=== PATIENT | male | born 1945 | race African-American/Black ===

== ENCOUNTER → 2016-06-13 | Outpatient (CLI) | payer MEDICARE, OTHER ==
[2016-06-13 11:55] LABS: Basophils # (auto) 0.1 uL; Basophils % (auto) 0.7 % (0.0-2.0); DEFINITIVE VIEW TRANSMISSION; Eosinophils # (auto) 0.1 uL; Hematocrit 45.5 % (41.0-53.0); Hemoglobin 14.7 g/dL (13.5-17.5); Lymphocytes # (auto) 1.8 uL; Lymphocytes % (auto) 24.3 % (10.0-50.0); Mean Corpuscular Hemoglobin 29.1 pg (28.0-32.0); Mean Corpuscular Hgb Conc. 32.2 g/dL (32.0-36.0); Mean Corpuscular Volume 90.4 fL (80.0-100.0); Mean Platelet Volume 8.2 fL (7.4-10.4); Monocytes # (auto) 1.1 uL; Neutrophils # (auto) 4.5 uL; Platelet Count (auto) 644 10^3/uL (140-450); SUSPECT VIEW TRANSMISSION; White Blood Cell 7.6 10^3/uL (4.4-10.8)
[2016-06-13 11:58] LABS: Urine Bilirubin Negative (Negative); Urine Color Yellow (Yellow); Urine Glucose Normal (Normal); Urine Ketone Negative (Negative); Urine Nitrite Negative (Negative); Urine RBC 5 /hpf (0 - 3); Urine Squamous Epithelial Cell FEW /hpf (<5); Urine Urobilinogen Normal (Negative); Urine pH 5.5 (5.0-8.0)
[2016-06-13 12:00] LABS: Urine Blood 1+ /uL (Negative)
[2016-06-13 12:05] LABS: Red Cell Distribution Width 22.3 % (11.6-16.0)
[2016-06-13 12:11] LABS: Albumin 4.1 g/dL (3.4-5.0); BUN/Creatinine Ratio 10.3; Bilirubin, Total 1.2 mg/dL (0.2-1.0); Calcium 9.1 mg/dL (8.5-10.1); Potassium 4.2 mmol/L (3.5-5.1); Total Protein 8.1 g/dL (6.4-8.2)
== END | disposition home or self-care (01) ==
LOC: LAB 11:08
PROVIDERS: ATTEND Internal Medicine
DX: D47.3 Essential (hemorrhagic) thrombocythemia (principal)
CPT/HCPCS: 36415; 80053; 80061; 81001; 83540; 85025

== ENCOUNTER → 2016-06-27 | Outpatient (CLI) | payer MEDICARE, OTHER | END | disposition home or self-care (01) | LOC: LAB 10:47 | PROVIDERS: ATTEND Internal Medicine | DX: Z01.89 Encounter for other specified special examinations (principal) | CPT/HCPCS: 36415; 82565; 84520 ==

== ENCOUNTER → 2016-07-26 | Outpatient (CLI) | payer MEDICARE, OTHER, BC ==
[2016-07-26 12:01] LABS: Basophils # (auto) 0.1 uL; Basophils % (auto) 0.9 % (0.0-2.0); DEFINITIVE VIEW TRANSMISSION; Eosinophils # (auto) 0.1 uL; Eosinophils % (auto) 1.1 % (0.0-7.0); Hematocrit 49.7 % (41.0-53.0); Lymphocytes # (auto) 1.4 uL; Lymphocytes % (auto) 22.7 % (10.0-50.0); Mean Corpuscular Hemoglobin 29.1 pg (28.0-32.0); Mean Corpuscular Hgb Conc. 32.2 g/dL (32.0-36.0); Mean Corpuscular Volume 90.5 fL (80.0-100.0); Mean Platelet Volume 8.4 fL (7.4-10.4); Monocytes # (auto) 0.8 uL; Monocytes % (auto) 13.1 % (0.0-12.0); Neutrophils # (auto) 3.9 uL; Neutrophils % (auto) 62.2 % (37.0-80.0); Platelet Count (auto) 600 10^3/uL (140-450); White Blood Cell 6.2 10^3/uL (4.4-10.8)
[2016-07-26 12:05] LABS: Red Cell Distribution Width 21.9 % (11.6-16.0)
[2016-07-26 12:24] LABS: Anisocytosis Moderate; Large Platelets FEW; Ovalocytes FEW; Platelet Estimate Increased
[2016-07-26 12:25] LABS: Stomatocytes Few; Wright Stain Ready for Review
[2016-07-26 13:18] LABS: Albumin 4.2 g/dL (3.4-5.0); BUN/Creatinine Ratio 8.1; Bilirubin, Total 1.3 mg/dL (0.2-1.0); Calcium 9.4 mg/dL (8.5-10.1); Total Protein 8.4 g/dL (6.4-8.2)
== END | disposition home or self-care (01) ==
LOC: LAB 10:37
PROVIDERS: ATTEND Internal Medicine
DX: R10.9 Unspecified abdominal pain (principal)
CPT/HCPCS: 36415; 80053; 82728; 83540; 83550; 83615; 85025; 85652; 86141

== ENCOUNTER → 2016-09-13 | Outpatient (CLI) | payer MEDICARE, OTHER, BC ==
[2016-09-13 11:31] LABS: Basophils # (auto) 0.1 uL; Basophils % (auto) 0.8 % (0.0-2.0); CONDITION Y; DEFINITIVE SEE PRINTOUT; Eosinophils # (auto) 0.1 uL; Eosinophils % (auto) 1.6 % (0.0-7.0); Hematocrit 47.9 % (41.0-53.0); Hemoglobin 15.4 g/dL (13.5-17.5); Lymphocytes # (auto) 1.6 uL; Lymphocytes % (auto) 21.1 % (10.0-50.0); Mean Corpuscular Hemoglobin 28.7 pg (28.0-32.0); Mean Corpuscular Hgb Conc. 32.1 g/dL (32.0-36.0); Mean Corpuscular Volume 89.3 fL (80.0-100.0); Mean Platelet Volume 8.4 fL (7.4-10.4); Monocytes # (auto) 1.1 uL; Neutrophils # (auto) 4.8 uL; Neutrophils % (auto) 62.5 % (37.0-80.0); Platelet Count (auto) 647 10^3/uL (140-450); Red Cell Distribution Width 22.1 % (11.6-16.0); SUSPECT SEE PRINTOUT; White Blood Cell 7.6 10^3/uL (4.4-10.8)
[2016-09-13 11:57] LABS: Albumin 3.7 g/dL (3.4-5.0); BUN/Creatinine Ratio 10.2; Bilirubin, Total 0.7 mg/dL (0.2-1.0); Calcium 8.5 mg/dL (8.5-10.1); Potassium 3.9 mmol/L (3.5-5.1); Total Protein 7.7 g/dL (6.4-8.2)
== END | disposition home or self-care (01) ==
LOC: LAB 11:02
PROVIDERS: ATTEND Internal Medicine
DX: D47.3 Essential (hemorrhagic) thrombocythemia (principal)
CPT/HCPCS: 36415; 80053; 83615; 85025

== ENCOUNTER → 2016-09-21 | Outpatient (CLI) | payer MEDICARE, OTHER | END | disposition home or self-care (01) | LOC: LAB 11:49 | PROVIDERS: ATTEND Internal Medicine | DX: D47.3 Essential (hemorrhagic) thrombocythemia (principal) | CPT/HCPCS: 82270 ==

== ENCOUNTER → 2016-10-20 | Outpatient (CLI) | payer MEDICARE, OTHER ==
[2016-10-20 11:08] LABS: Basophils # (auto) 0.1 uL; CONDITION Y; DEFINITIVE SEE PRINTOUT; Eosinophils # (auto) 0.1 uL; Eosinophils % (auto) 1.4 % (0.0-7.0); Hematocrit 45.5 % (41.0-53.0); Hemoglobin 14.9 g/dL (13.5-17.5); Lymphocytes # (auto) 1.7 uL; Mean Corpuscular Hemoglobin 28.7 pg (28.0-32.0); Mean Corpuscular Hgb Conc. 32.6 g/dL (32.0-36.0); Mean Corpuscular Volume 88.1 fL (80.0-100.0); Mean Platelet Volume 8.6 fL (7.4-10.4); Monocytes # (auto) 0.9 uL; Monocytes % (auto) 12.5 % (0.0-12.0); Neutrophils # (auto) 4.5 uL; Neutrophils % (auto) 62.1 % (37.0-80.0); Platelet Count (auto) 651 10^3/uL (140-450); SUSPECT SEE PRINTOUT; White Blood Cell 7.2 10^3/uL (4.4-10.8)
[2016-10-20 11:16] LABS: Red Cell Distribution Width 23.1 % (11.6-16.0)
[2016-10-20 11:47] LABS: Anisocytosis Slight; Large Platelets FEW; Ovalocytes FEW; Platelet Estimate Increa
== END | disposition home or self-care (01) ==
LOC: LAB 10:31
PROVIDERS: ATTEND Internal Medicine
DX: D47.3 Essential (hemorrhagic) thrombocythemia (principal)
CPT/HCPCS: 36415; 85025

== ENCOUNTER → 2016-11-02 | Outpatient (CLI) | payer MEDICARE, OTHER | END | disposition home or self-care (01) | LOC: LAB 11:00 | PROVIDERS: ATTEND Internal Medicine | DX: D47.3 Essential (hemorrhagic) thrombocythemia (principal) | CPT/HCPCS: 85097 ==

== ENCOUNTER → 2016-12-13 | Outpatient (CLI) | payer MEDICARE, OTHER ==
[2016-12-13 12:25] LABS: Basophils # (auto) 0.1 uL; Eosinophils # (auto) 0.1 uL; Hemoglobin 14.5 g/dL (13.5-17.5); Lymphocytes # (auto) 1.8 uL; Nucleated Red Blood Cells % 0.2 %; White Blood Cell 8.3 10^3/uL (4.4-10.8)
[2016-12-13 12:27] LABS: Basophils % (auto) 0.8 % (0.0-2.0); Eosinophils % (auto) 1.5 % (0.0-7.0); Lymphocytes % (auto) 21.2 % (10.0-50.0); Mean Corpuscular Hemoglobin 29.3 pg (28.0-32.0); Mean Corpuscular Hgb Conc. 32.9 g/dL (32.0-36.0); Mean Corpuscular Volume 88.9 fL (80.0-100.0); Mean Platelet Volume 8.1 fL (6.9-10.8); Monocytes # (auto) 1.1 uL; Monocytes % (auto) 13.8 % (0.0-12.0); Neutrophils # (auto) 5.2 uL; Neutrophils % (auto) 62.7 % (37.0-80.0); Platelet Count (auto) 566 10^3/uL (140-450)
[2016-12-13 13:13] LABS: Anisocytosis Slight
[2016-12-13 13:14] LABS: Large Platelets FEW; Ovalocytes FEW; Platelet Estimate Marked; Schistocytes FEW
== END | disposition home or self-care (01) ==
LOC: LAB 11:41
PROVIDERS: ATTEND Internal Medicine
DX: D47.3 Essential (hemorrhagic) thrombocythemia (principal)
CPT/HCPCS: 36415; 85025

== ENCOUNTER → 2017-01-24 | Outpatient (CLI) | payer MEDICARE, OTHER ==
[2017-01-24 10:56] LABS: Eosinophils # (auto) 0.1 uL; Hemoglobin 14.9 g/dL (13.5-17.5); Mean Platelet Volume 8.4 fL (6.9-10.8); Nucleated Red Blood Cells % 0.1 %; White Blood Cell 6.9 10^3/uL (4.4-10.8)
[2017-01-24 10:57] LABS: Basophils # (auto) 0.1 uL; Basophils % (auto) 2.1 % (0.0-2.0); Eosinophils % (auto) 1.2 % (0.0-7.0); Hematocrit 45.2 % (41.0-53.0); Lymphocytes # (auto) 1.7 uL; Mean Corpuscular Volume 90.9 fL (80.0-100.0); Monocytes % (auto) 14.2 % (0.0-12.0); Neutrophils # (auto) 4.1 uL; Neutrophils % (auto) 58.5 % (37.0-80.0); Platelet Count (auto) 446 10^3/uL (140-450)
[2017-01-24 11:07] LABS: Red Cell Distribution Width 24.4 % (11.8-14.3)
[2017-01-24 11:37] LABS: BUN/Creatinine Ratio 8.7; Bilirubin, Total 1.1 mg/dL (0.2-1.0); Calcium 9.3 mg/dL (8.5-10.1); Potassium 4.1 mmol/L (3.5-5.1); Total Protein 8.3 g/dL (6.4-8.2)
== END | disposition home or self-care (01) ==
LOC: LAB 09:57
PROVIDERS: ATTEND Internal Medicine
DX: D47.3 Essential (hemorrhagic) thrombocythemia (principal)
CPT/HCPCS: 36415; 80053; 83615; 85025

== ENCOUNTER → 2017-02-16 | Outpatient (CLI) | payer MEDICARE, OTHER ==
[2017-02-16 13:05] LABS: Basophils # (auto) 0.1 uL; Eosinophils # (auto) 0.1 uL; Lymphocytes # (auto) 1.6 uL; Mean Platelet Volume 8.2 fL (6.9-10.8); Neutrophils # (auto) 3.8 uL
[2017-02-16 13:06] LABS: Basophils % (auto) 2.2 % (0.0-2.0); Eosinophils % (auto) 1.2 % (0.0-7.0); Hematocrit 47.1 % (41.0-53.0); Hemoglobin 15.1 g/dL (13.5-17.5); Lymphocytes % (auto) 23.5 % (10.0-50.0); Mean Corpuscular Hemoglobin 29.6 pg (28.0-32.0); Mean Corpuscular Volume 92.5 fL (80.0-100.0); Monocytes # (auto) 1.1 uL; Monocytes % (auto) 15.9 % (0.0-12.0); Neutrophils % (auto) 57.2 % (37.0-80.0); Nucleated Red Blood Cells % 0.2 %; Platelet Count (auto) 468 10^3/uL (140-450); White Blood Cell 6.6 10^3/uL (4.4-10.8)
[2017-02-16 13:13] LABS: Red Cell Distribution Width 25.1 % (11.8-14.3)
[2017-02-16 13:31] LABS: Albumin 3.9 g/dL (3.4-5.0); BUN/Creatinine Ratio 9.2; Bilirubin, Total 0.9 mg/dL (0.2-1.0); Calcium 8.7 mg/dL (8.5-10.1); Potassium 3.9 mmol/L (3.5-5.1)
[2017-02-16 14:17] LABS: Anisocytosis Moderate; Ovalocytes FEW; Platelet Estimate Adequate
== END | disposition home or self-care (01) ==
LOC: LAB 12:29
PROVIDERS: ATTEND Internal Medicine
DX: D47.3 Essential (hemorrhagic) thrombocythemia (principal); Z84.2 Family history of other diseases of the genitourinary system; Z79.899 Other long term (current) drug therapy
CPT/HCPCS: 36415; 80053; 84146; 84403; 84439; 84443; 85025

== ENCOUNTER → 2017-03-20 | Outpatient (CLI) | payer MEDICARE, OTHER ==
[2017-03-20 12:28] LABS: Basophils # (auto) 0.2 uL; Basophils % (auto) 2.8 % (0.0-2.0); Eosinophils # (auto) 0.1 uL; Eosinophils % (auto) 1.2 % (0.0-7.0); Hematocrit 46.3 % (41.0-53.0); Lymphocytes # (auto) 1.5 uL; Lymphocytes % (auto) 24.4 % (10.0-50.0); Mean Corpuscular Hemoglobin 30.7 pg (28.0-32.0); Mean Corpuscular Hgb Conc. 32.3 g/dL (32.0-36.0); Mean Corpuscular Volume 95.1 fL (80.0-100.0); Monocytes # (auto) 0.8 uL; Neutrophils # (auto) 3.4 uL; Neutrophils % (auto) 57.6 % (37.0-80.0); Nucleated Red Blood Cells % 0.2 %; Platelet Count (auto) 438 10^3/uL (140-450); Red Blood Cells 4.87 10^6/uL (4.5-5.90)
== END | disposition home or self-care (01) ==
LOC: LAB 12:02
PROVIDERS: ATTEND Internal Medicine
DX: D47.3 Essential (hemorrhagic) thrombocythemia (principal); N52.9 Male erectile dysfunction, unspecified; N40.0 Benign prostatic hyperplasia without lower urinary tract symptoms; Z79.02 Long term (current) use of antithrombotics/antiplatelets
CPT/HCPCS: 36415; 84153; 85025

== ENCOUNTER → 2017-05-28 | Outpatient (CLI) | payer MEDICARE, OTHER, BC ==
[2017-05-28 11:46] LABS: Basophils # (auto) 0.1 uL; Basophils % (auto) 1.3 % (0.0-2.0); Eosinophils # (auto) 0.1 uL; Eosinophils % (auto) 1.3 % (0.0-7.0); Hematocrit 45.3 % (41.0-53.0); Hemoglobin 14.6 g/dL (13.5-17.5); Lymphocytes # (auto) 1.6 uL; Lymphocytes % (auto) 26.3 % (10.0-50.0); Mean Corpuscular Hemoglobin 32.3 pg (28.0-32.0); Mean Corpuscular Hgb Conc. 32.2 g/dL (32.0-36.0); Mean Corpuscular Volume 100.1 fL (80.0-100.0); Monocytes % (auto) 16.4 % (0.0-12.0); Neutrophils # (auto) 3.3 uL; Neutrophils % (auto) 54.7 % (37.0-80.0); Nucleated Red Blood Cells % 0.3 %; Platelet Count (auto) 376 10^3/uL (140-450); Red Blood Cells 4.53 10^6/uL (4.5-5.90); Red Cell Distribution Width 20.1 % (11.8-14.3)
== END | disposition home or self-care (01) ==
LOC: LAB 11:27
PROVIDERS: ATTEND Internal Medicine
DX: D47.3 Essential (hemorrhagic) thrombocythemia (principal)
CPT/HCPCS: 36415; 85025

== ENCOUNTER → 2017-06-19 | Outpatient (CLI) | payer MEDICARE, OTHER ==
[2017-06-19 12:01] LABS: Cholesterol 144 mg/dL (< 200); HDL Cholesterol 40 mg/dL (40-59); LDL Cholesterol 81 mg/dL (< 100); Triglycerides 104 mg/dL (< 150)
== END | disposition home or self-care (01) ==
LOC: LAB 10:55
PROVIDERS: ATTEND Internal Medicine
DX: N52.9 Male erectile dysfunction, unspecified (principal); I10 Essential (primary) hypertension; Z79.899 Other long term (current) drug therapy
CPT/HCPCS: 36415; 80061; 84403

== ENCOUNTER → 2017-07-24 | Outpatient (CLI) | payer MEDICARE, OTHER ==
[2017-07-24 13:30] LABS: Basophils # (auto) 0.1 uL; Basophils % (auto) 2.3 % (0.0-2.0); Eosinophils # (auto) 0 uL; Eosinophils % (auto) 0.8 % (0.0-7.0); Hematocrit 44.1 % (41.0-53.0); Hemoglobin 14.4 g/dL (13.5-17.5); Lymphocytes # (auto) 1.4 uL; Lymphocytes % (auto) 27.1 % (10.0-50.0); Mean Corpuscular Hemoglobin 33.1 pg (28.0-32.0); Mean Corpuscular Hgb Conc. 32.6 g/dL (32.0-36.0); Mean Corpuscular Volume 101.6 fL (80.0-100.0); Monocytes # (auto) 0.9 uL; Neutrophils # (auto) 2.9 uL; Neutrophils % (auto) 53.8 % (37.0-80.0); Platelet Count (auto) 340 10^3/uL (140-450); Red Blood Cells 4.34 10^6/uL (4.5-5.90); White Blood Cell 5.3 10^3/uL (4.4-10.8)
== END | disposition home or self-care (01) ==
LOC: LAB 13:12
PROVIDERS: ATTEND Internal Medicine
DX: D47.3 Essential (hemorrhagic) thrombocythemia (principal); I10 Essential (primary) hypertension; Z79.899 Other long term (current) drug therapy
CPT/HCPCS: 36415; 85025

== ENCOUNTER → 2017-12-06 | Outpatient (CLI) | payer MEDICARE, OTHER ==
[2017-12-06 12:04] LABS: Basophils # (auto) 0.1 uL; Basophils % (auto) 1.9 % (0.0-2.0); Eosinophils # (auto) 0 uL; Hematocrit 46.6 % (41.0-53.0); Lymphocytes # (auto) 1.2 uL; Lymphocytes % (auto) 23.4 % (10.0-50.0); Mean Corpuscular Hemoglobin 32.5 pg (28.0-32.0); Mean Corpuscular Hgb Conc. 32.2 g/dL (32.0-36.0); Mean Corpuscular Volume 100.7 fL (80.0-100.0); Monocytes # (auto) 0.7 uL; Monocytes % (auto) 13.4 % (0.0-12.0); Neutrophils # (auto) 3.1 uL; Neutrophils % (auto) 60.3 % (37.0-80.0); Nucleated Red Blood Cells % 0.1 %; Platelet Count (auto) 399 10^3/uL (140-450); Red Blood Cells 4.63 10^6/uL (4.5-5.90); Red Cell Distribution Width 19.9 % (11.8-14.3); White Blood Cell 5.1 10^3/uL (4.4-10.8)
== END | disposition home or self-care (01) ==
LOC: LAB 11:21
PROVIDERS: ATTEND Internal Medicine
DX: D47.3 Essential (hemorrhagic) thrombocythemia (principal)
CPT/HCPCS: 36415; 85025

== ENCOUNTER → 2018-02-07 | Outpatient (CLI) | payer MEDICARE, OTHER ==
[2018-02-07 14:03] LABS: Basophils # (auto) 0.1 uL; Basophils % (auto) 0.9 % (0.0-2.0); Eosinophils # (auto) 0.1 uL; Eosinophils % (auto) 1.2 % (0.0-7.0); Hematocrit 46.6 % (41.0-53.0); Lymphocytes # (auto) 1.5 uL; Lymphocytes % (auto) 24.5 % (10.0-50.0); Mean Corpuscular Hemoglobin 32.1 pg (28.0-32.0); Mean Corpuscular Hgb Conc. 32.1 g/dL (32.0-36.0); Mean Corpuscular Volume 100.1 fL (80.0-100.0); Monocytes # (auto) 0.9 uL; Neutrophils # (auto) 3.6 uL; Neutrophils % (auto) 58.4 % (37.0-80.0); Nucleated Red Blood Cells % 0.2 %; Platelet Count (auto) 395 10^3/uL (140-450); Red Blood Cells 4.66 10^6/uL (4.5-5.90); Red Cell Distribution Width 19.9 % (11.8-14.3); White Blood Cell 6.2 10^3/uL (4.4-10.8)
[2018-02-07 14:19] LABS: Potassium 4.4 mmol/L (3.5-5.1)
[2018-02-07 14:36] LABS: Albumin 3.9 g/dL (3.4-5.0); BUN/Creatinine Ratio 9.3
== END | disposition home or self-care (01) ==
LOC: LAB 11:23
PROVIDERS: ATTEND Internal Medicine
DX: D47.3 Essential (hemorrhagic) thrombocythemia (principal)
CPT/HCPCS: 36415; 80053; 83615; 85025

== ENCOUNTER → 2018-02-19 | Outpatient (CLI) | payer MEDICARE, OTHER | END | disposition home or self-care (01) | LOC: LAB 10:28 | PROVIDERS: ATTEND Internal Medicine | DX: Z12.11 Encounter for screening for malignant neoplasm of colon (principal) | CPT/HCPCS: 82270 ==

== ENCOUNTER → 2018-05-06 | Outpatient (CLI) | payer MEDICARE, OTHER ==
[2018-05-06 11:57] LABS: Basophils # (auto) 0.1 uL; Basophils % (auto) 1.3 % (0.0-2.0); Eosinophils # (auto) 0.1 uL; Hematocrit 46.8 % (41.0-53.0); Hemoglobin 14.6 g/dL (13.5-17.5); Lymphocytes # (auto) 1.5 uL; Lymphocytes % (auto) 22.7 % (10.0-50.0); Mean Corpuscular Hemoglobin 31.2 pg (28.0-32.0); Mean Corpuscular Hgb Conc. 31.2 g/dL (32.0-36.0); Mean Corpuscular Volume 100.1 fL (80.0-100.0); Monocytes # (auto) 1.1 uL; Monocytes % (auto) 16.9 % (0.0-12.0); Neutrophils # (auto) 3.9 uL; Neutrophils % (auto) 58.1 % (37.0-80.0); Platelet Count (auto) 393 10^3/uL (140-450); Red Blood Cells 4.68 10^6/uL (4.5-5.90); Red Cell Distribution Width 19.8 % (11.8-14.3); White Blood Cell 6.7 10^3/uL (4.4-10.8)
== END | disposition home or self-care (01) ==
LOC: LAB 11:16
PROVIDERS: ATTEND Internal Medicine
DX: D47.3 Essential (hemorrhagic) thrombocythemia (principal)
CPT/HCPCS: 36415; 85025

== ENCOUNTER → 2018-09-13 | Outpatient (CLI) | payer MEDICARE, OTHER ==
[2018-09-13 12:42] LABS: Basophils # (auto) 0.1 uL; Basophils % (auto) 2.1 % (0.0-2.0); Eosinophils # (auto) 0.1 uL; Eosinophils % (auto) 1.3 % (0.0-7.0); Hematocrit 44.7 % (41.0-53.0); Hemoglobin 14.5 g/dL (13.5-17.5); Lymphocytes # (auto) 1.5 uL; Lymphocytes % (auto) 24.7 % (10.0-50.0); Mean Corpuscular Hemoglobin 31.8 pg (28.0-32.0); Mean Corpuscular Hgb Conc. 32.5 g/dL (32.0-36.0); Mean Corpuscular Volume 97.9 fL (80.0-100.0); Monocytes # (auto) 0.9 uL; Monocytes % (auto) 14.5 % (0.0-12.0); Neutrophils # (auto) 3.4 uL; Neutrophils % (auto) 57.4 % (37.0-80.0); Nucleated Red Blood Cells % 0.2 %; Platelet Count (auto) 440 10^3/uL (140-450); Red Blood Cells 4.57 10^6/uL (4.5-5.90); White Blood Cell 5.9 10^3/uL (4.4-10.8)
[2018-09-13 13:39] LABS: Red Cell Distribution Width 20.4 % (11.8-14.3)
== END | disposition home or self-care (01) ==
LOC: LAB 11:16
PROVIDERS: ATTEND Internal Medicine
DX: D47.3 Essential (hemorrhagic) thrombocythemia (principal)
CPT/HCPCS: 36415; 85025

== ENCOUNTER → 2018-12-05 | Outpatient (CLI) | payer MEDICARE, OTHER ==
[2018-12-05 09:40] LABS: Basophils # (auto) 0.1 uL; Basophils % (auto) 1.6 % (0.0-2.0); Eosinophils # (auto) 0.1 uL; Eosinophils % (auto) 1.4 % (0.0-7.0); Hematocrit 45.1 % (41.0-53.0); Lymphocytes # (auto) 1.4 uL; Mean Corpuscular Hemoglobin 31.6 pg (28.0-32.0); Mean Corpuscular Hgb Conc. 33.2 g/dL (32.0-36.0); Mean Corpuscular Volume 95.2 fL (80.0-100.0); Monocytes # (auto) 0.8 uL; Monocytes % (auto) 11.7 % (0.0-12.0); Neutrophils # (auto) 4.2 uL; Neutrophils % (auto) 64.3 % (37.0-80.0); Platelet Count (auto) 416 10^3/uL (140-450); Red Blood Cells 4.74 10^6/uL (4.5-5.90); Red Cell Distribution Width 19.9 % (11.8-14.3); White Blood Cell 6.5 10^3/uL (4.4-10.8)
== END | disposition home or self-care (01) ==
LOC: LAB 09:28
PROVIDERS: ATTEND Internal Medicine
DX: D47.3 Essential (hemorrhagic) thrombocythemia (principal)
CPT/HCPCS: 36415; 85025

== ENCOUNTER → 2019-01-14 | Outpatient (CLI) | payer MEDICARE, OTHER, BC ==
[2019-01-14 10:25] LABS: Urine Bacteria NONE SEEN /hpf (None Seen); Urine Blood 1+ /uL (Negative); Urine Mucus FEW (None Seen); Urine Specific Gravity 1.018 (1.001-1.035); Urine WBC 3 /hpf (0 - 3)
[2019-01-14 10:53] LABS: Albumin 3.9 g/dL (3.4-5.0); Calcium 8.7 mg/dL (8.5-10.1)
[2019-01-14 10:58] LABS: Bilirubin, Total 0.9 mg/dL (0.2-1.0); Total Protein 7.8 g/dL (6.4-8.2)
== END | disposition home or self-care (01) ==
LOC: LAB 09:58
PROVIDERS: ATTEND Internal Medicine
DX: R53.83 Other fatigue (principal); D47.3 Essential (hemorrhagic) thrombocythemia; R79.89 Other specified abnormal findings of blood chemistry
CPT/HCPCS: 36415; 80053; 80061; 81001; 84439; 84443

== ENCOUNTER → 2019-01-23 | Outpatient (CLI) | payer MEDICARE, BC | END | disposition home or self-care (01) | LOC: LAB 09:52 | PROVIDERS: ATTEND Internal Medicine | DX: D47.3 Essential (hemorrhagic) thrombocythemia (principal); R53.83 Other fatigue | CPT/HCPCS: 82270 ==

== ENCOUNTER → 2019-03-13 | Outpatient (CLI) | payer MEDICARE, BC ==
[2019-03-13 11:59] LABS: Basophils # (auto) 0.1 uL; Eosinophils # (auto) 0.1 uL; Eosinophils % (auto) 1.4 % (0.0-7.0); Lymphocytes # (auto) 1.2 uL; Neutrophils # (auto) 3.6 uL
[2019-03-13 12:00] LABS: Basophils % (auto) 2.5 % (0.0-2.0); Hematocrit 49.1 % (41.0-53.0); Hemoglobin 15.9 g/dL (13.5-17.5); Lymphocytes % (auto) 21.2 % (10.0-50.0); Mean Corpuscular Hemoglobin 32.1 pg (28.0-32.0); Mean Corpuscular Hgb Conc. 32.4 g/dL (32.0-36.0); Mean Corpuscular Volume 99.3 fL (80.0-100.0); Monocytes # (auto) 0.6 uL; Monocytes % (auto) 11.2 % (0.0-12.0); Neutrophils % (auto) 63.7 % (37.0-80.0); Nucleated Red Blood Cells % 0.2 %; Platelet Count (auto) 470 10^3/uL (140-450); Red Blood Cells 4.95 10^6/uL (4.5-5.90); White Blood Cell 5.6 10^3/uL (4.4-10.8)
[2019-03-13 12:07] LABS: Red Cell Distribution Width 20.2 % (11.8-14.3)
== END | disposition home or self-care (01) ==
LOC: LAB 11:19
PROVIDERS: ATTEND Internal Medicine
DX: D47.3 Essential (hemorrhagic) thrombocythemia (principal)
CPT/HCPCS: 36415; 84550; 85025; 86200

== ENCOUNTER → 2019-06-30 | Outpatient (CLI) | payer MEDICARE, BC ==
[2019-06-30 11:00] LABS: Basophils # (auto) 0.2 10 ^3/uL (0-0.2); Basophils % (auto) 2.4 % (0.0-2.0); Eosinophils # (auto) 0.1 10 ^3/uL (0-0.8); Eosinophils % (auto) 1.3 % (0.0-7.0); Hematocrit 47.2 % (41.0-53.0); Hemoglobin 15.4 g/dL (13.5-17.5); Lymphocytes # (auto) 1.3 10 ^3/uL (0.4-5.4); Lymphocytes % (auto) 21.1 % (10.0-50.0); Mean Corpuscular Hgb Conc. 32.5 g/dL (32.0-36.0); Mean Corpuscular Volume 98.3 fL (80.0-100.0); Monocytes # (auto) 0.8 10 ^3/uL (0-1.3); Monocytes % (auto) 12.5 % (0.0-12.0); Neutrophils % (auto) 62.7 % (37.0-80.0); Nucleated Red Blood Cells % 0.2 %; Platelet Count (auto) 404 10^3/uL (140-450); White Blood Cell 6.4 10^3/uL (4.4-10.8)
== END | disposition home or self-care (01) ==
LOC: LAB 10:44
PROVIDERS: ATTEND Internal Medicine
DX: D47.3 Essential (hemorrhagic) thrombocythemia (principal)
CPT/HCPCS: 36415; 85025

== ENCOUNTER → 2019-10-10 | Outpatient (CLI) | payer MEDICARE, BC ==
[2019-10-10 12:09] LABS: Basophils # (auto) 0.1 10 ^3/uL (0-0.2); Basophils % (auto) 1.4 % (0.0-2.0); Eosinophils # (auto) 0.1 10 ^3/uL (0-0.8); Hemoglobin 15.2 g/dL (13.5-17.5); Lymphocytes # (auto) 1.1 10 ^3/uL (0.4-5.4); Monocytes # (auto) 0.7 10 ^3/uL (0-1.3)
[2019-10-10 12:10] LABS: Eosinophils % (auto) 1.2 % (0.0-7.0); Lymphocytes % (auto) 18.9 % (10.0-50.0); Mean Corpuscular Hemoglobin 32.6 pg (28.0-32.0); Mean Corpuscular Hgb Conc. 32.2 g/dL (32.0-36.0); Monocytes % (auto) 11.8 % (0.0-12.0); Neutrophils % (auto) 66.7 % (37.0-80.0); Nucleated Red Blood Cells % 0.3 %; Platelet Count (auto) 440 10^3/uL (140-450); Red Blood Cells 4.66 10^6/uL (4.5-5.90)
[2019-10-10 12:35] LABS: Albumin 4.1 g/dL (3.4-5.0); Calcium 9.2 mg/dL (8.5-10.1); Potassium 3.8 mmol/L (3.5-5.1)
[2019-10-10 12:38] LABS: BUN/Creatinine Ratio 10.2; Total Protein 8.1 g/dL (6.4-8.2)
== END | disposition home or self-care (01) ==
LOC: LAB 11:37
PROVIDERS: ATTEND Internal Medicine
DX: D47.3 Essential (hemorrhagic) thrombocythemia (principal)
CPT/HCPCS: 36415; 80053; 83615; 85025

== ENCOUNTER → 2020-01-06 | Outpatient (CLI) | payer MEDICARE, BC ==
[2020-01-06 12:34] LABS: Eosinophils # (auto) 0.1 10 ^3/uL (0-0.8); Hemoglobin 14.6 g/dL (13.5-17.5); White Blood Cell 5.6 10^3/uL (4.4-10.8)
[2020-01-06 12:36] LABS: Basophils # (auto) 0 10 ^3/uL (0-0.2); Basophils % (auto) 0.8 % (0.0-2.0); Mean Corpuscular Hemoglobin 33.3 pg (28.0-32.0); Mean Corpuscular Hgb Conc. 32.5 g/dL (32.0-36.0); Mean Corpuscular Volume 102.6 fL (80.0-100.0); Monocytes # (auto) 0.6 10 ^3/uL (0-1.3); Monocytes % (auto) 10.8 % (0.0-12.0); Neutrophils % (auto) 70.4 % (37.0-80.0); Nucleated Red Blood Cells % 0.1 %; Platelet Count (auto) 473 10^3/uL (140-450); Red Blood Cells 4.39 10^6/uL (4.5-5.90); Red Cell Distribution Width 18.7 % (11.8-14.3); Urine Bacteria NONE SEEN /hpf (None Seen); Urine Blood 1+ /uL (Negative); Urine Mucus FEW (None Seen); Urine Specific Gravity 1.018 (1.001-1.035); Urine WBC <1 /hpf (0 - 3)
[2020-01-06 13:36] LABS: Calcium 8.9 mg/dL (8.5-10.1); Potassium 4.1 mmol/L (3.5-5.1)
[2020-01-06 13:41] LABS: BUN/Creatinine Ratio 7.6; Total Protein 7.7 g/dL (6.4-8.2); Uric Acid 4.4 mg/dL (3.5-7.2)
[2020-01-06 13:45] LABS: Free T4 (Free Thyroxine) 1.01 ng/dL (0.89-1.76)
== END | disposition home or self-care (01) ==
LOC: LAB 12:11
PROVIDERS: ATTEND Internal Medicine
DX: D47.3 Essential (hemorrhagic) thrombocythemia (principal); R31.29 Other microscopic hematuria; M25.549 Pain in joints of unspecified hand; I10 Essential (primary) hypertension
CPT/HCPCS: 36415; 80053; 80061; 81001; 82607; 83615; 84439; 84443; 84550; 85025; 85652; 86200

== ENCOUNTER → 2020-01-12 | Outpatient (CLI) | payer MEDICARE, BC | END | disposition home or self-care (01) | LOC: LAB 12:53 | PROVIDERS: ATTEND Internal Medicine | DX: R31.21 Asymptomatic microscopic hematuria (principal); D47.3 Essential (hemorrhagic) thrombocythemia; M25.549 Pain in joints of unspecified hand | CPT/HCPCS: 82270 ==

== ENCOUNTER → 2020-02-27 | Outpatient (CLI) | payer MEDICARE, BC ==
[2020-02-27 09:52] LABS: Basophils # (auto) 0.2 10 ^3/uL (0-0.2); Eosinophils # (auto) 0.1 10 ^3/uL (0-0.8); Eosinophils % (auto) 1.3 % (0.0-7.0); Hemoglobin 14.8 g/dL (13.5-17.5)
[2020-02-27 09:57] LABS: Hematocrit 46.3 % (41.0-53.0); Lymphocytes # (auto) 1.3 10 ^3/uL (0.4-5.4); Mean Corpuscular Hemoglobin 32.5 pg (28.0-32.0); Mean Corpuscular Volume 101.5 fL (80.0-100.0); Monocytes # (auto) 0.6 10 ^3/uL (0-1.3); Monocytes % (auto) 10.7 % (0.0-12.0); Neutrophils # (auto) 3.7 10 ^3/uL (1.6-8.6); Nucleated Red Blood Cells % 0.1 %; Platelet Count (auto) 457 10^3/uL (140-450); Red Blood Cells 4.56 10^6/uL (4.5-5.90); Red Cell Distribution Width 19.2 % (11.8-14.3); White Blood Cell 5.9 10^3/uL (4.4-10.8)
== END | disposition home or self-care (01) ==
LOC: LAB 09:36
PROVIDERS: ATTEND Internal Medicine
DX: N40.0 Benign prostatic hyperplasia without lower urinary tract symptoms (principal); D47.3 Essential (hemorrhagic) thrombocythemia
CPT/HCPCS: 36415; 84153; 85025

== ENCOUNTER → 2020-05-25 | Outpatient (CLI) | payer MEDICARE, BC ==
[2020-05-25 13:03] LABS: Basophils # (auto) 0.1 10 ^3/uL (0-0.2); Basophils % (auto) 1.5 % (0.0-2.0); Eosinophils # (auto) 0.1 10 ^3/uL (0-0.8); Eosinophils % (auto) 2.7 % (0.0-7.0); Hematocrit 44.7 % (41.0-53.0); Hemoglobin 14.7 g/dL (13.5-17.5); Lymphocytes # (auto) 1.3 10 ^3/uL (0.4-5.4); Lymphocytes % (auto) 23.7 % (10.0-50.0); Mean Corpuscular Hemoglobin 32.9 pg (28.0-32.0); Mean Corpuscular Hgb Conc. 32.8 g/dL (32.0-36.0); Mean Corpuscular Volume 100.3 fL (80.0-100.0); Monocytes # (auto) 0.6 10 ^3/uL (0-1.3); Neutrophils # (auto) 3.2 10 ^3/uL (1.6-8.6); Neutrophils % (auto) 60.1 % (37.0-80.0); Nucleated Red Blood Cells % 0.1 %; Platelet Count (auto) 416 10^3/uL (140-450); Red Blood Cells 4.45 10^6/uL (4.5-5.90); Red Cell Distribution Width 18.6 % (11.8-14.3); White Blood Cell 5.3 10^3/uL (4.4-10.8)
[2020-05-25 13:39] LABS: Albumin 3.7 g/dL (3.4-5.0); BUN/Creatinine Ratio 10.1; Calcium 8.9 mg/dL (8.5-10.1); Potassium 4.5 mmol/L (3.5-5.1)
[2020-05-25 13:41] LABS: Bilirubin, Total 0.9 mg/dL (0.2-1.0); Total Protein 8.2 g/dL (6.4-8.2)
== END | disposition home or self-care (01) ==
LOC: LAB 12:50
PROVIDERS: ATTEND Internal Medicine
DX: D47.3 Essential (hemorrhagic) thrombocythemia (principal)
CPT/HCPCS: 36415; 80053; 83615; 85025

== ENCOUNTER → 2020-08-17 | Outpatient (CLI) | payer MEDICARE, BC ==
[2020-08-17 11:03] LABS: Basophils # (auto) 0.1 10 ^3/uL (0-0.2); Eosinophils # (auto) 0.1 10 ^3/uL (0-0.8); Lymphocytes # (auto) 1.1 10 ^3/uL (0.4-5.4); Mean Corpuscular Hemoglobin 32.7 pg (28.0-32.0); Monocytes # (auto) 0.7 10 ^3/uL (0-1.3)
[2020-08-17 11:05] LABS: Basophils % (auto) 1.3 % (0.0-2.0); Eosinophils % (auto) 1.1 % (0.0-7.0); Hematocrit 46.3 % (41.0-53.0); Lymphocytes % (auto) 18.6 % (10.0-50.0); Mean Corpuscular Hgb Conc. 32.5 g/dL (32.0-36.0); Mean Corpuscular Volume 100.6 fL (80.0-100.0); Monocytes % (auto) 11.4 % (0.0-12.0); Neutrophils % (auto) 67.6 % (37.0-80.0); Nucleated Red Blood Cells % 0.1 %; Platelet Count (auto) 460 10^3/uL (140-450); Red Cell Distribution Width 19.5 % (11.8-14.3); White Blood Cell 5.9 10^3/uL (4.4-10.8)
[2020-08-17 11:27] LABS: Potassium 3.9 mmol/L (3.5-5.1)
[2020-08-17 11:33] LABS: Albumin 3.9 g/dL (3.4-5.0); BUN/Creatinine Ratio 9.9; Bilirubin, Total 1.6 mg/dL (0.2-1.0); Calcium 9.1 mg/dL (8.5-10.1); Total Protein 7.9 g/dL (6.4-8.2)
== END | disposition home or self-care (01) ==
LOC: LAB 10:22
PROVIDERS: ATTEND Internal Medicine
DX: D47.3 Essential (hemorrhagic) thrombocythemia (principal)
CPT/HCPCS: 36415; 80053; 83615; 85025

== ENCOUNTER → 2021-01-27 | Outpatient (CLI) | payer MEDICARE, BC | END | disposition home or self-care (01) | LOC: LAB 13:46 | PROVIDERS: ATTEND Urology | DX: R82.89 Other abnormal findings on cytological and histological examination of urine (principal) ==

== ENCOUNTER → 2021-01-31 | Outpatient (CLI) | payer MEDICARE, BC ==
[2021-01-31 14:57] LABS: Basophils # (auto) 0.1 10 ^3/uL (0-0.2); Basophils % (auto) 1.9 % (0.0-2.0); Eosinophils # (auto) 0.1 10 ^3/uL (0-0.8); Eosinophils % (auto) 1.4 % (0.0-7.0); Hematocrit 47.8 % (41.0-53.0); Hemoglobin 15.2 g/dL (13.5-17.5); Lymphocytes % (auto) 19.2 % (10.0-50.0); Mean Corpuscular Hemoglobin 31.9 pg (28.0-32.0); Mean Corpuscular Hgb Conc. 31.9 g/dL (32.0-36.0); Monocytes # (auto) 0.6 10 ^3/uL (0-1.3); Monocytes % (auto) 11.7 % (0.0-12.0); Neutrophils # (auto) 3.6 10 ^3/uL (1.6-8.6); Neutrophils % (auto) 65.8 % (37.0-80.0); Red Blood Cells 4.78 10^6/uL (4.5-5.90); Red Cell Distribution Width 20.5 % (11.8-14.3); White Blood Cell 5.4 10^3/uL (4.4-10.8)
[2021-01-31 15:38] LABS: Albumin 3.7 g/dL (3.4-5.0); Calcium 8.6 mg/dL (8.5-10.1); Potassium 4.2 mmol/L (3.5-5.1)
[2021-01-31 15:44] LABS: BUN/Creatinine Ratio 10.2; Total Protein 7.8 g/dL (6.4-8.2)
== END | disposition home or self-care (01) ==
LOC: LAB 14:34
PROVIDERS: ATTEND Internal Medicine
DX: D47.3 Essential (hemorrhagic) thrombocythemia (principal)
CPT/HCPCS: 36415; 80053; 83615; 85025

== ENCOUNTER → 2022-01-18 | Outpatient (CLI) | payer MEDICARE, BC ==
[2022-01-18 12:28] LABS: Urine Bacteria NONE SEEN /hpf (None Seen); Urine Blood 2+ /uL (Negative); Urine Mucus FEW (None Seen); Urine Specific Gravity 1.016 (1.001-1.035); Urine WBC 2 /hpf (0 - 3)
[2022-01-18 12:29] LABS: Eosinophils # (auto) 0 10 ^3/uL (0-0.8); Monocytes # (auto) 0.4 10 ^3/uL (0-1.3)
[2022-01-18 12:31] LABS: Basophils # (auto) 0 10 ^3/uL (0-0.2); Basophils % (auto) 0.9 % (0.0-2.0); Eosinophils % (auto) 0.6 % (0.0-7.0); Hematocrit 44.2 % (41.0-53.0); Hemoglobin 14.3 g/dL (13.5-17.5); Lymphocytes % (auto) 19.8 % (10.0-50.0); Mean Corpuscular Hemoglobin 33.6 pg (28.0-32.0); Mean Corpuscular Hgb Conc. 32.4 g/dL (32.0-36.0); Mean Corpuscular Volume 103.6 fL (80.0-100.0); Monocytes % (auto) 8.3 % (0.0-12.0); Neutrophils # (auto) 3.4 10 ^3/uL (1.6-8.6); Neutrophils % (auto) 70.4 % (37.0-80.0); Nucleated Red Blood Cells % 0.2 %; Red Blood Cells 4.27 10^6/uL (4.5-5.90); Red Cell Distribution Width 18.6 % (11.8-14.3); White Blood Cell 4.9 10^3/uL (4.4-10.8)
[2022-01-18 13:23] LABS: Calcium 9.4 mg/dL (8.5-10.1); Magnesium 2.4 mg/dL (1.6-2.6); Potassium 3.9 mmol/L (3.5-5.1)
[2022-01-18 13:28] LABS: BUN/Creatinine Ratio 8.8; Bilirubin, Total 1.5 mg/dL (0.2-1.0); Total Protein 8.5 g/dL (6.4-8.2)
[2022-01-18 13:31] LABS: Free T4 (Free Thyroxine) 1.1 ng/dL (0.89-1.76)
[2022-01-18 13:32] LABS: Ferritin 159.3 ng/mL (10-322)
[2022-01-18 13:35] LABS: Thyroid Stimulating Hormone 1.74 uIU/mL (0.358-3.74)
== END | disposition home or self-care (01) ==
LOC: LAB 11:50
PROVIDERS: ATTEND Internal Medicine
DX: D47.3 Essential (hemorrhagic) thrombocythemia (principal); N40.0 Benign prostatic hyperplasia without lower urinary tract symptoms; H40.9 Unspecified glaucoma; Z79.899 Other long term (current) drug therapy
CPT/HCPCS: 36415; 80053; 80061; 81001; 82270; 82306; 82728; 83540; 83615; 83735; 84439; 84443; 85025; 85652

== ENCOUNTER → 2022-12-06 | Outpatient (CLI) | payer MEDICARE, BC ==
[2022-12-06 11:45] LABS: Basophils # (auto) 0 10 ^3/uL (0-0.2); Eosinophils # (auto) 0 10 ^3/uL (0-0.8); Monocytes # (auto) 0.5 10 ^3/uL (0-1.3); Neutrophils # (auto) 2.7 10 ^3/uL (1.6-8.6); Nucleated Red Blood Cells % 0.1 %; Urine Bacteria NONE SEEN /hpf (None Seen); Urine Blood 1+ /uL (Negative); Urine Clarity Clear (Clear); Urine Color Yellow (Yellow); Urine Protein, UAD Negative (Negative); Urine Specific Gravity 1.011 (1.001-1.035); Urine Urobilinogen Normal (Negative); Urine WBC 1 /hpf (0 - 3); Urine pH 5.5 (5.0-8.0); White Blood Cell 4.3 10^3/uL (4.4-10.8)
[2022-12-06 11:47] LABS: Basophils % (auto) 0.9 % (0.0-2.0); Eosinophils % (auto) 0.6 % (0.0-7.0); Hemoglobin 13.3 g/dL (13.5-17.5); Lymphocytes # (auto) 1.1 10 ^3/uL (0.4-5.4); Lymphocytes % (auto) 24.6 % (10.0-50.0); Mean Corpuscular Hemoglobin 34.3 pg (28.0-32.0); Mean Corpuscular Hgb Conc. 32.6 g/dL (32.0-36.0); Mean Corpuscular Volume 105.3 fL (80.0-100.0); Monocytes % (auto) 12.4 % (0.0-12.0); Neutrophils % (auto) 61.5 % (37.0-80.0); Red Blood Cells 3.89 10^6/uL (4.5-5.90); Red Cell Distribution Width 18.6 % (11.8-14.3)
[2022-12-06 12:20] LABS: Prostate Specific Antigen 4.66 ng/mL (0.0-4.0); Triglycerides 91 mg/dL (< 150)
[2022-12-06 12:21] LABS: LDL Cholesterol 60 mg/dL (< 100)
[2022-12-06 12:22] LABS: Cholesterol 114 mg/dL (< 200); HDL Cholesterol 34 mg/dL (40-59)
[2022-12-06 12:24] LABS: Free T4 (Free Thyroxine) 0.95 ng/dL (0.89-1.76)
[2022-12-06 13:01] LABS: Erythrocyte Sedimentation Rate 8 mm/hr (0-20)
[2022-12-07 07:06] LABS: PSA Free 1.19 ng/mL; Prostate Specific Antigen 4.9 ng/mL (0.0-4.0)
== END | disposition home or self-care (01) ==
LOC: LAB 10:56
PROVIDERS: ATTEND Internal Medicine
DX: J44.9 Chronic obstructive pulmonary disease, unspecified (principal); D47.3 Essential (hemorrhagic) thrombocythemia; N40.0 Benign prostatic hyperplasia without lower urinary tract symptoms; I25.10 Atherosclerotic heart disease of native coronary artery without angina pectoris; D64.9 Anemia, unspecified
CPT/HCPCS: 36415; 80061; 81001; 84153; 84154; 84439; 84443; 85025; 85652

== ENCOUNTER → 2024-03-27 | Day surgery (SDC) | payer BC, OTHER ==
[2024-03-26 15:11] LABS: Urine Bacteria None Seen /hpf (None Seen)
[2024-03-26 15:28] LABS: Hemoglobin 13.5 g/dL (13.5-17.5)
[2024-03-26 15:31] LABS: Hematocrit 41.3 % (41.0-53.0); Mean Corpuscular Hemoglobin 34.2 pg (28.0-32.0); Mean Corpuscular Hgb Conc. 32.8 g/dL (32.0-36.0); Mean Corpuscular Volume 104.2 fL (80.0-100.0); Platelet Count (auto) 254 10^3/uL (140-450); Red Blood Cells 3.96 10^6/uL (4.5-5.90); Red Cell Distribution Width 17.4 % (11.8-14.3); White Blood Cell 3.8 10^3/uL (4.4-10.8)
[2024-03-26 15:34] LABS: Urine Blood 1+ /uL (Negative); Urine Clarity Clear (Clear); Urine Color Light-Yellow (Yellow); Urine Protein, UAD Negative (Negative); Urine Specific Gravity 1.012 (1.001-1.035); Urine Squamous Epithelial Cell None Seen /hpf (<5); Urine Urobilinogen Normal (Negative); Urine WBC <1 /hpf (0 - 3)
[2024-03-26 15:38] LABS: INR 1.05 (0.9-1.15); Partial Thromboplastin Time 30.6 SEC (24.5-34.5); Prothrombin Time 11.1 sec (9.3-11.8)
[2024-03-26 15:48] LABS: Alanine Aminotransferase 13 U/L (7-40); Albumin 4.3 g/dL (3.2-4.8); Alkaline Phosphatase 55 U/L (46-116); Anion Gap 5 (5-15); Aspartate Aminotransferase 15 U/L (13-40); BUN/Creatinine Ratio 8.9 (10.0-20.0); Blood Urea Nitrogen 10 mg/dL (9-23); Carbon Dioxide 27 mmol/L (20-31); Glucose 82 mg/dL (74-106); Potassium 4.1 mmol/L (3.5-5.1); Sodium 140 mmol/L (136-145)
[2024-03-26 15:49] LABS: Bilirubin, Total 1.1 mg/dL (0.2-1.0); Total Protein 7.9 g/dL (5.7-8.2)
[2024-03-26 15:54] LABS: Chloride 108 mmol/L (98-107)
[2024-03-26 15:58] LABS: Basophils % (manual) 0 (0.0-2.0); Blast Cells 0; Eosinophils % (manual) 0 (0-7); Metamyelocytes % 0; Myelocytes % 0; Promyelocytes % 0; Reactive Lymphocytes 0
[2024-03-26 17:34] LABS: Band Neutrophils % (manual) 1; Lymphocytes % (manual) 34 (10.0-50.0); Monocytes % (manual) 13 (0-12); Platelet Estimate Adequate
[2024-03-26 17:35] LABS: Anisocytosis Slight; Macrocytosis Slight
[~2024-03-27] VITALS: Ht 193 cm; Wt 105.7 kg
[~2024-03-27] MED LIST: ALBUAER3 IN; ASPI-543 PO; BIMA0.01 OP; FINA5TAB4 PO; GLYCOPYRROLATE 0.2 MG/ML 1ML VIAL ONE; HYDR500C3 PO; HYDROmorphone HCL 2 MG/ML VL/or syr IV PRN; KETAMINE 50mg/ML 1ml syringe IV ONE; LIDOCAINE 2% (LOCAL ANESTH.) PF 5ml SDV ONE; MIDAZOLAM HCL 2MG/2ML 2ml VIAL (1mg/ml) ONE; ONDANSETRON HCL 4 MG/2 ML VIAL ONE; PROPOFOL 10 MG/ML 20 ML IV ONE; SILD100T PO; TAMS0.4C39 PO; TIMO0.5S28 OP; [UNRECOGNIZED DRUG - CODE] PO; fentaNYL CITRATE 100 MCG/2 ML VL ONE
--- NOTE | 2024-03-27 09:14 | DVHDS2 ---
New Physician D'charge PN Admitting Diagnosis Admitting Diagnosis Right nephrolithiasis Discharge Diagnosis Same Operations or Procedures Right extracorporeal shockwave lithotripsy Reason(s) For Hospitalization Surgery Treatment Plan Discharge Condition of Discharge Fair Disposition Home Discharge Instructions Diet: Regular Activity: Light activity Activity comment: As tolerated Medications: Given Follow Up Care Follow Up/Referral: Two weeks with [facility] Discharge Statement: "Patient was advised to return to the ER or call 911 if any headaches, dizziness, shortness of breath, chest pain, abdominal pain, bleeding, fevers, or worsening of medical condition. Patient was counseled about treatment plan, medications, possible side effects, patientverbalized understanding. All questions were answered to the best of my ability. This discharge took greater then 30 minutes in planning, reviewing documentation, counseling the patient, and discussing with other team members." TJ CORTEZ MD Mar 27, 2024 09:13
[2024-03-27] MEDS: ceFAZolin 2 GM/D5W100ml 100 ML IV ONE (09:18)
[2024-03-27 09:59] VITALS: PULSE 65; RESP 10; TEMP 98.4; O2SAT 99
[2024-03-27 11:04] VITALS: BP 168/100; PULSE 62; RESP 13; O2SAT 97
== END | disposition home or self-care (01) ==
LOC: SUR 06:36
PROVIDERS: ATTEND Urology
DX: N20.1 Calculus of ureter (principal); Z79.899 Other long term (current) drug therapy; Z85.46 Personal history of malignant neoplasm of prostate; Z90.89 Acquired absence of other organs; Z98.890 Other specified postprocedural states; Z87.891 Personal history of nicotine dependence; Z88.5 Allergy status to narcotic agent
CPT/HCPCS: 36415; 50590; 80053; 81001; 85007; 85027; 85610; 85730; 87086; J2003; J2250; J2405; J2704; J3010

== ENCOUNTER 2024-12-04 09:05 | Inpatient (IN) | payer OTHER ==
[2024-12-04] VITALS (8 sets, daily range): BP systolic 137–158; BP diastolic 80–88; PULSE 88–92; RESP 16–20; TEMP 98.1; O2SAT 84–100
[~2024-12-04] VITALS: Ht 190.5 cm; Wt 103.0 kg
[~2024-12-04 09:05] MED LIST changes: -GLYCOPYRROLATE 0.2 MG/ML 1ML VIAL ONE; -HYDROmorphone HCL 2 MG/ML VL/or syr IV PRN; -KETAMINE 50mg/ML 1ml syringe IV ONE; -LIDOCAINE 2% (LOCAL ANESTH.) PF 5ml SDV ONE; -MIDAZOLAM HCL 2MG/2ML 2ml VIAL (1mg/ml) ONE; -ONDANSETRON HCL 4 MG/2 ML VIAL ONE; -PROPOFOL 10 MG/ML 20 ML IV ONE; -fentaNYL CITRATE 100 MCG/2 ML VL ONE
--- NOTE | 2024-12-04 09:33 | ECG ---
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
--- NOTE | 2024-12-04 10:00 | ED.PDOC ---
SOB-HPI HPI Comments 79 y/o M, presents to the ED for CC of shortness of breath. Patient states, he has been experiencing symptoms of shortness of breath with associated hemoptysis and pain with inspiration onset, Sunday (12/02/24). At this time patient is stating at 88% on 10Lpm on a non-rebreather; patient was transferred to ED bed 09 for further care. Patient denies fever, chest pain, nausea, vomiting, fatigue, weakness, or loss of taste and smell. No other symptoms or modifying factors are present at this time. Chief Complaint: Shortness of Breath Time Seen by MD: 09:30 Reviewed notes: Nurses Notes, Medications, Allergies Information Source: Patient Mode of Arrival: Ambulatory Severity: Moderate Timing: Days Duration: Since onset Context: At Rest PE Risk Factors: None History of: None Prehospital treatment: None Modifying Factors: Nothing Associated Signs and Symptoms: Cough, Hemoptysis Radiation: No Radiation Location: Substernal Past Medical History PAST MEDICAL HISTORY: Denies Surgical History: Denies all surgeries Family History Family History: Unknown Social History Smoker: Non-Smoker Alcohol: Denies ETOH Use Drugs: Denies Drug Use Lives In: Home Constitutional: denies: chills, diaphoresis, fatigue, fever, malaise, sweats, weakness, others EENTM: denies: blurred vision, double vision, ear bleeding, ear discharge, ear drainage, ear pain, ear ringing, eye pain, eye redness, hearing loss, mouth pain, mouth swelling, nasal discharge, nose bleeding, nose congestion, nose pain, photophobia, tearing, throat pain, throat swelling, voice changes, others Respiratory: reports: cough, shortness of breath; denies: hemoptysis, orthopnea, SOB at rest, SOB with excertion, stridor, wheezing, others Cardiovascular: denies: chest pain, dizzy spells, diaphoresis, Dyspnea on exertion, edema, irregular heart beat, left arm pain, lightheadedness, palpita tions, PND, syncope, others Gastrointestinal: reports: diarrhea; denies: abdomen distended, abdominal pain, blood streaked bowels, constipated, dysphagia, difficulty swallowing, hematemesis, melena, nausea, poor appetite, poor fluid intake, rectal bleeding, rectal pain, vomiting, others Genitourinary: denies: burning, dysuria, flank pain, frequency, hematuria, incontinence, penile discharge, penile sore, pain, testicle pain, testicle swelling, urgency, others Neurological: denies: dizziness, fainting, headache, left sided numbness, left sided weakness, numbness, paresthesia, pre-existing deficit, right sided numbness, right sided weakness, seizure, speech problems, tingling, tremors, weakness, others Musculoskeletal: denies: back pain, gout, joint pain, joint swelling, muscle pain, muscle stiffness, neck pain, others Integumetry: denies: bruises, change in color, change in hair/nails, dryness, laceration, lesions, lumps, rash, wounds, others Allergic/Immunocompromised: denies: Difficulty Healing, Frequent Infections, Hives, Itching, others Hematologic/Lymphatic: denies: anemia, blood clots, easy bleeding, easy bruising, swollen glands, others Endocrine: denies: excessive hunger, excessive sweating, excessive thirst, excessive urination, flushing, intolerance to cold, intolerance to heat, unexplained weight gain, unexplained weight loss, others Psychiatric: denies: anxiety, bipolar disorder, depression, hopeless, panic dis order, schizophrenia, sleepless, suicidal, others All Other Systems: Reviewed and Negative Physical Exam General Appearance: Moderate Distress, Normal HEENT: Normal ENT Inspection, Pharynx Normal Neck: Full Range of Motion, Non-Tender, Normal, Normal Inspection Respiratory: Chest Non-Tender, Lungs Clear, No Accessory Muscle Use, No Respiratory Distress, Normal Breath Sounds Cardiovascular: No Edema, No Murmur, No Gallop, Normal Peripheral Pulses, Regular Rate/Rhythm Breast Exam: Deferred Gastrointestinal: No Organomegaly, Non Tender, No Pulsatile Mass, Normal Bowel Sounds, Soft Genitalia: Deferred Pelvic: Deferred Rectal: Deferred Extremities: No calf tenderness, Normal capillary refill, Normal inspection, Normal range of motion, Non-tender, No pedal edema Musculoskeletal : Apperance: Normal Neurologic: Alert, 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 Was a procedure done?: No Differential Dx Differential Diagnosis: Bronchitis, Pneumonia, Sinusitis, Pharyngitis, URI X-Ray, Labs, Meds, VS Vital Signs Date Time Temp Pulse Resp B/P (MAP) Pulse Ox O2 Delivery O2 Flow Rate FiO2 12/04/24 12:26 85 12/04/24 12:00 98.1 91 20 165/108 (127) 88 98.1 12/04/24 11:34 98.1 90 20 149/88 93 100 98.1 12/04/24 10:38 80 148/92 100 12/04/24 10:13 81 12/04/24 10:00 98.4 83 23 163/96 (118) 90 98.4 12/04/24 09:26 83 12/04/24 09:08 98.1 90 24 149/88 72 98.1 Lab Test 12/04/24 11:13 12/04/24 11:06 12/04/24 10:09 Range/Units Blood Gas Specimen Type Arterial Blood Gas Sample Site Right radial Blood Gas Patient Temperature 37.0 Arterial Blood Date Drawn [id number] Arterial Blood pH 7.463 H 7.350-7.450 Arterial Blood Partial Pressure CO2 28.7 L 35.0-48.0 mmHg Arterial Blood Partial Pressure O2 59.3 L 83.0-108.0 mmHg Arterial Blood HCO3 20.1 L 21.0-28.0 mmol/L Arterial Blood Oxygen Saturation 91.2 L 94.0-98.0 % Arterial Blood Base Excess -2.3 L -2.0-3.0 mmol/L Arterial Blood Oxyhemoglobin 89.8 L 94.0-98.0 % Arterial Blood Carboxyhemoglobin 0.9 0.5-1.5 % Arterial Blood Methemoglobin 0.6 0.0-1.5 % Gary Test Yes Blood Gas Total Hemoglobin 14.90 13.5-17.5 g/dL Blood Gas Modality Mask - bipap Blood Gas Spontaneous Rate 19 FiO2 % 100.0 Blood Gas EPAP 6 Blood Gas IPAP 12 Troponin I High Sensitivity 23 18 </=54 ng/L White Blood Count 5.2 4.4-10.8 10^3/uL Red Blood Count 4.66 4.5-5.90 10^6/uL Hemoglobin 14.8 13.5-17.5 g/dL Hematocrit 45.8 41.0-53.0 % Mean Corpuscular Volume 98.1 80.0-100.0 fL Mean Corpuscular Hemoglobin 31.8 28.0-32.0 pg Mean Corpuscular Hemoglobin Concent 32.4 32.0-36.0 g/dL Red Cell Distribution Width 19.2 H 11.8-14.3 % Platelet Count 281 140-450 10^3/uL Mean Platelet Volume 9.5 6.9-10.8 fL Neutrophils (%) (Auto) 70.3 37.0-80.0 % Lymphocytes (%) (Auto) 12.6 10.0-50.0 % Monocytes (%) (Auto) 16.2 H 0.0-12.0 % Eosinophils (%) (Auto) 0.5 0.0-7.0 % Basophils (%) (Auto) 0.4 0.0-2.0 % Neutrophils # (Auto) 3.7 1.6-8.6 10 ^3/uL Lymphocytes # (Auto) 0.7 0.4-5.4 10 ^3/uL Monocytes # (Auto) 0.8 0-1.3 10 ^3/uL Eosinophils # (Auto) 0 0-0.8 10 ^3/uL Basophils # (Auto) 0 0-0.2 10 ^3/uL Nucleated Red Blood Cells 0.2 % Sodium Level 142 136-145 mmol/L Potassium Level 4.6 3.5-5.1 mmol/L Chloride Level 106 98-107 mmol/L Carbon Dioxide Level 25 20-31 mmol/L Anion Gap 11 5-15 Blood Urea Nitrogen 11 9-23 mg/dL Creatinine 1.11 0.700-1.30 mg/dL Glomerular Filtration Rate Calc 68 >90 mL/min BUN/Creatinine Ratio 9.9 L 10.0-20.0 Serum Glucose 96 74-106 mg/dL Lactic Acid Level 1.4 0.4-2.0 mmol/L Calcium Level 9.3 8.7-10.4 mg/dL B-Type Natriuretic Peptide 36.93 0-100 pg/mL Current Medications Medications (Trade) Dose Ordered Sig/Rc Route Start Time Stop Time Status Last Admin Sodium Chloride 1,000 ml @ 1,000 mls/hr Q1H ONCE IV 12/04/24 09:45 12/04/24 10:44 DC 12/04/24 10:[address] [address] Ph: [phone] DIAGNOSTIC IMAGING Diagnostic Imaging Report : [id number] Signed PATIENT: LAURA SAMUEL ACCT: [id number] UNIT: [id number] : 1945 LOC: ER ROOM / BED: / AGE / SEX: 79 / M ADM STATUS: REG ER SERVICE 0 ORDERING PHYSICIAN: DIANA RAMESH MD PROCEDURE(s): CXRP - CHEST PORTABLE REASON: sob ORDER NUMBER(s): [id number], ACCESSION NUMBER(s): [id number] CHEST RADIOGRAPH Indication: sob Technique: Single frontal view of the chest was obtained COMPARISON: CT CHST AB PEL WO CON-NO IV/ORAL on DOS: 11/08/23, CHEST WITHOUT CONTRAST on DOS: 01/05/21, CHEST WITHOUT CONTRAST on DOS: 09/02/20, CHEST WITHOUT CONTRAST on DOS: 01/23/19 FINDINGS: Lines and Tubes: None Lungs: Multifocal left lung airspace disease. Pleura: No effusion. No pneumothorax. Cardiomediastinal contours: Unremarkable Bones: Unremarkable IMPRESSION: Diffuse multifocal left lung airspace disease. ATED BY: JOSE RAMIREZ MD DICTATED DATE/TIME: 12/04/24957 SIGNED BY: JOSE RAMIREZ MD SIGNED DATE/TIME: 12/04/24957 CC: Time of 1ST Reevaluation: 10:00 Reevaluation 1ST: Unchanged Patient Education/Counseling: Diagnosis, Treatment Family Education/Counseling: Diagnosis, Treatment SEPSIS Sepsis Screen Date sepsis recognized/suspect: Dec 04, 2024 Time Sepsis recognized/suspect: 907 Recent Procedure: No On Antibiotic Therapy: No Respiratory Rate >20: Yes Heart Rate >90: Yes Temp<36 C (96.8 F) or >38.3 C: No SBP <90 or MAP <65 mmHG: No New Acute Mental Status Change: No Is the patient on CPAP, BIPAP,: No Physician Orders Chest Portable (12/04/24 09:31) Troponin-I Hs (12/04/24 12:31) Electrocardigram (12/04/24 12:31) Blood Culture (12/04/24 09:41) Cefepime 2gm Extended Infusion (12/04/24 13:00) Vancomycin (12/04/24 13:00) Azithromycin 500mg/ 250ml (Zithromax 50 (12/04/24 13:00) Vital Signs Date Time Temp Pulse Resp B/P (MAP) Pulse Ox O2 Delivery O2 Flow Rate FiO2 12/04/24 12:26 85 12/04/24 12:00 98.1 91 20 165/108 (127) 88 98.1 12/04/24 11:34 98.1 90 20 149/88 93 100 98.1 12/04/24 10:38 80 148/92 100 12/04/24 10:13 81 12/04/24 10:00 98.4 83 23 163/96 (118) 90 98.4 12/04/24 09:26 83 12/04/24 09:08 98.1 90 24 149/88 72 98.1 Laboratory Tests Test 12/04/24 10:09 Lactic Acid Level 1.4 mmol/L (0.4-2.0) White Blood Count 5.2 10^3/uL (4.4-10.8) Medications Medications Dose Ordered Sig/Rc Route Start Time Stop Time Status Last Admin Dose Admin Sodium Chloride 1,000 ml @ 1,000 mls/hr Q1H ONCE IV 12/04/24 09:45 12/04/24 10:44 DC 12/04/24 10:04 Departure 1 Departure Time of Disposition: 12:55 (Patient with a acute respiratory distress and left lung white out concerning for possible sepsis. We will empirically cover patient with antibiotics fluids patient we will place on BiPAP we will admit patient for further workup.) Impression: Primary Impression: Acute respiratory failure Qualified Codes: J96.01 - Acute respiratory failure with hypoxia Additional Impressions: Pneumonia of left lung due to infectious organism Qualified Codes: J18.9 - Pneumonia, unspecified organism Suspected sepsis Disposition: ADMITTED INPATIENT Admit to: [facility] Condition: Guarded Critical Care Note Critical Care Time?: Yes Critical care comment: Acute respiratory failure Authorized and Performed by: Diana Ramesh MD Total critical care time: Approximately 138 minutes Due to a high probability of clinically significant, life threatening deterio ration, the patient required my highest level of preparedness to intervene emergently and I personally spent this critical care time directly and personally managing the patient. This critical care time included obtaining a history; examining the patient; pulse oximetry; ordering and review of studies; arranging urgent treatment with development of a management plan; evaluation of patient's response to treatment; frequent reassessment; and, discussions with other providers. This critical care time was performed to assess and manage the high probability of imminent, life-threatening deterioration that could result in multi-organ failure. It was exclusive of separately billable procedures and treating other patients and teaching time. Please see my other sections and the rest of the note for further information on patient assessment and treatment. Stability Stability form required: No Heart Score Heart Score: Heart Score Response (Comments) Value History Slightly Suspicious 0 EKG N/A 0 Age >65 2 Risk Factors No known risk factors 0 Troponin N/A 0 Total 2 I personally scribed for DIANA RAMESH MD ([email or web address]) on 12/04/24 at 10:00. Electronically submitted by Darcie Slaughter ([email or web address]). I personally scribed for DIANA RAMESH MD ([email or web address]) on 12/04/24 at 11:34. Electronically submitted by Darcie Slaughter ([email or web address]). DIANA RAMESH MD Dec 04, 2024 10:00
[2024-12-04] MEDS: SODIUM CHLORIDE 0.9% 1,000 ML IV ONE (10:04)
[2024-12-04 10:40] LABS: Hematocrit 45.8 % (41.0-53.0); Hemoglobin 14.8 g/dL (13.5-17.5); Mean Corpuscular Hemoglobin 31.8 pg (28.0-32.0); Mean Corpuscular Volume 98.1 fL (80.0-100.0); Nucleated Red Blood Cells % 0.2 %
[2024-12-04 10:49] LABS: Chloride 106 mmol/L (98-107); Potassium 4.6 mmol/L (3.5-5.1); Sodium 142 mmol/L (136-145)
[2024-12-04 10:50] LABS: Anion Gap 11 (5-15); Carbon Dioxide 25 mmol/L (20-31)
[2024-12-04 10:51] LABS: Calcium 9.3 mg/dL (8.7-10.4)
[2024-12-04 10:55] LABS: BUN/Creatinine Ratio 9.9 (10.0-20.0); Blood Urea Nitrogen 11 mg/dL (9-23); Glucose 96 mg/dL (74-106)
[2024-12-04 11:21] LABS: Base Excess -2.3 mmol/L (-2.0-3.0)
--- NOTE | 2024-12-04 12:37 | ECG ---
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
[2024-12-04] MEDS: AZITHROMYCIN 500MG/ 250ML 250 ML IV ONE (13:10)
[2024-12-04] MEDS ORDERED: VANCOMYCIN PER PHARMACY 0 MG IV SCH (13:15)
[2024-12-04] MEDS ORDERED: ACETAMINOPHEN 325 MG TAB PO PRN (13:15)
[2024-12-04] MEDS ORDERED: ONDANSETRON HCL 4 MG/2 ML VIAL IV PRN (13:15)
--- NOTE | 2024-12-04 13:18 | DVHHP2 ---
History of Present Illness Reason for Visit: SOB History of Present Illness Kp Severino is a 79-year-old male with past medical history of tobacco use and right extracorporeal shockwave lithotripsy who presents to the ED with shortness of breath and hemoptysis that started 2 days ago. Patient's is at the bedside. Patient's reports that they were out to dinner on Sunday and Sunday. Patient reports that sitting down makes his breathing better. He states that walking makes it worse. Patient also reports that he takes sildenafil for assistance with sex. Patient also reports that he lives at home with his family. Patient denies any recent trauma or injury, recent sick contacts, recent travel s, recent ingestion of spoiled food, chest pain, fever, chills, lightheadedness, weakness, dizziness, abdominal pain, nausea, vomiting, diarrhea, or urinary symptoms. Past Surgical History: Other (Right extracorporeal shockwave lithotripsy) Family History: None Smoke: Quit ALCOHOL: none Drugs: None Lives: with Family Domestic Violence: Neg Review of Systems Respiratory: Shortness of breath, Hemoptysis Allergies: Coded Allergies: Hydrocortisone (Unverified Allergy, Mild, abd cramps, 03/26/24) Exam Vital Signs Vital Signs Date Time Temp Pulse Resp B/P (MAP) Pulse Ox O2 Delivery O2 Flow Rate FiO2 12/04/24 12:26 85 12/04/24 12:00 98.1 20 165/108 (127) 88 98.1 12/04/24 11:34 100 General Appearance: Alert, Oriented X3, Cooperative, mild distress HEENT: Atraumatic, PERRLA, EOMI, Mucous membr. moist/pink Cardiovascular: Normal S1, Normal S2 Extremities: No edema, Normal pulses Neuro: Normal speech, Strength at 5/5 X4 ext, Normal tone, Sensation intact Psych/Mental Status: Mental status NL, Mood NL Labs/Xrays Labs Test 12/04/24 12:55 12/04/24 11:13 12/04/24 10:09 Range/Units Blood Gas Specimen Type Arterial Blood Gas Sample Site Right radial Blood Gas Patient Temperature 37.0 Arterial Blood Date Drawn [id number] Arterial Blood pH 7.463 H 7.350-7.450 Arterial Blood Partial Pressure CO2 28.7 L 35.0-48.0 mmHg Arterial Blood Partial Pressure O2 59.3 L 83.0-108.0 mmHg Arterial Blood HCO3 20.1 L 21.0-28.0 mmol/L Arterial Blood Oxygen Saturation 91.2 L 94.0-98.0 % Arterial Blood Base Excess -2.3 L -2.0-3.0 mmol/L Arterial Blood Oxyhemoglobin 89.8 L 94.0-98.0 % Arterial Blood Carboxyhemoglobin 0.9 0.5-1.5 % Arterial Blood Methemoglobin 0.6 0.0-1.5 % Gary Test Yes Blood Gas Total Hemoglobin 14.90 13.5-17.5 g/dL Blood Gas Modality Mask - bipap Blood Gas Spontaneous Rate 19 FiO2 % 100.0 Blood Gas EPAP 6 Blood Gas IPAP 12 White Blood Count 5.2 4.4-10.8 10^3/uL Red Blood Count 4.66 4.5-5.90 10^6/uL Hemoglobin 14.8 13.5-17.5 g/dL Hematocrit 45.8 41.0-53.0 % Mean Corpuscular Volume 98.1 80.0-100.0 fL Mean Corpuscular Hemoglobin 31.8 28.0-32.0 pg Mean Corpuscular Hemoglobin Concent 32.4 32.0-36.0 g/dL Red Cell Distribution Width 19.2 H 11.8-14.3 % Platelet Count 281 140-450 10^3/uL Mean Platelet Volume 9.5 6.9-10.8 fL Neutrophils (%) (Auto) 70.3 37.0-80.0 % Lymphocytes (%) (Auto) 12.6 10.0-50.0 % Monocytes (%) (Auto) 16.2 H 0.0-12.0 % Eosinophils (%) (Auto) 0.5 0.0-7.0 % Basophils (%) (Auto) 0.4 0.0-2.0 % Neutrophils # (Auto) 3.7 1.6-8.6 10 ^3/uL Lymphocytes # (Auto) 0.7 0.4-5.4 10 ^3/uL Monocytes # (Auto) 0.8 0-1.3 10 ^3/uL Eosinophils # (Auto) 0 0-0.8 10 ^3/uL Basophils # (Auto) 0 0-0.2 10 ^3/uL Nucleated Red Blood Cells 0.2 % Sodium Level 142 136-145 mmol/L Potassium Level 4.6 3.5-5.1 mmol/L Chloride Level 106 98-107 mmol/L Carbon Dioxide Level 25 20-31 mmol/L Anion Gap 11 5-15 Blood Urea Nitrogen 11 9-23 mg/dL Creatinine 1.11 0.700-1.30 mg/dL Glomerular Filtration Rate Calc 68 >90 mL/min BUN/Creatinine Ratio 9.9 L 10.0-20.0 Serum Glucose 96 74-106 mg/dL Lactic Acid Level 1.4 0.4-2.0 mmol/L Calcium Level 9.3 8.7-10.4 mg/dL B-Type Natriuretic Peptide 36.93 0-100 pg/mL CHEST RADIOGRAPH Indication: sob Technique: Single frontal view of the chest was obtained COMPARISON: CT CHST AB PEL WO CON-NO IV/ORAL on DOS: 11/08/23, CHEST WITHOUT CONTRAST on DOS: 01/05/21, CHEST WITHOUT CONTRAST on DOS: 09/02/20, CHEST WITHOUT CONTRAST on DOS: 01/23/19 FINDINGS: Lines and Tubes: None Lungs: Multifocal left lung airspace disease. Pleura: No effusion. No pneumothorax. Cardiomediastinal contours: Unremarkable Bones: Unremarkable IMPRESSION: Diffuse multifocal left lung airspace disease. SEPSIS Sepsis Screen Date sepsis recognized/suspect: Dec 04, 2024 Time Sepsis recognized/suspect: 907 Recent Procedure: No On Antibiotic Therapy: No Respiratory Rate >20: Yes Heart Rate >90: Yes Temp<36 C (96.8 F) or >38.3 C: No SBP <90 or MAP <65 mmHG: No New Acute Mental Status Change: No Is the patient on CPAP, BIPAP,: No Physician Orders Chest Portable (12/04/24 09:31) Troponin-I Hs (12/04/24 12:31) Electrocardigram (12/04/24 12:31) Blood Culture (12/04/24 09:41) Cefepime 2gm/50ml Ns (Maxipime 2gm/50ml) (12/04/24 13:00) Vancomycin 1gm/250ml Kit (12/04/24 13:00) Azithromycin 500mg/ 250ml (Zithromax 50 (12/04/24 13:00) Vital Signs Date Time Temp Pulse Resp B/P (MAP) Pulse Ox O2 Delivery O2 Flow Rate FiO2 12/04/24 12:26 85 12/04/24 12:00 98.1 91 20 165/108 (127) 88 98.1 12/04/24 11:34 98.1 90 20 149/88 93 100 98.1 12/04/24 10:38 80 148/92 100 12/04/24 10:13 81 12/04/24 10:00 98.4 83 23 163/96 (118) 90 98.4 12/04/24 09:26 83 12/04/24 09:08 98.1 90 24 149/88 72 98.1 Laboratory Tests Test 12/04/24 10:09 Lactic Acid Level 1.4 mmol/L (0.4-2.0) White Blood Count 5.2 10^3/uL (4.4-10.8) Medications Medications Dose Ordered Sig/Rc Route Start Time Stop Time Status Last Admin Dose Admin Sodium Chloride 1,000 ml @ 1,000 mls/hr Q1H ONCE IV 12/04/24 09:45 12/04/24 10:44 DC 12/04/24 10:04 1,000 MLS/HR Assessment/Plan Assessment/Plan Assessment Acute hypoxic respiratory failure requiring mechanical support secondary to pneumonia Hemoptysis Elevated D-dimer rule out PE History of right extracorporeal shockwave lithotripsy History of tobacco use Plan Admit to [facility] BiPAP Duo nebs IV antibiotics-vancomycin + cefepime CT chest Duo nebs D-dimer UA UDS Echo ordered BNP CT angio chest Home medications reconciled DVT prophylaxis-Lovenox PUD prophylaxis-not indicated history of GERD or GI bleed Discussed plan of care with patient and nurse Counseled patient on continuous of cessation of tobacco use [id number] Behavior change smoking greater than 10 minutes about use of other options also gave option of nicotine patch [id number] Preventive counseling healthy eating habits, physical activity, and regular checkups Plan discussed with: Patient, Spouse Date of Service: Dec 04, 2024 Billing Provider: ANTONIO WEBB Common Visit Codes: 81412-[id number] INP/OBS CARE (HIGH) Secondary Visit Codes: 92558-[id number] COUNSELING IND, 65065-CPDCY CHNG SMOKING >10MIN ANTONIO WEBB Dec 04, 2024 13:18
[2024-12-04] MEDS: VANCOMYCIN 1GM/250ML KIT 250 ML IV ONE (13:25)
[2024-12-04] MEDS ORDERED: ERGOCALCIFEROL 50,000 UNIT(1.25MG) CAP PO SCH (13:30)
[2024-12-04] MEDS: CEFEPIME 1GM/50ML 50 ML IV SCH (14:00)
[2024-12-04] MEDS: CEFEPIME 2GM/50ML NS 50 ML IV ONE (14:15)
[2024-12-04 14:28] LABS: Urine Protein, UAD Negative (Negative)
[2024-12-04 14:34] LABS: Cannabinoid Screen, Urine Neg (NEGATIVE)
[2024-12-04 14:37] LABS: Amphetamine Screen, Urine Neg (NEGATIVE); Barbiturate Scree,Urine Neg (NEGATIVE); Benzodiazephine Screen, Urine Neg (NEGATIVE); Cocaine Screen, Urine Neg (NEGATIVE); Opiate Scree,Urine Neg (NEGATIVE); Phencyclidine Screen, Urine Neg (NEGATIVE)
[2024-12-04] MEDS: IPRATROPIUM BROM 0.5 MG/2.5ML INH SOL NEB SCH (14:38)
[2024-12-04] MEDS: ALBUTEROL SULF 2.5 MG/0.5ML(0.5%) NEB SOLN NEB SCH (14:38)
[2024-12-04] MEDS: TAMSULOSIN HYDROCHLORIDE 0.4 MG CAP PO SCH (18:12)
[2024-12-04] MEDS: IOHEXOL 350 MG/ML 100ML IJ ONE (20:40)
--- NOTE | 2024-12-04 21:09 | DVH ---
Procedure: CT CHEST WITHOUT CONTRAST Reason for study/Clinical History: pna. Cough and fever. Comparison Study: XY CHEST PORTABLE on DOS: 12/04/24, CT CHST AB PEL WO CON-NO IV/ORAL on DOS: 11/08/23 , CHEST WITHOUT CONTRAST on DOS: 01/05/21, CHEST WITHOUT CONTRAST on DOS: 09/02/20, CHEST WITHOUT CONT RAST on DOS: 01/23/19 TECHNIQUE: Multidetector CT of the chest was performed from the lung apices to the upper abdomen with out the use of intravenous contract. Axial, coronal and sagittal multiplanar reformats were performed . Radiation Dose Information: CT Dose: CTDI volume is 25.71 mGy. Dose-length product is 949.7 mGy*cm The dose indicators for CT are the volume Computed Tomography (CT) Dose Index (CTDIvol) and the Dose Length Product (DLP), and are measured in units of mGy and mGy-cm, respectively. These indicators are not patient dose, but values generated from the CT scanner acquisition factors. The report includes radiation exposure data for exposures received during this examination. FINDINGS: Lower neck: Unremarkable. Lungs: Suspect some tough tissue within the left mainstem bronchus distally with resulting complete c ollapse of the left lung. Heart/Vascular Structures: Normal heart size. Coronary calcifications. No pericardial effusion. Lymph Nodes: No adenopathy Pleura: No pleural effusion or significant pneumothorax. Musculoskeletal: No acute osseous abnormality. Soft tissues: Normal. Upper abdomen: Limited portions of the upper abdomen are unremarkable. 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 Secretions could have a similar appearance although favored les s likely. Endoscopic correlation recommended.
--- NOTE | 2024-12-04 21:13 | DVH ---
EXAM: CT CT ANGIO CHEST CONTRAST HISTORY: r/o pe TECHNIQUE: CT angiogram was performed. CT scans at this facility use dose modulation, iterative recon struction, and/or weight based dosing when appropriate to reduce radiation dose to as low as reasonab ly achievable. Coronal and sagittal reformations and maximum intensity projection images were created from the transaxial source data by the clinical technologist and workstation, as well as 3-D volume render ed images with MIPs. COMPARISON: XY CHEST PORTABLE on DOS: 12/04/24 FINDINGS: [LOWER NECK]: Unremarkable [LYMPH NODES/MEDIASTINUM]: No abnormal lymph nodes by CT size criteria. Leftward mediastinal shift. [CARDIOVASCULAR]: Normal cardiac size. No pericardial effusion. No aneurysmal dilatation of the great vessels. Coronary artery calcifications. [PULMONARY ARTERIES]: Limited evaluation secondary to contrast timing predominantly in the thoracic a colin. No pulmonary arterial filling defect. Normal caliber of the main pulmonary artery. No evidence of elevated right heart pressures. [UPPER ABDOMEN]: Multiple hypoattenuating subcentimeter lesions throughout the liver, incompletely ch aracterized. No further specific imaging follow-up required, presuming no known or unknown increased risk of cancer above societal norms. Otherwise, if continued clinical concern consider further evalua tion with nonemergent MRI of the liver. [MUSCULOSKELETAL]: No acute fracture or aggressive focal osseous lesion. Multilevel degenerative willams ge of the visualized spine. Small bone island of the left lateral 7th rib. [CHEST WALL]: Unremarkable. [LUNG PARENCHYMA/PLEURAL SPACE]: Complete collapse of the left lung with left-sided endobronchial imp action secondary to mass versus secretions (series 2, image 105). Large area of central hypoattenuati on likely compatible with consolidation measuring 6.3 x 3.2 cm in the central area of collapsed left lung. Consider direct visualization. Subsequent leftward mediastinal shift. Small areas subpleural f ibrosis related to right-sided paravertebral osteophytosis. Inconspicuous area of centrilobular groun d-glass without consolidation in the posterior basilar segment, right lower lobe small area of possib le pneumonitis. IMPRESSION: 1. No pulmonary embolism. 2. Complete collapse of the left lung with left-sided endobronchial impaction secondary to mass versu s secretions. Superimposed suspected consolidation of the central aspect of the collapse left lung. C onsider direct visualization with upper endoscopy. 3. Inconspicuous area of centrilobular ground-glass without consolidation in the posterior basilar se gment, right lower lobe. small area of possible pneumonitis. 4. No measurable lymphadenopathy based on CT size criteria.
[2024-12-05] VITALS (14 sets, daily range): BP systolic 112–144; BP diastolic 60–78; PULSE 70–120; RESP 12–18; TEMP 97.3; O2SAT 92–100
[2024-12-05 04:58] LABS: Hematocrit 41.9 % (41.0-53.0); Hemoglobin 14.0 g/dL (13.5-17.5); Mean Corpuscular Hemoglobin 32.5 pg (28.0-32.0); Mean Corpuscular Volume 97.2 fL (80.0-100.0)
[2024-12-05 05:09] LABS: Alanine Aminotransferase 10 U/L (7-40); Albumin 4.0 g/dL (3.2-4.8); Alkaline Phosphatase 52 U/L (46-116); Anion Gap 12 (5-15); BUN/Creatinine Ratio 7.1 (10.0-20.0); Carbon Dioxide 22 mmol/L (20-31); Chloride 105 mmol/L (98-107); Sodium 139 mmol/L (136-145); Total Protein 7.5 g/dL (5.7-8.2)
[2024-12-05 05:12] LABS: Bilirubin, Total 2.4 mg/dL (0.2-1.0); Blood Urea Nitrogen 8 mg/dL (9-23); Calcium 8.7 mg/dL (8.7-10.4); Glucose 108 mg/dL (74-106); Potassium 3.3 mmol/L (3.5-5.1)
[2024-12-05 06:07] LABS: Total Cells Counted 100.0 (100)
[2024-12-05 06:08] LABS: Ovalocytes FEW
--- NOTE | 2024-12-05 09:59 | ECG ---
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
[2024-12-05] MEDS: ASPirin-EC 81 mg tab PO SCH (11:28)
[2024-12-05] MEDS: VANCOMYCIN 1GM/250ML KIT 250 ML IV SCH (11:28)
[2024-12-05] MEDS: ENOXAPARIN SOD 40 MG/0.4 ML SYRINGE SC SCH (11:29)
[2024-12-05] MEDS: FINASTERIDE 5 MG TAB PO SCH (11:29)
--- NOTE | 2024-12-05 20:02 | DVHSR ---
APPROVED REPORT EXAM: Two-dimensional and M-mode echocardiogram with Doppler and color Doppler. Blood Pressure: 134/75 mmHg INDICATION SOB RISK FACTORS Height: 73, Weight: 227 DIMENSIONS LVDd4.7 (3.8-5.7cm)LA (2D)4.6 (1.9-4.0cm)Aortic Root5.0 (2.0-3.7cm) LVDs2.8 (2.5-4.0cm)LA (MM) (1.9-4.0cm)Aortic Cusp Exc2.1 (1.5-2.0cm) EF (%) 70.0 (55-70%)Rt. Atrium5.3 (1.9-4.0cm)Asc. Aorta cm IVSd1.2 (0.7-1.1cm)RV (D) (1.8-2.4cm) PWd1.2 (0.7-1.1cm) Mitral Valve MitralMitral Stenosis E wave0.35m/sMV Mean GR.mmHg A wave0.79m/sMV Peak GR.mmHg E/A ratio0.42D MVAcm2 DECEL [id number] 1/2 [place] Aortic Valve Aortic ValveAortic Stenosis V11.01m/Guevara Mean GR.3mmHg V21.27m/Guevara Peak GR.6mmHg LVOT Diameter2.2 (1.8-2.4cm)Doppler AVA3.02cm2 Pulmonic Valve V20.91m/s Other Information Technically limited study due to body habitus. Conclusion LV EF IS 70% AND IS NORMAL AORTIC SCLEROSIS NORMAL MV,TV AND PV NO EFFUSION
[2024-12-06] VITALS (19 sets, daily range): BP systolic 126–148; BP diastolic 80–95; PULSE 75–116; RESP 16–20; TEMP 97.9–98.2; O2SAT 92–100
--- NOTE | 2024-12-06 02:57 | DVHPN2 ---
Subjective The patient is seen and examined at bedside. Still complain of shortness for breath and wheezing. Reviewed: Care Plan, H&P, Labs, Medications, Previous Orders, Radiology Changes from previous H/P or p: No Changes Respiratory: Shortness of breath, Hemoptysis Objective Vitals Vital Signs Date Time Temp Pulse Resp B/P (MAP) Pulse Ox O2 Delivery O2 Flow Rate FiO2 12/05/24 01:00 97.9 88 18 144/95 (111) 98 97.9 12/05/24 21:45 Oxymizer 6.0 12/05/24 21:45 N/A Intake/Output Intake and Output 12/05/24 07:00 Intake Total 1100 ml Balance 1100 ml Intake Oral 800 ml IV Total 300 ml General Appearance: Alert, Cooperative, No acute distress HEENT: Atraumatic, PERRLA, EOMI, Mucous membr. moist/pink Neck: Supple Lungs: Clear to auscultation, Normal air movement Cardiovascular: Regular rate, Normal S1, Normal S2, No murmurs, Gallops, Rubs Abdomen: Normal bowel sounds, Soft, No tenderness Neuro: Cranial nerves 3-12 NL Psych/Mental Status: Mental status NL Medications Current Medications Medications Dose Ordered Sig/Rc Route Start Time Stop Time Status Last Admin Dose Admin Vancomycin HCl 0 ml @ 0 mls/hr UD IV 12/04/24 13:15 Cefepime HCl 50 ml @ 12.5 mls/hr Q8HR IV 12/04/24 14:00 12/05/24 21:24 12.5 MLS/HR Albuterol 2.5 mg Q4HR NEB 12/04/24 14:00 12/05/24 21:45 2.5 MG Ipratropium [place] 0.5 mg Q4HR NEB 12/04/24 14:00 12/05/24 21:45 0.5 MG Ondansetron HCl 4 mg Q4HP PRN IV 12/04/24 13:15 Enoxaparin Sodium 40 mg DAILY SC 12/05/24 10:00 12/05/24 11:29 40 MG Acetaminophen 650 mg Q6HP PRN PO 12/04/24 13:15 Aspirin 81 mg DAILY PO 12/05/24 10:00 12/05/24 11:28 81 MG Ergocalciferol 50,000 unit QWEEKLY PO 12/04/24 13:30 Finasteride 5 mg DAILY PO 12/05/24 10:00 12/05/24 11:29 5 MG Hydroxyurea 500 mg DAILY PO 12/05/24 10:00 12/05/24 12:51 500 MG Tamsulosin HCl 0.4 mg QPM PO 12/04/24 18:00 12/05/24 18:36 0.4 MG Vancomycin HCl 250 ml @ 250 mls/hr Q12HR IV 12/05/24 10:00 12/05/24 21:24 250 MLS/HR Laboratory Results Laboratory Tests 12/05/24 04:39 Chemistry Test 12/05/24 04:39 Albumin 4.0 g/dL (3.2-4.8) Calcium Level 8.7 mg/dL (8.7-10.4) Total Protein 7.5 g/dL (5.7-8.2) LFT Test 12/05/24 04:39 Alanine Aminotransferase (ALT) 10 U/L (7-40) Alkaline Phosphatase 52 U/L (46-116) Aspartate Amino Transferase (AST) 18 U/L (13-40) Total Bilirubin 2.4 mg/dL (0.2-1.0) H Urinalysis Test 12/04/24 13:09 Urine Color Light-yellow (Yellow) Urine Clarity Clear (Clear) Urine pH 6.0 (5.0-9.0) Urine Specific [place] 1.013 (1.001-1.035) Urine Protein Negative (Negative) Urine Ketones 2+ (Negative) H Urine Blood 1+ /uL (Negative) H Urine Nitrite Negative (Negative) Urine Bilirubin Negative (Negative) Urine Urobilinogen Normal mg/dL (Negative) Urine Leukocyte Esterase Negative /uL (Negative) Urine RBC 5 /hpf (0 - 3) Urine Microscopic WBC 1 /HPF (0-3) Urine Squamous Epithelial Cells None seen /hpf (<5) Urine Bacteria None seen /hpf (None Seen) Urine Glucose Normal mg/dL (Normal) Microbiology Microbiology Date/Time Source Procedure Growth Status 12/04/24 10:05 Blood Blood Culture - Preliminary NO GROWTH AFTER 24 HOURS OF INCUBATION. Resulted Labs and/or images reviewed: Labs reviewed by me Assessment/Plan Assessment/Plan Acute hypoxic respiratory failure requiring Oxymizer oxygen to keep saturation oxygen above 92% Acute Gram-positive pneumonia Hemoptysis Elevated D-dimer rule out PE History of right extracorporeal shockwave lithotripsy due to kidney stone History of tobacco use Continuing current management. Continuing with IV antibiotic. Continuing with Oxymizer. We will try to wean the patient off. Continuing with nebulizer. We will downgrade the patient to telemetry instead of MIKAYLA Discussed with patient and at bedside in length regarding to plan of care. This medical document was created using an electronic medical record system with [employer] direct computerized dictation system. Although this document has been carefully reviewed, there may still be some phonetic and typographical errors. These areas are purely typographical due to imperfections of the software programs, and do not reflect any compromise in the patient's medical care. Plan discussed with: Patient, Spouse My Orders Orders - MESHA FONG MD Procedure Category Date Status Time Cardiac DIET 12/05/24 Transmitted Diet-2gna,Lofat,Lochol Dinner Transfer Orders XFER 12/05/24 Transmitted 15:49 Date of Service: Dec 05, 2024 Billing Provider: MESHA FONG MD Common Visit Codes: [id number] INP/OBS CARE(HIGH) MESHA FONG MD Dec 06, 2024 02:57
[2024-12-06 06:16] LABS: Hematocrit 42.3 % (41.0-53.0); Hemoglobin 13.9 g/dL (13.5-17.5); Mean Corpuscular Hemoglobin 32.4 pg (28.0-32.0); Mean Corpuscular Volume 98.5 fL (80.0-100.0)
[2024-12-06 06:26] LABS: Anion Gap 12 (5-15); Carbon Dioxide 24 mmol/L (20-31); Chloride 104 mmol/L (98-107); Sodium 140 mmol/L (136-145)
[2024-12-06 06:32] LABS: BUN/Creatinine Ratio 7.3 (10.0-20.0); Glucose 94 mg/dL (74-106)
[2024-12-06 06:36] LABS: Blood Urea Nitrogen 8 mg/dL (9-23); Calcium 8.7 mg/dL (8.7-10.4); Potassium 3.4 mmol/L (3.5-5.1)
[2024-12-06 07:11] LABS: Total Cells Counted 100.0 (100)
--- NOTE | 2024-12-06 13:20 | DVHPN2 ---
Subjective The patient is seen and examined at bedside. Still complain of shortness for breath and wheezing. Reviewed: Care Plan, H&P, Labs, Medications, Previous Orders, Radiology Changes from previous H/P or p: No Changes Respiratory: Shortness of breath, Hemoptysis Objective Vitals Vital Signs Date Time Temp Pulse Resp B/P (MAP) Pulse Ox O2 Delivery O2 Flow Rate FiO2 12/06/24 12:30 98.2 86 19 142/80 (100) 94 98.2 12/06/24 10:19 Oxymizer 5 46 46 Intake/Output Intake and Output 12/06/24 07:00 Intake Total 1900 ml Output Total 600 ml Balance 1300 ml Intake Oral 1300 ml IV Total 600 ml Output Urine Total 600 ml General Appearance: Alert, Cooperative, No acute distress HEENT: Atraumatic, PERRLA, EOMI, Mucous membr. moist/pink Neck: Supple Lungs: Clear to auscultation, Normal air movement Cardiovascular: Regular rate, Normal S1, Normal S2, No murmurs, Gallops, Rubs Abdomen: Normal bowel sounds, Soft, No tenderness Neuro: Cranial nerves 3-12 NL Psych/Mental Status: Mental status NL Medications Current Medications Medications Dose Ordered Sig/Rc Route Start Time Stop Time Status Last Admin Dose Admin Vancomycin HCl 0 ml @ 0 mls/hr UD IV 12/04/24 13:15 Cefepime HCl 50 ml @ 12.5 mls/hr Q8HR IV 12/04/24 14:00 12/06/24 05:33 12.5 MLS/HR Albuterol 2.5 mg Q4HR NEB 12/04/24 14:00 12/06/24 10:19 2.5 MG Ipratropium [place] 0.5 mg Q4HR NEB 12/04/24 14:00 12/06/24 10:19 0.5 MG Ondansetron HCl 4 mg Q4HP PRN IV 12/04/24 13:15 Enoxaparin Sodium 40 mg DAILY SC 12/05/24 10:00 12/06/24 09:18 40 MG Acetaminophen 650 mg Q6HP PRN PO 12/04/24 13:15 Aspirin 81 mg DAILY PO 12/05/24 10:00 12/06/24 09:19 81 MG Ergocalciferol 50,000 unit QWEEKLY PO 12/04/24 13:30 Finasteride 5 mg DAILY PO 12/05/24 10:00 12/06/24 09:18 5 MG Hydroxyurea 500 mg DAILY PO 12/05/24 10:00 12/06/24 11:01 500 MG Tamsulosin HCl 0.4 mg QPM PO 12/04/24 18:00 12/05/24 18:36 0.4 MG Vancomycin HCl 250 ml @ 250 mls/hr Q12HR IV 12/05/24 10:00 12/06/24 09:18 250 MLS/HR Laboratory Results Laboratory Tests 12/06/24 05:19 Chemistry Test 12/06/24 05:19 Calcium Level 8.7 mg/dL (8.7-10.4) Urinalysis Test 12/04/24 13:09 Urine Color Light-yellow (Yellow) Urine Clarity Clear (Clear) Urine pH 6.0 (5.0-9.0) Urine Specific [place] 1.013 (1.001-1.035) Urine Protein Negative (Negative) Urine Ketones 2+ (Negative) H Urine Blood 1+ /uL (Negative) H Urine Nitrite Negative (Negative) Urine Bilirubin Negative (Negative) Urine Urobilinogen Normal mg/dL (Negative) Urine Leukocyte Esterase Negative /uL (Negative) Urine RBC 5 /hpf (0 - 3) Urine Microscopic WBC 1 /HPF (0-3) Urine Squamous Epithelial Cells None seen /hpf (<5) Urine Bacteria None seen /hpf (None Seen) Urine Glucose Normal mg/dL (Normal) Microbiology Microbiology Date/Time Source Procedure Growth Status 12/04/24 10:05 Blood Blood Culture - Preliminary NO GROWTH AFTER 48 HOURS OF INCUBATION. Resulted Labs and/or images reviewed: Labs reviewed by me Assessment/Plan Assessment/Plan Acute hypoxic respiratory failure requiring Oxymizer oxygen to keep saturation oxygen above 92% Acute Gram-positive pneumonia Hemoptysis Elevated D-dimer rule out PE History of right extracorporeal shockwave lithotripsy due to kidney stone History of tobacco use Continuing current management. Continuing with IV antibiotic. Continuing with Oxymizer. We will try to wean the patient off. Continuing with nebulizer. Discussed with patient and at bedside in length regarding to plan of care. This medical document was created using an electronic medical record system with [employer] direct computerized dictation system. Although this document has been carefully reviewed, there may still be some phonetic and typographical errors. These areas are purely typographical due to imperfections of the software programs, and do not reflect any compromise in the patient's medical care. Plan discussed with: Patient My Orders Orders - MESHA FONG MD Procedure Category Date Status Time Cardiac DIET 12/05/24 Transmitted Diet-2gna,Lofat,Lochol Dinner Transfer Orders XFER 12/05/24 Transmitted 15:49 Complete Blood Count LAB 12/07/24 Verified 05:00 Complete Blood Count LAB 12/08/24 Verified 05:00 Complete Blood Count LAB 12/09/24 Verified 05:00 Complete Blood Count LAB 12/10/24 Verified 05:00 Basic Metabolic Panel LAB 12/07/24 Verified 05:00 Basic Metabolic Panel LAB 12/08/24 Verified 05:00 Basic Metabolic Panel LAB 12/09/24 Verified 05:00 Basic Metabolic Panel LAB 12/10/24 Verified 05:00 Date of Service: Dec 06, 2024 Billing Provider: MESHA FONG MD Common Visit Codes: [id number] INP/OBS CARE(HIGH) MESHA FONG MD Dec 06, 2024 13:20
[2024-12-06] MEDS ORDERED: TIMOLOL MAL 0.5% OPTH(EYE) SOL 5ML EACHEYE SCH (21:00)
[2024-12-06] MEDS: LUMIGAN 0.01% OPHTHALMIC SOLUTION OP SCH (22:19)
[2024-12-06] MEDS ORDERED: PATIENTS OWN MEDICATION OP SCH (23:00)
[2024-12-07] VITALS (20 sets, daily range): BP systolic 102–139; BP diastolic 61–93; PULSE 74–114; RESP 16–21; TEMP 97.8–99; O2SAT 93–100
[2024-12-07 06:24] LABS: Hematocrit 41.9 % (41.0-53.0); Hemoglobin 13.7 g/dL (13.5-17.5); Mean Corpuscular Hemoglobin 32.0 pg (28.0-32.0); Mean Corpuscular Volume 97.8 fL (80.0-100.0)
[2024-12-07 06:37] LABS: Anion Gap 11 (5-15); Carbon Dioxide 23 mmol/L (20-31); Chloride 105 mmol/L (98-107); Sodium 139 mmol/L (136-145)
[2024-12-07 06:38] LABS: Calcium 8.7 mg/dL (8.7-10.4)
[2024-12-07 06:43] LABS: BUN/Creatinine Ratio 6.5 (10.0-20.0); Glucose 103 mg/dL (74-106)
[2024-12-07 07:03] LABS: Blood Urea Nitrogen 8 mg/dL (9-23); Potassium 3.4 mmol/L (3.5-5.1)
[2024-12-07 08:04] LABS: Total Cells Counted 100.0 (100)
[2024-12-07] MEDS: TIMOLOL MAL 0.5% OPTH(EYE) SOL 5ML EACHEYE SCH (09:24)
--- NOTE | 2024-12-07 13:25 | DVHINCON2 ---
Date Seen: Dec 07, [address] Borden Reason for Consultation Afib, new onset History of Present Illness 79-year-old male was admitted for acute respiratory failure requiring oral intubation. Cardiology was consulted after the patient developed transient atrial fibrillation at a controlled rate. A 12 lead ECG at that time confirmed atrial fibrillation. On assessment today, he is alert and oriented and denies headaches, dizziness, chest pain, palpitations, shortness of breath, or other acute symptoms. Telemetry monitoring demonstrates sinus rhythm. Echocardiogram revealed preserved left ventricular systolic function with an ejection fraction of 70% and evidence of aortic sclerosis. Past medical history is notable for ex-tobacco use and right lithotripsy. Past Medical History As stated in HPI Past Surgical History As stated in HPI Family History: Patient reports no known family medical history. Family History Reviewed, non-contributory to the management of this case. Social History The patient lives at home, denies smoking, alcohol or illicit drugs abuse. Allergies: Coded Allergies: Hydrocortisone (Unverified Allergy, Mild, abd cramps, 03/26/24) Home Meds Reported Medications Albuterol Sulfate (VENTOLIN MDI) Unknown Strength Ih, IN, INH 03/26/24 Sildenafil Citrate (Viagra) 100 Mg Tab, 1 TAB PO DAILYP, #6 TAB 11 Refills 03/26/24 Finasteride (Finasteride) 5 Mg Tab, 5 MG PO DAILY for 30 Days, MG 03/26/24 Bimatoprost (Lumigan) 0.01 % Ladi, 0.01 % OP, ML 03/26/24 Timolol Maleate (Timolol Maleate Ophthalmi) 0.5 % Ladi, 0.5 % OP, ML 03/26/24 Aspirin (Aspir-Low) 81 Mg Tab, 81 MG PO DAILY for 30 Days, MG 03/26/24 Ergocalciferol (Drisdol) 50,000 Unit Cap, 18178 UNIT PO, CAP 03/26/24 Tamsulosin Hcl (Tamsulosin Hcl) 0.4 Mg Cap, 0.4 MG PO QPM for 30 Days, MG 03/26/24 Hydroxyurea (Hydroxyurea) 500 Mg Cap, 500 MG PO DAILY, MG 03/26/24 Current Medications Current Medications Medications (Trade) Dose Ordered Sig/Rc Route PRN Reason Start Time Stop Time Status Last Admin Timolol Maleate (Timoptic 0.5%) 1 drop BID EACHEYE 12/06/24 21:00 12/06/24 21:30 DC Patient Own Medication 1 Q24H OP 12/06/24 23:00 12/06/24 22:19 Patient Own Medication 1 HS OP 12/06/24 23:00 12/06/24 21:43 DC Timolol Maleate (Timoptic 0.5%) 1 drop BIDBRS EACHEYE 12/07/24 08:00 12/07/24 09:24 Review of Systems Constitutional: No symptom reported Ears, Nose, & Throat: No symptom reported Eyes: No symptom reported Neurological: No symptoms reported Pulmonary/Respiratory: No symptom reported Cardiovascular: Atrial fibrillation Gastrointestinal: No symptom reported Genitourinary: No symptom reported Musculoskeletal: No symptom reported Skin: No symptom reported Psychiatric: No symptom reported Endocrine: No symptom reported Hemotologic/Lymphatic: No symptom reported Vital Signs Vital Signs Date Time Temp Pulse Resp B/P (MAP) Pulse Ox O2 Delivery O2 Flow Rate FiO2 12/07/24 11:30 82 16 102/61 100 2.0 12/07/24 10:00 Nasal Cannula* 28 12/07/24 09:00 98.3 98.3 Physical Exam INITIAL VITAL SIGNS: Reviewed by me GENERAL: Alert and interactive. No acute distress. HEAD: Head is normocephalic and atraumatic. EYES: EOMI, PERRL. No scleral icterus. No conjunctival injection. ENT: Moist mucous membranes. NECK: Supple, No masses, Full range of motion. RESPIRATORY: No tachypnea. Clear breath sounds bilaterally. No wheezing, rales, rhonchi. CV: Regular rate and rhythm. No murmurs, no edema GI/: Active bowel sounds, soft, nondistended, nontender. No guarding. No rebound. No masses. No CVA tenderness. INTEGUMENTARY: Warm and dry. No obvious rashes. NEUROLOGIC: Alert and oriented. Face is symmetric. Speech is normal. Moves all extremities equally. Labs/Diagnostic Data Labs Test 12/07/24 05:52 12/06/24 21:07 12/05/24 04:39 12/04/24 13:43 Range/Units White Blood Count 5.1 4.4-10.8 10^3/uL Red Blood Count 4.28 L 4.5-5.90 10^6/uL Hemoglobin 13.7 13.5-17.5 g/dL Hematocrit 41.9 41.0-53.0 % Mean Corpuscular Volume 97.8 80.0-100.0 fL Mean Corpuscular Hemoglobin 32.0 28.0-32.0 pg Mean Corpuscular Hemoglobin Concent 32.7 32.0-36.0 g/dL Red Cell Distribution Width 18.9 H 11.8-14.3 % Platelet Count 245 140-450 10^3/uL Mean Platelet Volume 9.5 6.9-10.8 fL Neutrophils (%) (Auto) 37.0-80.0 % Lymphocytes (%) (Auto) 10.0-50.0 % Monocytes (%) (Auto) 0.0-12.0 % Basophils (%) (Auto) 0.0-2.0 % Neutrophils # (Auto) 1.6-8.6 10 ^3/uL Lymphocytes # (Auto) 0.4-5.4 10 ^3/uL Monocytes # (Auto) 0-1.3 10 ^3/uL Differential Total Cells Counted 100.0 100 Neutrophils % (Manual) 65 37.0-80.0 Band Neutrophils % (Manual) 4 Lymphocytes % (Manual) 16 10.0-50.0 Monocytes % (Manual) 15 H 0-12 Eosinophils % (Manual) 0 0-7 Basophils % (Manual) 0 0.0-2.0 Metamyelocytes % (manual) 0 Myelocytes % (Manual) 0 Promyelocytes % (Manual) 0 Blast Cells % (Manual) 0 Reactive Lymphocytes 0 Platelet Estimate Adequate Sodium Level 139 136-145 mmol/L Potassium Level 3.4 L 3.5-5.1 mmol/L Chloride Level 105 98-107 mmol/L Carbon Dioxide Level 23 20-31 mmol/L Anion Gap 11 5-15 Blood Urea Nitrogen 8 L 9-23 mg/dL Creatinine 1.23 0.700-1.30 mg/dL Glomerular Filtration Rate Calc 60 >90 mL/min BUN/Creatinine Ratio 6.5 L 10.0-20.0 Serum Glucose 103 74-106 mg/dL Calcium Level 8.7 8.7-10.4 mg/dL Vancomycin Level Trough 10.0 5-10 ug/mL Ovalocytes Few Total Bilirubin 2.4 H 0.2-1.0 mg/dL Aspartate Amino Transferase (AST) 18 13-40 U/L Alanine Aminotransferase (ALT) 10 7-40 U/L Alkaline Phosphatase 52 46-116 U/L Total Protein 7.5 5.7-8.2 g/dL Albumin 4.0 3.2-4.8 g/dL D-Dimer, Quantitative 0.58 H 0.0-0.49 mg/L FEU B-Type Natriuretic Peptide 62.75 0-100 pg/mL Test 12/04/24 13:09 12/04/24 12:55 12/04/24 11:13 12/04/24 10:09 Range/Units Urine Color Light-yellow Yellow Urine Clarity Clear Clear Urine pH 6.0 5.0-9.0 Urine Specific [place] 1.013 1.001-1.035 Urine Protein Negative Negative Urine Ketones 2+ H Negative Urine Blood 1+ H Negative /uL Urine Nitrite Negative Negative Urine Bilirubin Negative Negative Urine Urobilinogen Normal Negative mg/dL Urine Leukocyte Esterase Negative Negative /uL Urine RBC 5 0 - 3 /hpf Urine Microscopic WBC 1 0-3 /HPF Urine Squamous Epithelial Cells None seen <5 /hpf Urine Bacteria None seen None Seen /hpf Urine Glucose Normal Normal mg/dL Urine Opiates Screen Neg NEGATIVE Urine Fentanyl Screen Neg NEGATIVE Urine Barbiturates Screen Neg NEGATIVE Urine Phencyclidine Screen Neg NEGATIVE Urine Amphetamines Screen Neg NEGATIVE Urine Benzodiazepines Screen Neg NEGATIVE Urine Cocaine Screen Neg NEGATIVE Urine Cannabinoids Screen Neg NEGATIVE Troponin I High Sensitivity 23 </=54 ng/L Blood Gas Specimen Type Arterial Blood Gas Sample Site Right radial Blood Gas Patient Temperature 37.0 Arterial Blood Date Drawn [id number] Arterial Blood pH 7.463 H 7.350-7.450 Arterial Blood Partial Pressure CO2 28.7 L 35.0-48.0 mmHg Arterial Blood Partial Pressure O2 59.3 L 83.0-108.0 mmHg Arterial Blood HCO3 20.1 L 21.0-28.0 mmol/L Arterial Blood Oxygen Saturation 91.2 L 94.0-98.0 % Arterial Blood Base Excess -2.3 L -2.0-3.0 mmol/L Arterial Blood Oxyhemoglobin 89.8 L 94.0-98.0 % Arterial Blood Carboxyhemoglobin 0.9 0.5-1.5 % Arterial Blood Methemoglobin 0.6 0.0-1.5 % Gary Test Yes Blood Gas Total Hemoglobin 14.90 13.5-17.5 g/dL Blood Gas Modality Mask - bipap Blood Gas Spontaneous Rate 19 FiO2 % 100.0 Blood Gas EPAP 6 Blood Gas IPAP 12 Eosinophils (%) (Auto) 0.5 0.0-7.0 % Eosinophils # (Auto) 0 0-0.8 10 ^3/uL Basophils # (Auto) 0 0-0.2 10 ^3/uL Nucleated Red Blood Cells 0.2 % Lactic Acid Level 1.4 0.4-2.0 mmol/L Microbiology Date/Time Source Procedure Growth Status 12/04/24 10:05 Blood Blood Culture - Preliminary NO GROWTH AFTER 72 HOURS OF INCUBATION. Resulted PROCEDURE(s): CTACH - CT ANGIO CHEST CONTRAST REASON: r/o pe ORDER NUMBER(s): [id number], ACCESSION NUMBER(s): [id number] EXAM: CT CT ANGIO CHEST CONTRAST HISTORY: r/o pe TECHNIQUE: CT angiogram was performed. CT scans at this facility use dose mo dulation, iterative reconstruction, and/or weight based dosing when appropriate to reduce radiation dose to as low as reasonably achievable. Coronal and sagittal reformations and maximum intensity projection images were created from the transaxial source data by the pathology laboratory technologist and workstation, as well as 3- D volume rendered images with MIPs. COMPARISON: XY CHEST PORTABLE on DOS: 12/04/24 FINDINGS: [LOWER NECK]: Unremarkable [LYMPH NODES/MEDIASTINUM]: No abnormal lymph nodes by CT size criteria. Leftward mediastinal shift. [CARDIOVASCULAR]: Normal cardiac size. No pericardial effusion. No aneurysmal dilatation of the great vessels. Coronary artery calcifications. [PULMONARY ARTERIES]: Limited evaluation secondary to contrast timing predominantly in the thoracic aorta. No pulmonary arterial filling defect. Normal caliber of the main pulmonary artery. No evidence of elevated right heart pressures. [UPPER ABDOMEN]: Multiple hypoattenuating subcentimeter lesions throughout the liver, incompletely characterized. No further specific imaging follow-up required, presuming no known or unknown increased risk of cancer above societal norms. Otherwise, if continued clinical concern consider further evaluation with nonemergent MRI of the liver. [MUSCULOSKELETAL]: No acute fracture or aggressive focal osseous lesion. Multilevel degenerative change of the visualized spine. Small bone island of the left lateral 7th rib. [CHEST WALL]: Unremarkable. [LUNG PARENCHYMA/PLEURAL SPACE]: Complete collapse of the left lung with left- sided endobronchial impaction secondary to mass versus secretions (series 2, image 105). Large area of central hypoattenuation likely compatible with consolidation measuring 6.3 x 3.2 cm in the central area of collapsed left lung. Consider direct visualization. Subsequent leftward mediastinal shift. Small areas subpleural fibrosis related to right-sided paravertebral osteophytosis. Inconspicuous area of centrilobular ground-glass without consolidation in the posterior basilar segment, right lower lobe small area of possible pneumonitis. IMPRESSION: 1. No pulmonary embolism. 2. Complete collapse of the left lung with left-sided endobronchial impaction secondary to mass versus secretions. Superimposed suspected consolidation of the central aspect of the collapse left lung. Consider direct visualization with upper endoscopy. 3. Inconspicuous area of centrilobular ground-glass without consolidation in the posterior basilar segment, right lower lobe. small area of possible pneumonitis. 4. No measurable lymphadenopathy based on CT size criteria. Assessment Transient AFib, now in sinus rhythm ( CHADS-VASc score 2, -BLED score 1) Acute hypoxic respiratory failure requiring Oxymizer oxygen to keep saturation oxygen above 92% Acute Gram-positive pneumonia Hemoptysis Elevated D-dimer rule out PE History of right extracorporeal shockwave lithotripsy due to kidney stone History of tobacco use Plan/Recommendation (Dr. Alejandre ): * Started on amiodarone 200 mg p.o. daily for rhythm control * Transition to Eliquis 2.5 mg b.i.d. on discharge * Continue telemetry monitoring for arrhythmia * Monitor electrolytes and replete as needed * Cardiology to follow for rhythm stability, anticoagulation management and response to therapy This medical document was created using an electronic medical record system with voice recognition software and computerized dictation system. Although this document has been carefully reviewed, there might still be some phonetic and typ ographical errors. Occasional wrong-word or ``sound-alike substitutions may have occurred due to the inherent limitations of voice recognition software. These areas are purely typographical due to imperfections of the software programs and do not reflect any compromise in the patient's medical care. Please read the chart carefully and recognize, using context, where these subs titutions have occurred. Plan discussed with: Patient Plan discussed with: Patient NYHA Physical activity limitations: NA Date of Service: Dec 07, 2024 Billing Provider: AISSATOU ALEJANDRE MD Cardiology Common Codes: NOT BILLABLE Cardiology Consultation Codes: [id number] CONSULT <45MIN KAUSHAL [employer] UNDERWRITER Dec 07, 2024 13:25
--- NOTE | 2024-12-07 14:27 | DVHPN2 ---
Subjective The patient is seen and examined at bedside. Still complain of shortness for breath and wheezing. Reviewed: Care Plan, H&P, Labs, Medications, Previous Orders, Radiology Changes from previous H/P or p: No Changes Respiratory: Shortness of breath, Hemoptysis Objective Vitals Vital Signs Date Time Temp Pulse Resp B/P (MAP) Pulse Ox O2 Delivery O2 Flow Rate FiO2 12/07/24 14:04 87 18 96 12/07/24 11:30 102/61 2.0 12/07/24 10:00 Nasal Cannula* 12/07/24 09:00 98.3 98.3 Intake/Output Intake and Output 12/07/24 07:00 Intake Total 1690 ml Output Total 1400 ml Balance 290 ml Intake Oral 1390 ml IV Total 300 ml Output Urine Total 1400 ml # Voids 5 General Appearance: Alert, Cooperative, No acute distress HEENT: Atraumatic, PERRLA, EOMI, Mucous membr. moist/pink Neck: Supple Lungs: Clear to auscultation, Normal air movement Cardiovascular: Regular rate, Normal S1, Normal S2, No murmurs, Gallops, Rubs Abdomen: Normal bowel sounds, Soft, No tenderness Neuro: Cranial nerves 3-12 NL Psych/Mental Status: Mental status NL Medications Current Medications Medications Dose Ordered Sig/Rc Route Start Time Stop Time Status Last Admin Dose Admin Vancomycin HCl 0 ml @ 0 mls/hr UD IV 12/04/24 13:15 Cefepime HCl 50 ml @ 12.5 mls/hr Q8HR IV 12/04/24 14:00 12/07/24 06:21 12.5 MLS/HR Albuterol 2.5 mg Q4HR NEB 12/04/24 14:00 12/07/24 14:04 2.5 MG Ipratropium [place] 0.5 mg Q4HR NEB 12/04/24 14:00 12/07/24 14:04 0.5 MG Ondansetron HCl 4 mg Q4HP PRN IV 12/04/24 13:15 Enoxaparin Sodium 40 mg DAILY SC 12/05/24 10:00 12/07/24 09:24 40 MG Acetaminophen 650 mg Q6HP PRN PO 12/04/24 13:15 Aspirin 81 mg DAILY PO 12/05/24 10:00 12/07/24 09:24 81 MG Ergocalciferol 50,000 unit QWEEKLY PO 12/04/24 13:30 Finasteride 5 mg DAILY PO 12/05/24 10:00 12/07/24 09:24 5 MG Hydroxyurea 500 mg DAILY PO 12/05/24 10:00 12/07/24 09:23 500 MG Tamsulosin HCl 0.4 mg QPM PO 12/04/24 18:00 12/06/24 17:21 0.4 MG Vancomycin HCl 250 ml @ 250 mls/hr Q12HR IV 12/05/24 10:00 12/07/24 09:24 250 MLS/HR Patient Own Medication 1 Q24H OP 12/06/24 23:00 12/06/24 22:19 1 Timolol Maleate 1 drop BIDBRS EACHEYE 12/07/24 08:00 12/07/24 09:24 1 DROP Amiodarone HCl 200 mg DAILY PO 12/08/24 10:00 UNV Laboratory Results Laboratory Tests 12/07/24 05:52 Chemistry Test 12/07/24 05:52 Calcium Level 8.7 mg/dL (8.7-10.4) Urinalysis Test 12/04/24 13:09 Urine Color Light-yellow (Yellow) Urine Clarity Clear (Clear) Urine pH 6.0 (5.0-9.0) Urine Specific [place] 1.013 (1.001-1.035) Urine Protein Negative (Negative) Urine Ketones 2+ (Negative) H Urine Blood 1+ /uL (Negative) H Urine Nitrite Negative (Negative) Urine Bilirubin Negative (Negative) Urine Urobilinogen Normal mg/dL (Negative) Urine Leukocyte Esterase Negative /uL (Negative) Urine RBC 5 /hpf (0 - 3) Urine Microscopic WBC 1 /HPF (0-3) Urine Squamous Epithelial Cells None seen /hpf (<5) Urine Bacteria None seen /hpf (None Seen) Urine Glucose Normal mg/dL (Normal) Microbiology Microbiology Date/Time Source Procedure Growth Status 12/04/24 10:05 Blood Blood Culture - Preliminary NO GROWTH AFTER 72 HOURS OF INCUBATION. Resulted Labs and/or images reviewed: Labs reviewed by me, Image(s) reviewed by me Assessment/Plan Assessment/Plan Acute hypoxic respiratory failure requiring Oxymizer oxygen to keep saturation oxygen above 92% Acute Gram-positive pneumonia Hemoptysis Complete collapse of the left lung with left-sided endobronchial impaction secondary to mass versus secretions. Superimposed suspected consolidation of the central aspect of the collapse left lung. Elevated D-dimer rule out PE History of right extracorporeal shockwave lithotripsy due to kidney stone History of tobacco use Continuing current management. Continuing with IV antibiotic. Continuing with Oxymizer. We will try to wean the patient off. Continuing with nebulizer. Pulmonology consult for bronchoscopy Discussed with patient and at bedside in length regarding to plan of care. This medical document was created using an electronic medical record system with [email or web address] dictation system. Although this document has been carefully reviewed, there may still be some phonetic and typographical errors. These areas are purely typographical due to imperfections of the software programs, and do not reflect any compromise in the patient's medical care. Plan discussed with: Patient, Spouse My Orders Orders - MESHA FONG MD Procedure Category Date Status Time Patients Own PHA 12/06/24 In Process Medication 23:00 Electrocardigram EKG 12/07/24 Logged 09:59 Electrocardigram EKG 12/07/24 Logged 09:59 * Cardiology Consult CONS 12/07/24 Transmitted 10:14 Date of Service: Dec 07, 2024 Billing Provider: MESHA FONG MD Common Visit Codes: [id number] INP/OBS CARE(HIGH) MESHA FONG MD Dec 07, 2024 14:27
[2024-12-07] MEDS: AMIODARONE HCL 200 MG TAB PO ONE (15:00)
[2024-12-07] MEDS: POTASSIUM CHL 20 Meq TABLET PO ONE (15:01)
[2024-12-07] MEDS: MAGNESIUM SULFATE 1GM/100ML 100 ML IV ONE (15:14)
[2024-12-07] MEDS: VANCOMYCIN 1.25GM/250ML 250 ML IV SCH (21:15)
--- NOTE | 2024-12-07 22:56 | DVHINCON2 ---
Date Seen: Dec 06, [address] Borden Reason for Consultation Acute hypoxic respiratory failure and pneumonia. History of Present Illness A 79-year-old male with past medical history of nephrolithiasis (right ESWL) and hx of nicotine dependence who presented to the ED on 12/04/24 with c/o shortness of breath and hemoptysis that started 2 days ago. Patient's reported they were out to dinner on Sunday and Sunday. Patient reported that sitting down makes his breathing better and ambulation makes it worse. Patient also reports that he takes sildenafil for erectile dysfunction. Patient denies any recent trauma or injury, recent sick contacts, chest pain, fever, chills, N/V/D or other acute complaints. Patient was admitted for further care. Pulmonary consultation is requested for evaluation and management of acute hypoxic respiratory failure and pneumonia. Review of Systems: 14-point review of systems negative unless otherwise noted above. Past Medical History: Nephrolithiasis Past Surgical History: (Right extracorporeal shockwave lithotripsy) Medications: Reviewed. Allergies: Hydrocortisone. Family History: No family history of premature CAD. No family history of lung disorders. Social History: Former smoker. No alcohol or illicit drug use. Family History: Patient reports no known family medical history. Allergies: Coded Allergies: Hydrocortisone (Unverified Allergy, Mild, abd cramps, 03/26/24) Home Meds Reported Medications Albuterol Sulfate (VENTOLIN MDI) Unknown Strength Ih, IN, INH 03/26/24 Sildenafil Citrate (Viagra) 100 Mg Tab, 1 TAB PO DAILYP, #6 TAB 11 Refills 03/26/24 Finasteride (Finasteride) 5 Mg Tab, 5 MG PO DAILY for 30 Days, MG 03/26/24 Bimatoprost (Lumigan) 0.01 % Ladi, 0.01 % OP, ML 03/26/24 Timolol Maleate (Timolol Maleate Ophthalmi) 0.5 % Ladi, 0.5 % OP, ML 03/26/24 Aspirin (Aspir-Low) 81 Mg Tab, 81 MG PO DAILY for 30 Days, MG 03/26/24 Ergocalciferol (Drisdol) 50,000 Unit Cap, 98929 UNIT PO, CAP 03/26/24 Tamsulosin Hcl (Tamsulosin Hcl) 0.4 Mg Cap, 0.4 MG PO QPM for 30 Days, MG 03/26/24 Hydroxyurea (Hydroxyurea) 500 Mg Cap, 500 MG PO DAILY, MG 03/26/24 Current Medications Current Medications Medications (Trade) Dose Ordered Sig/Rc Route PRN Reason Start Time Stop Time Status Last Admin Patient Own Medication 1 Q24H OP 12/06/24 23:00 12/07/24 22:46 Patient Own Medication 1 HS OP 12/06/24 23:00 12/06/24 21:43 DC Timolol Maleate (Timoptic 0.5%) 1 drop BIDBRS EACHEYE 12/07/24 08:00 12/07/24 18:27 Amiodarone HCl (Cordarone Tablet) 200 mg DAILY PO 12/08/24 10:00 Polyethylene Glycol (Miralax 17GM Powder) 17 gm DAILYPRN PRN PO FOR CONSTIPATION 12/07/24 16:00 Docusate Sodium (Colace Capsule) 100 mg BIDPRN PRN PO FOR CONSTIPATION 12/07/24 16:00 Vancomycin HCl 250 ml @ 200 mls/hr Q12HR IV 12/07/24 22:00 12/07/24 21:15 Vital Signs Vital Signs Date Time Temp Pulse Resp B/P (MAP) Pulse Ox O2 Delivery O2 Flow Rate FiO2 12/07/24 22:45 83 18 100 12/07/24 22:37 Nasal Cannula* 2 28 12/07/24 21:00 98.3 139/83 (101) 98.3 Physical Exam Gen.: Patient lying in bed in no apparent distress. On supplemental oxygen. Head: Normocephalic, atraumatic. Eyes: EOMI/PERRLA. Ears: Normal hearing. Normal anatomy. Neck/trachea: Trachea midline, supple. Nose: Normal external anatomy. Mouth: Moist mucous membranes. Chest: Decreased air entry bilaterally. No wheezing or rhonchi. Cardiovascular: Positive S1, positive S2. Regular rate and rhythm. Abdomen: Positive bowel sounds in all 4 quadrants. Soft, non-tender, non- distended. : Deferred. Rectal: Deferred. Skin: Warm, dry. Intact. Extremities: 2+ radial pulses bilaterally. No lower extremity edema. Neuro: Awake, alert, oriented x3. No gross motor or sensory deficits. Cranial nerves II through XII intact. Gait not assessed. Labs/Diagnostic Data Labs Test 12/07/24 05:52 12/06/24 21:07 12/05/24 04:39 12/04/24 13:43 Range/Units White Blood Count 5.1 4.4-10.8 10^3/uL Red Blood Count 4.28 L 4.5-5.90 10^6/uL Hemoglobin 13.7 13.5-17.5 g/dL Hematocrit 41.9 41.0-53.0 % Mean Corpuscular Volume 97.8 80.0-100.0 fL Mean Corpuscular Hemoglobin 32.0 28.0-32.0 pg Mean Corpuscular Hemoglobin Concent 32.7 32.0-36.0 g/dL Red Cell Distribution Width 18.9 H 11.8-14.3 % Platelet Count 245 140-450 10^3/uL Mean Platelet Volume 9.5 6.9-10.8 fL Neutrophils (%) (Auto) 37.0-80.0 % Lymphocytes (%) (Auto) 10.0-50.0 % Monocytes (%) (Auto) 0.0-12.0 % Basophils (%) (Auto) 0.0-2.0 % Neutrophils # (Auto) 1.6-8.6 10 ^3/uL Lymphocytes # (Auto) 0.4-5.4 10 ^3/uL Monocytes # (Auto) 0-1.3 10 ^3/uL Differential Total Cells Counted 100.0 100 Neutrophils % (Manual) 65 37.0-80.0 Band Neutrophils % (Manual) 4 Lymphocytes % (Manual) 16 10.0-50.0 Monocytes % (Manual) 15 H 0-12 Eosinophils % (Manual) 0 0-7 Basophils % (Manual) 0 0.0-2.0 Metamyelocytes % (manual) 0 Myelocytes % (Manual) 0 Promyelocytes % (Manual) 0 Blast Cells % (Manual) 0 Reactive Lymphocytes 0 Platelet Estimate Adequate Sodium Level 139 136-145 mmol/L Potassium Level 3.4 L 3.5-5.1 mmol/L Chloride Level 105 98-107 mmol/L Carbon Dioxide Level 23 20-31 mmol/L Anion Gap 11 5-15 Blood Urea Nitrogen 8 L 9-23 mg/dL Creatinine 1.23 0.700-1.30 mg/dL Glomerular Filtration Rate Calc 60 >90 mL/min BUN/Creatinine Ratio 6.5 L 10.0-20.0 Serum Glucose 103 74-106 mg/dL Calcium Level 8.7 8.7-10.4 mg/dL Vancomycin Level Trough 10.0 5-10 ug/mL Ovalocytes Few Total Bilirubin 2.4 H 0.2-1.0 mg/dL Aspartate Amino Transferase (AST) 18 13-40 U/L Alanine Aminotransferase (ALT) 10 7-40 U/L Alkaline Phosphatase 52 46-116 U/L Total Protein 7.5 5.7-8.2 g/dL Albumin 4.0 3.2-4.8 g/dL D-Dimer, Quantitative 0.58 H 0.0-0.49 mg/L FEU B-Type Natriuretic Peptide 62.75 0-100 pg/mL Test 12/04/24 13:09 12/04/24 12:55 12/04/24 11:13 12/04/24 10:09 Range/Units Urine Color Light-yellow Yellow Urine Clarity Clear Clear Urine pH 6.0 5.0-9.0 Urine Specific [place] 1.013 1.001-1.035 Urine Protein Negative Negative Urine Ketones 2+ H Negative Urine Blood 1+ H Negative /uL Urine Nitrite Negative Negative Urine Bilirubin Negative Negative Urine Urobilinogen Normal Negative mg/dL Urine Leukocyte Esterase Negative Negative /uL Urine RBC 5 0 - 3 /hpf Urine Microscopic WBC 1 0-3 /HPF Urine Squamous Epithelial Cells None seen <5 /hpf Urine Bacteria None seen None Seen /hpf Urine Glucose Normal Normal mg/dL Urine Opiates Screen Neg NEGATIVE Urine Fentanyl Screen Neg NEGATIVE Urine Barbiturates Screen Neg NEGATIVE Urine Phencyclidine Screen Neg NEGATIVE Urine Amphetamines Screen Neg NEGATIVE Urine Benzodiazepines Screen Neg NEGATIVE Urine Cocaine Screen Neg NEGATIVE Urine Cannabinoids Screen Neg NEGATIVE Troponin I High Sensitivity 23 </=54 ng/L Blood Gas Specimen Type Arterial Blood Gas Sample Site Right radial Blood Gas Patient Temperature 37.0 Arterial Blood Date Drawn [id number] Arterial Blood pH 7.463 H 7.350-7.450 Arterial Blood Partial Pressure CO2 28.7 L 35.0-48.0 mmHg Arterial Blood Partial Pressure O2 59.3 L 83.0-108.0 mmHg Arterial Blood HCO3 20.1 L 21.0-28.0 mmol/L Arterial Blood Oxygen Saturation 91.2 L 94.0-98.0 % Arterial Blood Base Excess -2.3 L -2.0-3.0 mmol/L Arterial Blood Oxyhemoglobin 89.8 L 94.0-98.0 % Arterial Blood Carboxyhemoglobin 0.9 0.5-1.5 % Arterial Blood Methemoglobin 0.6 0.0-1.5 % Gary Test Yes Blood Gas Total Hemoglobin 14.90 13.5-17.5 g/dL Blood Gas Modality Mask - bipap Blood Gas Spontaneous Rate 19 FiO2 % 100.0 Blood Gas EPAP 6 Blood Gas IPAP 12 Eosinophils (%) (Auto) 0.5 0.0-7.0 % Eosinophils # (Auto) 0 0-0.8 10 ^3/uL Basophils # (Auto) 0 0-0.2 10 ^3/uL Nucleated Red Blood Cells 0.2 % Lactic Acid Level 1.4 0.4-2.0 mmol/L Microbiology Date/Time Source Procedure Growth Status 12/04/24 10:05 Blood Blood Culture - Preliminary NO GROWTH AFTER 72 HOURS OF INCUBATION. Resulted Assessment Impression: Acute hypoxic respiratory failure Dependence on supplemental oxygen Lung collapse, r/o cancer vs. mucous plugging Atelectasis Pneumonia, likely GNR Elevated D-dimer. Rule out PE. Hx of nicotine dependence Plan: Supplemental oxygen Currently on 2 LPM NC Titrate to keep O2 sats above 92%. Improving O2 requirements - continue to taper O2 as tolerated. CT angio on 12/04/24 showed No pulmonary embolism Complete collapse of the left lung with left-sided endobronchial impaction secondary to mass versus secretions. Superimposed suspected consolidation of the central aspect of the collapsed left lung. Inconspicuous area of centrilobular ground-glass without consolidation in the posterior basilar segment, right lower lobe. small area of possible pneumonitis. No measurable lymphadenopathy Continue bronchodilators. Continue antibiotics Incentive spirometry Plan for bronchoscopy with bronchoalveolar lavage to clear suspected mucous plug s, possible brushings, possible biopsy. Monitor renal function. Monitor electrolytes. Supplement as necessary. Monitor ins and outs. DVT prophylaxis. Prognosis: Poor given patient's multiple co-morbidities. Rest of plan per hospitalist and other consultants. Thank you, Dr. Borden, for allowing me to participate in this patient's care. Further recommendations will depend on the patient's clinical course. Please do not hesitate to contact me if you have any questions or concerns. This medical document was created using an electronic medical record system with Dragon computerized dictation system. Although these documentations are being carefully reviewed, there may still be some phonetic and typographical changes. The errors are purely typographical, due to imperfection on the software program, and do not reflect any compromise in the patient's medical care. Plan discussed with: Patient, Other (RN/Dr. Borden) Date of Service: Dec 06, 2024 Billing Provider: LESLIE PALMER MD Common Visit Codes: [id number] INP/OBS CARE (HIGH) LESLIE PALMER MD Dec 07, 2024 22:56
--- NOTE | 2024-12-07 23:23 | DVHPN2 ---
Subjective DOS: 12/07/2024 Patient seen and examined at bedside. On supplemental oxygen Overnight events reviewed. Reviewed: Care Plan, H&P, Labs, Medications, Previous Orders, Radiology Changes from previous H/P or p: No Changes Respiratory: Shortness of breath, Hemoptysis Objective Vitals Vital Signs Date Time Temp Pulse Resp B/P (MAP) Pulse Ox O2 Delivery O2 Flow Rate FiO2 12/07/24 22:45 83 18 100 12/07/24 22:37 Nasal Cannula* 2 28 12/07/24 21:00 98.3 139/83 (101) 98.3 Intake/Output Intake and Output 12/07/24 07:00 Intake Total 1690 ml Output Total 1400 ml Balance 290 ml Intake Oral 1390 ml IV Total 300 ml Output Urine Total 1400 ml # Voids 5 General Appearance: Alert, Cooperative, No acute distress HEENT: Atraumatic, PERRLA, EOMI, Mucous membr. moist/pink Neck: Supple Lungs: Clear to auscultation, Normal air movement Cardiovascular: Regular rate, Normal S1, Normal S2, No murmurs, Gallops, Rubs Abdomen: Normal bowel sounds, Soft, No tenderness Neuro: Cranial nerves 3-12 NL Psych/Mental Status: Mental status NL Medications Current Medications Medications Dose Ordered Sig/Rc Route Start Time Stop Time Status Last Admin Dose Admin Vancomycin HCl 0 ml @ 0 mls/hr UD IV 12/04/24 13:15 Cefepime HCl 50 ml @ 12.5 mls/hr Q8HR IV 12/04/24 14:00 12/07/24 22:46 12.5 MLS/HR Albuterol 2.5 mg Q4HR NEB 12/04/24 14:00 12/07/24 22:37 2.5 MG Ipratropium [place] 0.5 mg Q4HR NEB 12/04/24 14:00 12/07/24 22:37 0.5 MG Ondansetron HCl 4 mg Q4HP PRN IV 12/04/24 13:15 Enoxaparin Sodium 40 mg DAILY SC 12/05/24 10:00 12/07/24 09:24 40 MG Acetaminophen 650 mg Q6HP PRN PO 12/04/24 13:15 Aspirin 81 mg DAILY PO 12/05/24 10:00 12/07/24 09:24 81 MG Ergocalciferol 50,000 unit QWEEKLY PO 12/04/24 13:30 Finasteride 5 mg DAILY PO 12/05/24 10:00 12/07/24 09:24 5 MG Hydroxyurea 500 mg DAILY PO 12/05/24 10:00 12/07/24 09:23 500 MG Tamsulosin HCl 0.4 mg QPM PO 12/04/24 18:00 12/07/24 18:16 0.4 MG Patient Own Medication 1 Q24H OP 12/06/24 23:00 12/07/24 22:46 1 Timolol Maleate 1 drop BIDBRS EACHEYE 12/07/24 08:00 12/07/24 18:27 1 DROP Amiodarone HCl 200 mg DAILY PO 12/08/24 10:00 Polyethylene Glycol 17 gm DAILYPRN PRN PO 12/07/24 16:00 Docusate Sodium 100 mg BIDPRN PRN PO 12/07/24 16:00 Vancomycin HCl 250 ml @ 200 mls/hr Q12HR IV 12/07/24 22:00 12/07/24 21:15 200 MLS/HR Laboratory Results Laboratory Tests 12/07/24 05:52 Chemistry Test 12/07/24 05:52 Calcium Level 8.7 mg/dL (8.7-10.4) Urinalysis Test 12/04/24 13:09 Urine Color Light-yellow (Yellow) Urine Clarity Clear (Clear) Urine pH 6.0 (5.0-9.0) Urine Specific [place] 1.013 (1.001-1.035) Urine Protein Negative (Negative) Urine Ketones 2+ (Negative) H Urine Blood 1+ /uL (Negative) H Urine Nitrite Negative (Negative) Urine Bilirubin Negative (Negative) Urine Urobilinogen Normal mg/dL (Negative) Urine Leukocyte Esterase Negative /uL (Negative) Urine RBC 5 /hpf (0 - 3) Urine Microscopic WBC 1 /HPF (0-3) Urine Squamous Epithelial Cells None seen /hpf (<5) Urine Bacteria None seen /hpf (None Seen) Urine Glucose Normal mg/dL (Normal) Microbiology Microbiology Date/Time Source Procedure Growth Status 12/04/24 10:05 Blood Blood Culture - Preliminary NO GROWTH AFTER 72 HOURS OF INCUBATION. Resulted Assessment/Plan Assessment/Plan Impression: Acute hypoxic respiratory failure Dependence on supplemental oxygen Lung collapse, r/o cancer vs. mucous plugging Atelectasis Pneumonia, likely GNR Elevated D-dimer. Rule out PE. Hx of nicotine dependence Events: Remains on supplemental oxygen, 2 LPM NC Taper O2 as tolerated Continue bronchodilators Continue antibiotics Incentive spirometry Cardiology recs appreciated Obtain consent for bronchoscopy with BAL. Labs and imaging reviewed. Rest of plan as noted below. Plan: Supplemental oxygen Titrate to keep O2 sats above 92%. Improving O2 requirements - continue to taper O2 as tolerated. CT angio on 12/04/24 showed No pulmonary embolism Complete collapse of the left lung with left-sided endobronchial impaction secondary to mass versus secretions. Superimposed suspected consolidation of the central aspect of the collapsed left lung. Inconspicuous area of centrilobular ground-glass without consolidation in the posterior basilar segment, right lower lobe. small area of possible pneumonitis. No measurable lymphadenopathy Continue bronchodilators. Continue antibiotics Incentive spirometry Plan for bronchoscopy with bronchoalveolar lavage to clear suspected mucous plugs, possible brushings, possible biopsy. Monitor renal function. Monitor electrolytes. Supplement as necessary. Monitor ins and outs. DVT prophylaxis. Prognosis: Poor given patient's multiple co-morbidities. Rest of plan per hospitalist and other consultants. Thank you, Dr. Borden, for allowing me to participate in this patient's care. Further recommendations will depend on the patient's clinical course. Please do not hesitate to contact me if you have any questions or concerns. This medical document was created using an electronic medical record system with LYYN dictation system. Although these documentations are being carefully reviewed, there may still be some phonetic and typographical changes. The errors are purely typographical, due to imperfection on the software program, and do not reflect any compromise in the patient's medical care. Plan discussed with: Patient, Other (TAYO Ahmadi) Date of Service: Dec 07, 2024 Billing Provider: LESLIE PALMER MD Common Visit Codes: [id number] INP/OBS CARE(HIGH) LESLIE PALMER MD Dec 07, 2024 23:23
[2024-12-08] VITALS (19 sets, daily range): BP systolic 127–152; BP diastolic 80–95; PULSE 67–91; RESP 16–20; TEMP 97.5–98.7; O2SAT 92–100
[2024-12-08 06:48] LABS: Hematocrit 39.5 % (41.0-53.0); Hemoglobin 13.4 g/dL (13.5-17.5); Mean Corpuscular Hemoglobin 33.1 pg (28.0-32.0); Mean Corpuscular Volume 97.4 fL (80.0-100.0)
[2024-12-08 06:59] LABS: Potassium 3.7 mmol/L (3.5-5.1); Sodium 138 mmol/L (136-145)
[2024-12-08 07:00] LABS: Anion Gap 10 (5-15); Carbon Dioxide 21 mmol/L (20-31); Chloride 107 mmol/L (98-107)
[2024-12-08 07:01] LABS: Calcium 8.5 mg/dL (8.7-10.4)
[2024-12-08 07:05] LABS: BUN/Creatinine Ratio 7.0 (10.0-20.0); Glucose 89 mg/dL (74-106)
[2024-12-08 07:06] LABS: Blood Urea Nitrogen 7 mg/dL (9-23)
--- NOTE | 2024-12-08 07:47 | ECG ---
[facility] Test Date: 2024-12-07 Test Time: 12:56:06 Pat Name: LAURA SAMUEL Department: Room: 0290T B Gender: M Experience Designer: : 1945 Requested By: MESHA FOGN Order Number: [id number] Reading MD: Ryley Mckee Measurements Intervals [place] Rate: 87 P: 0 OR: 0 QRS: 3 QRSD: 90 T: 115 QT: 447 QTc: 538 Interpretive Statements Accelerated junctional rhythm Abnormal R-wave progression, late transition Borderline T wave abnormalities Prolonged QT interval Electronically Signed On 12-11-2024 21:07:10 PDT by Ryley Mckee Please click the below link to view image of tracing.
--- NOTE | 2024-12-08 07:47 | ECG ---
[facility] Test Date: 2024-12-07 Test Time: 12:54:36 Pat Name: LAURA SAMUEL Department: Room: 0290T B Gender: M Consolidator: : 1945 Requested By: MESHA FONG Order Number: [id number] Reading MD: Ryley Mckee Measurements Intervals [place] Rate: 88 P: 0 IN: 0 QRS: 22 QRSD: 124 T: 14 QT: 457 QTc: 553 Interpretive Statements Accelerated junctional rhythm Nonspecific intraventricular conduction delay Minimal ST depression Electronically Signed On 12-11-2024 21:07:07 PDT by Ryley Mckee Please click the below link to view image of tracing.
--- NOTE | 2024-12-08 07:49 | ECG ---
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
[2024-12-08 08:46] LABS: Total Cells Counted 100.0 (100)
[2024-12-08] MEDS: POLYETHYLENE GLYCOL 17 GM PWDR PO PRN (09:20)
[2024-12-08] MEDS: AMIODARONE HCL 200 MG TAB PO SCH (09:23)
--- NOTE | 2024-12-08 11:34 | DVHPN2 ---
Subjective The patient is seen and examined at bedside. Still complain of shortness for breath and wheezing. Reviewed: Care Plan, H&P, Labs, Medications, Previous Orders, Radiology Changes from previous H/P or p: No Changes Respiratory: Shortness of breath, Hemoptysis Objective Vitals Vital Signs Date Time Temp Pulse Resp B/P (MAP) Pulse Ox O2 Delivery O2 Flow Rate FiO2 12/08/24 10:26 77 16 100 12/08/24 10:20 Nasal Cannula* 2 28 12/08/24 09:00 98.3 152/95 (114) 98.3 Intake/Output Intake and Output 12/08/24 07:00 Intake Total 1750 ml Output Total 1400 ml Balance 350 ml Intake Oral 1100 ml IV Total 650 ml Output Urine Total 1400 ml General Appearance: Alert, Oriented X3, Cooperative, No acute distress HEENT: Atraumatic, PERRLA, EOMI, Mucous membr. moist/pink Neck: Supple Lungs: Clear to auscultation, Normal air movement Cardiovascular: Regular rate, Normal S1, Normal S2, No murmurs, Gallops, Rubs Abdomen: Normal bowel sounds, Soft, No tenderness Neuro: Cranial nerves 3-12 NL Psych/Mental Status: Mental status NL Medications Current Medications Medications Dose Ordered Sig/Rc Route Start Time Stop Time Status Last Admin Dose Admin Vancomycin HCl 0 ml @ 0 mls/hr UD IV 12/04/24 13:15 Cefepime HCl 50 ml @ 12.5 mls/hr Q8HR IV 12/04/24 14:00 12/08/24 05:28 12.5 MLS/HR Albuterol 2.5 mg Q4HR NEB 12/04/24 14:00 12/08/24 10:20 2.5 MG Ipratropium [place] 0.5 mg Q4HR NEB 12/04/24 14:00 12/08/24 10:20 0.5 MG Ondansetron HCl 4 mg Q4HP PRN IV 12/04/24 13:15 Enoxaparin Sodium 40 mg DAILY SC 12/05/24 10:00 12/08/24 09:22 40 MG Acetaminophen 650 mg Q6HP PRN PO 12/04/24 13:15 Aspirin 81 mg DAILY PO 12/05/24 10:00 12/08/24 09:22 81 MG Ergocalciferol 50,000 unit QWEEKLY PO 12/04/24 13:30 Finasteride 5 mg DAILY PO 12/05/24 10:00 12/08/24 09:22 5 MG Hydroxyurea 500 mg DAILY PO 12/05/24 10:00 12/08/24 09:24 500 MG Tamsulosin HCl 0.4 mg QPM PO 12/04/24 18:00 12/07/24 18:16 0.4 MG Patient Own Medication 1 Q24H OP 12/06/24 23:00 12/07/24 22:46 1 Timolol Maleate 1 drop BIDBRS EACHEYE 12/07/24 08:00 12/08/24 09:23 1 DROP Amiodarone HCl 200 mg DAILY PO 12/08/24 10:00 12/08/24 09:23 200 MG Polyethylene Glycol 17 gm DAILYPRN PRN PO 12/07/24 16:00 12/08/24 09:20 17 GM Docusate Sodium 100 mg BIDPRN PRN PO 12/07/24 16:00 Vancomycin HCl 250 ml @ 200 mls/hr Q12HR IV 12/07/24 22:00 12/08/24 09:23 200 MLS/HR Laboratory Results Laboratory Tests 12/08/24 05:33 Chemistry Test 12/08/24 05:33 Calcium Level 8.5 mg/dL (8.7-10.4) L Urinalysis Test 12/04/24 13:09 Urine Color Light-yellow (Yellow) Urine Clarity Clear (Clear) Urine pH 6.0 (5.0-9.0) Urine Specific [place] 1.013 (1.001-1.035) Urine Protein Negative (Negative) Urine Ketones 2+ (Negative) H Urine Blood 1+ /uL (Negative) H Urine Nitrite Negative (Negative) Urine Bilirubin Negative (Negative) Urine Urobilinogen Normal mg/dL (Negative) Urine Leukocyte Esterase Negative /uL (Negative) Urine RBC 5 /hpf (0 - 3) Urine Microscopic WBC 1 /HPF (0-3) Urine Squamous Epithelial Cells None seen /hpf (<5) Urine Bacteria None seen /hpf (None Seen) Urine Glucose Normal mg/dL (Normal) Microbiology Microbiology Date/Time Source Procedure Growth Status 12/04/24 10:05 Blood Blood Culture - Preliminary NO GROWTH AFTER 72 HOURS OF INCUBATION. Resulted Labs and/or images reviewed: Labs reviewed by me Assessment/Plan Assessment/Plan Acute hypoxic respiratory failure requiring Oxymizer oxygen to keep saturation oxygen above 92% Acute Gram-positive pneumonia Hemoptysis Complete collapse of the left lung with left-sided endobronchial impaction secondary to mass versus secretions. Superimposed suspected consolidation of the central aspect of the collapse left lung. Elevated D-dimer rule out PE History of right extracorporeal shockwave lithotripsy due to kidney stone History of tobacco use Continuing current management. Continuing with IV antibiotic. Continuing with Oxymizer. We will try to wean the patient off. Continuing with nebulizer. Appreciate Dr Appiah ,Pulmonology input. Waiting for bronchoscopy Discussed with patient at bedside in length regarding to plan of care. This medical document was created using an electronic medical record system with Dot[employer] computerized dictation system. Although this document has been carefully reviewed, there may still be some phonetic and typographical errors. These areas are purely typographical due to imperfections of the software programs, and do not reflect any compromise in the patient's medical care. Plan discussed with: Patient My Orders Orders - MESHA FONG MD Procedure Category Date Status Time Polyethylene Glycol PHA 12/07/24 In Process 17g Powder (Miralax 16:00 Docusate Sodium PHA 12/07/24 In Process Capsule (Colace 16:00 Date of Service: Dec 08, 2024 Billing Provider: MESHA FONG MD Common Visit Codes: [id number] INP/OBS CARE(HIGH) MESHA FONG MD Dec 08, 2024 11:34
--- NOTE | 2024-12-08 12:20 | DVHPN2 ---
Consult Progress Note Date Seen: Dec 08, 2024 Subjective Review of Systems: CVS:Normal, RESPIRATORY:Abnormal, NEURO:Normal Other Systems: C/o persistent cough Objective vital signs Vital Sign Date Time Temp Pulse Resp B/P (MAP) Pulse Ox O2 Delivery O2 Flow Rate FiO2 12/08/24 10:26 77 16 100 12/08/24 10:20 Nasal Cannula* 2 28 12/08/24 09:00 98.3 152/95 (114) 98.3 Total Intake and Output 12/07/24 12/07/24 12/08/24 15:00 23:00 07:00 Intake Total 300 ml 1000 ml 450 ml Output Total 1400 ml Balance 300 ml 1000 ml -950 ml medications Current Medications Medications Dose Ordered Sig/Rc Route Start Time Stop Time Status Last Admin Dose Admin Vancomycin HCl 0 ml @ 0 mls/hr UD IV 12/04/24 13:15 Cefepime HCl 50 ml @ 12.5 mls/hr Q8HR IV 12/04/24 14:00 12/08/24 05:28 12.5 MLS/HR Albuterol 2.5 mg Q4HR NEB 12/04/24 14:00 12/08/24 10:20 2.5 MG Ipratropium [place] 0.5 mg Q4HR NEB 12/04/24 14:00 12/08/24 10:20 0.5 MG Ondansetron HCl 4 mg Q4HP PRN IV 12/04/24 13:15 Enoxaparin Sodium 40 mg DAILY SC 12/05/24 10:00 12/08/24 09:22 40 MG Acetaminophen 650 mg Q6HP PRN PO 12/04/24 13:15 Aspirin 81 mg DAILY PO 12/05/24 10:00 12/08/24 09:22 81 MG Ergocalciferol 50,000 unit QWEEKLY PO 12/04/24 13:30 Finasteride 5 mg DAILY PO 12/05/24 10:00 12/08/24 09:22 5 MG Hydroxyurea 500 mg DAILY PO 12/05/24 10:00 12/08/24 09:24 500 MG Tamsulosin HCl 0.4 mg QPM PO 12/04/24 18:00 12/07/24 18:16 0.4 MG Patient Own Medication 1 Q24H OP 12/06/24 23:00 12/07/24 22:46 1 Timolol Maleate 1 drop BIDBRS EACHEYE 12/07/24 08:00 12/08/24 09:23 1 DROP Amiodarone HCl 200 mg DAILY PO 12/08/24 10:00 12/08/24 09:23 200 MG Polyethylene Glycol 17 gm DAILYPRN PRN PO 12/07/24 16:00 12/08/24 09:20 17 GM Docusate Sodium 100 mg BIDPRN PRN PO 12/07/24 16:00 Vancomycin HCl 250 ml @ 200 mls/hr Q12HR IV 12/07/24 22:00 12/08/24 09:23 200 MLS/HR Examination: GENERAL:Abnormal, LUNGS:Abnormal (Diminished left sided breath sounds), CVS:Normal (NSR), NEURO:Normal laboratory and microbiology Laboratory Tests 12/08/24 05:33 Test 12/08/24 05:33 Range/Units Serum Glucose 89 74-106 mg/dL Problem List/Assessment/Plan Problem List/Assessment/Plan Paroxysmal atrial fibrillation, Stage IIIa, newly diagnosed, now in sinus rhythm Acute hypoxic respiratory failure requiring Oxymizer oxygen to keep saturation oxygen above 92% Acute Gram-positive pneumonia with left-lung collapse and associated hemoptysis Hypertension Hx of thrombocytosis (on ASA at home) History of tobacco use Plan/Recommendation (Dr. Almazan ) * Transthoracic echocardiogram revealed LVEF 70% * Aortic sclerosis * Initiate therapeutic Lovenox and transition to low-dose Eliquis prior to discharge * [id number] Score 3 points. HAS-BLED Score 3 points. * Antiarrhythmic therapy, amiodarone 200 mg p.o. daily for rhythm control * Transition to Eliquis 2.5 mg b.i.d. on discharge * Rate control, initiate beta-miguelangel. 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 Continue Pulmonology recommendations. We will sign off at this time. Kindly call with any questions, concerns, or if in need of further recommendations. Thank you for allowing us to care for this patient. This medical document was created using an electronic medical record system with voice recognition software and computerized dictation system. Although this document has been carefully reviewed, there might still be some phonetic and typographical errors. Occasional wrong-word or ``sound-alike substitutions may have occurred due to the inherent limitations of voice recognition software. These areas are purely typographical due to imperfections of the software programs and do not reflect any compromise in the patient's medical care. Please read the chart carefully and recognize, using context, where these substitutions have occurred. Plan discussed with: Patient, Other Dietary Evaluation Review Recommendations by RD: Dietary education by RD Comments: 1) Continue cardiac diet 2) Encourage optimal PO intake 3) Refer to outpatient RD for weight management 4) Follow-up with cardiology and pulmonology 5) Continue to monitor I&O, labs, and skin integrity Expected Outcomes/Goals: 1) appetite and labs to improve 2) gradual wt loss 3) f/u in 3-5 days Date of Service: Dec 08, 2024 Billing Provider: BOBBY LOCKHART Cardiology Common Codes: 17598-[id number] [facility](High BOBBY LOCKHART Dec 08, 2024 12:20
[2024-12-08] MEDS: POTASSIUM CHL 20 Meq TABLET PO ONE (12:56)
[2024-12-08] MEDS: ENOXAPARIN SOD 60 MG/0.6 ML SYRINGE SC ONE (12:57)
[2024-12-08] MEDS: METOPROLOL SUCCINATE XL 50 MG TAB PO ONE (12:57)
--- NOTE | 2024-12-08 13:27 | DVH ---
EXAM: XY CHEST PORTABLE Indication: SOB, cough Technique: Single frontal view of the chest was obtained Comparison: CT CT ANGIO CHEST CONTRAST on DOS: 12/04/24, CT CHEST WITHOUT CONTRAST on DOS: 12/04/24, XY CHEST PORTABLE on DOS: 12/04/24, CHEST WITHOUT CONTRAST on DOS: 01/05/21, CHEST WITHOUT CONTRAST on D OS: 09/02/20 FINDINGS: Lines and Tubes: None Lungs: Moderate left pleural effusion and left basilar opacity. No pneumothorax. Cardiomediastinal contours: Unremarkable Bones: No acute osseous abnormality. IMPRESSION: Moderate left pleural effusion and left basilar opacity.
[2024-12-08 13:44] LABS: COVID19 ANTIGEN SOFIA FIA NEGATIVE (NEGATIVE)
[2024-12-08] MEDS: DOCUSATE SOD 100 MG CAP PO PRN (17:47)
[2024-12-08] MEDS: ENOXAPARIN SOD 100 MG/1 ML SYRINGE SC SCH (21:25)
--- NOTE | 2024-12-08 22:20 | DVHPN2 ---
Subjective DOS: 12/08/2024 Patient seen and examined at bedside. On supplemental oxygen Overnight events reviewed. Reviewed: Care Plan, H&P, Labs, Medications, Previous Orders, Radiology Changes from previous H/P or p: No Changes Respiratory: Shortness of breath, Hemoptysis Objective Vitals Vital Signs Date Time Temp Pulse Resp B/P (MAP) Pulse Ox O2 Delivery O2 Flow Rate FiO2 12/08/24 21:39 96 Nasal Cannula 2.0 12/08/24 21:39 28 12/08/24 21:39 67 18 12/08/24 21:00 97.5 139/85 (103) 97.5 Intake/Output Intake and Output 12/08/24 07:00 Intake Total 1750 ml Output Total 1400 ml Balance 350 ml Intake Oral 1100 ml IV Total 650 ml Output Urine Total 1400 ml General Appearance: Alert, Cooperative, No acute distress HEENT: Atraumatic, PERRLA, EOMI, Mucous membr. moist/pink Neck: Supple Lungs: Clear to auscultation, Normal air movement Cardiovascular: Regular rate, Normal S1, Normal S2, No murmurs, Gallops, Rubs Abdomen: Normal bowel sounds, Soft, No tenderness Neuro: Cranial nerves 3-12 NL Psych/Mental Status: Mental status NL Medications Current Medications Medications Dose Ordered Sig/Rc Route Start Time Stop Time Status Last Admin Dose Admin Vancomycin HCl 0 ml @ 0 mls/hr UD IV 12/04/24 13:15 Cefepime HCl 50 ml @ 12.5 mls/hr Q8HR IV 12/04/24 14:00 12/08/24 13:16 12.5 MLS/HR Albuterol 2.5 mg Q4HR NEB 12/04/24 14:00 12/08/24 21:39 2.5 MG Ipratropium [place] 0.5 mg Q4HR NEB 12/04/24 14:00 12/08/24 21:39 0.5 MG Ondansetron HCl 4 mg Q4HP PRN IV 12/04/24 13:15 Acetaminophen 650 mg Q6HP PRN PO 12/04/24 13:15 Ergocalciferol 50,000 unit QWEEKLY PO 12/04/24 13:30 Finasteride 5 mg DAILY PO 12/05/24 10:00 12/08/24 09:22 5 MG Hydroxyurea 500 mg DAILY PO 12/05/24 10:00 12/08/24 09:24 500 MG Tamsulosin HCl 0.4 mg QPM PO 12/04/24 18:00 12/08/24 17:47 0.4 MG Patient Own Medication 1 Q24H OP 12/06/24 23:00 12/07/24 22:46 1 Timolol Maleate 1 drop BIDBRS EACHEYE 12/07/24 08:00 12/08/24 17:47 1 DROP Amiodarone HCl 200 mg DAILY PO 12/08/24 10:00 12/08/24 09:23 200 MG Polyethylene Glycol 17 gm DAILYPRN PRN PO 12/07/24 16:00 12/08/24 09:20 17 GM Docusate Sodium 100 mg BIDPRN PRN PO 12/07/24 16:00 12/08/24 17:47 100 MG Vancomycin HCl 250 ml @ 200 mls/hr Q12HR IV 12/07/24 22:00 12/08/24 21:18 200 MLS/HR Enoxaparin Sodium 100 mg Q12HR SC 12/08/24 22:00 12/08/24 21:25 100 MG Metoprolol Succinate 25 mg DAILY PO 12/09/24 10:00 Laboratory Results Laboratory Tests 12/08/24 05:33 Chemistry Test 12/08/24 05:33 Calcium Level 8.5 mg/dL (8.7-10.4) L Magnesium Level 2.1 mg/dL (1.6-2.6) HgA1c, TSH Test 12/08/24 05:33 Hemoglobin A1c 5.2 % A1C (<5.7) Thyroid Stimulating Hormone (TSH) 1.40 uIU/mL (0.55-4.78) Urinalysis Test 12/04/24 13:09 Urine Color Light-yellow (Yellow) Urine Clarity Clear (Clear) Urine pH 6.0 (5.0-9.0) Urine Specific [place] 1.013 (1.001-1.035) Urine Protein Negative (Negative) Urine Ketones 2+ (Negative) H Urine Blood 1+ /uL (Negative) H Urine Nitrite Negative (Negative) Urine Bilirubin Negative (Negative) Urine Urobilinogen Normal mg/dL (Negative) Urine Leukocyte Esterase Negative /uL (Negative) Urine RBC 5 /hpf (0 - 3) Urine Microscopic WBC 1 /HPF (0-3) Urine Squamous Epithelial Cells None seen /hpf (<5) Urine Bacteria None seen /hpf (None Seen) Urine Glucose Normal mg/dL (Normal) Microbiology Microbiology Date/Time Source Procedure Growth Status 12/04/24 10:05 Blood Blood Culture - Preliminary NO GROWTH AFTER 72 HOURS OF INCUBATION. Resulted Assessment/Plan Assessment/Plan Impression: Acute hypoxic respiratory failure Dependence on supplemental oxygen Lung collapse, r/o cancer vs. mucous plugging Atelectasis Pneumonia, likely GNR Elevated D-dimer. Rule out PE. Hx of nicotine dependence Events: Remains on supplemental oxygen, 2 LPM NC Taper O2 as tolerated CXR today notable for moderate left pleural effusion and left basilar opacity. Continue bronchodilators Continue antibiotics Incentive spirometry Chest physiotherapy. Cardiology recs appreciated Plan for bronchoscopy with BAL in the AM. Patient to be NPO at midnight. Labs and imaging reviewed. Rest of plan as noted below. Plan: Supplemental oxygen Titrate to keep O2 sats above 92%. CT angio on 12/04/24 showed No pulmonary embolism Complete collapse of the left lung with left-sided endobronchial impaction secondary to mass versus secretions. Superimposed suspected consolidation of the central aspect of the collapsed left lung. Inconspicuous area of centrilobular ground-glass without consolidation in the posterior basilar segment, right lower lobe. small area of possible pneumonitis. No measurable lymphadenopathy Continue bronchodilators. Continue antibiotics Incentive spirometry Plan for bronchoscopy with bronchoalveolar lavage to clear suspected mucous plugs, possible brushings, possible biopsy. Monitor renal function. Monitor electrolytes. Supplement as necessary. Monitor ins and outs. DVT prophylaxis. Prognosis: Poor given patient's multiple co-morbidities. Rest of plan per hospitalist and other consultants. Thank you, Dr. Borden, for allowing me to participate in this patient's care. Further recommendations will depend on the patient's clinical course. Please do not hesitate to contact me if you have any questions or concerns. This medical document was created using an electronic medical record system with [employer] system. Although these documentations are being carefully reviewed, there may still be some phonetic and typographical changes. The errors are purely typographical, due to imperfection on the software program, and do not reflect any compromise in the patient's medical care. Plan discussed with: Other (TAYO Ahmadi) Date of Service: Dec 08, 2024 Billing Provider: LESLIE PALMER MD Common Visit Codes: [id number] INP/OBS CARE(HIGH) LESLIE PAMLER MD Dec 08, 2024 22:20
[2024-12-09] VITALS (17 sets, daily range): BP systolic 125–156; BP diastolic 75–92; PULSE 7–98; RESP 13–19; TEMP 97.2–99.1; O2SAT 95–100
[2024-12-09] MEDS ORDERED: FLUMAZENIL 0.1 MG/ML INJ 10ML MDV IV ONE (07:34)
[2024-12-09] MEDS ORDERED: SODIUM CHLORIDE LOCK 10 ML ONE (07:34)
[2024-12-09] MEDS ORDERED: NALOXONE HCL 0.4 MG/ML VIAL ONE (07:37)
[2024-12-09] MEDS ORDERED: LIDOCAINE 2%HCL (LOCAL ANESTH.) INJ 20ML MDV ONE (07:37)
[2024-12-09] MEDS ORDERED: LIDOCAINE 2% JELLY 11ml (GLYDO) ONE (07:37)
[2024-12-09] MEDS: fentaNYL CITRATE 100 MCG/2 ML VL ONE (08:50)
[2024-12-09] MEDS: diphenhdrAMINE HCL 50 MG/1 ML VL ONE (08:50)
[2024-12-09] MEDS: MIDAZOLAM HCL 5 MG/ML-1ML VIAL ONE (08:50)
[2024-12-09] MEDS: GLYCOPYRROLATE 0.2 MG/ML 1ML VIAL ONE (08:50)
--- NOTE | 2024-12-09 09:19 | ECG ---
[facility] Test Date: 2024-12-07 Test Time: 09:53:22 Pat Name: LAURA SAMUEL Department: Room: 0290T B Gender: M Publication Specialist: JORDYN : 1945 Requested By: MESHA FONG Order Number: [id number] Reading MD: Ryley Mckee Measurements Intervals [place] Rate: 98 P: 0 ID: 0 QRS: 45 QRSD: 98 T: -24 QT: 357 QTc: 456 Interpretive Statements Atrial fibrillation Borderline T abnormalities, inferior leads Baseline wander in lead(s) II,III,aVL,aVF,V1 Electronically Signed On 12-11-2024 21:06:59 PDT by Ryley Mckee Please click the below link to view image of tracing.
--- NOTE | 2024-12-09 10:07 | DVHNC2 ---
Procedure - Bronchoscopy LESLIE PALMER MD Dec 09, 2024 10:07
--- NOTE | 2024-12-09 10:07 | DVHNC2 ---
LESLIE PALMER MD Dec 09, 2024 10:07
[2024-12-09] MEDS: METOPROLOL SUCCINATE XL 50 MG TAB PO SCH (10:57)
--- NOTE | 2024-12-09 10:57 | DVH ---
INDICATION: port bronchoscopy TECHNIQUE: Single frontal view of the chest was obtained COMPARISON: XY CHEST PORTABLE on DOS: 12/08/24, CT CT ANGIO CHEST CONTRAST on DOS: 12/04/24, CT CHEST W ITHOUT CONTRAST on DOS: 12/04/24, XY CHEST PORTABLE on DOS: 12/04/24, THYROID on DOS: 01/24/21, XY CHES T PORTABLE on DOS: 12/08/24 FINDINGS: Lines and Tubes: None Lungs: Moderate left pleural effusion and left basilar opacity. No pneumothorax. Cardiomediastinal contours: Unremarkable Bones: No acute osseous abnormality. IMPRESSION: Moderate left pleural effusion and left basilar opacity.
--- NOTE | 2024-12-09 11:26 | DVHPN2 ---
Subjective The patient is seen and examined at bedside. Still complain of shortness for breath and wheezing. The patient also complained of cough. Status post bronchoscopy and biopsy. Reviewed: Care Plan, H&P, Labs, Medications, Previous Orders, Radiology Changes from previous H/P or p: No Changes Respiratory: Shortness of breath, Hemoptysis Objective Vitals Vital Signs Date Time Temp Pulse Resp B/P (MAP) Pulse Ox O2 Delivery O2 Flow Rate FiO2 12/09/24 10:57 95 133/72 12/09/24 09:48 16 95 12/09/24 09:18 Nasal Cannula 5.0 99 12/09/24 09:18 98.8 98.8 Intake/Output Intake and Output 12/09/24 07:00 Intake Total 1750 ml Output Total 1200 ml Balance 550 ml Intake Oral 1150 ml IV Total 600 ml Output Urine Total 1200 ml General Appearance: Alert, Cooperative, No acute distress HEENT: Atraumatic, PERRLA, EOMI, Mucous membr. moist/pink Neck: Supple Lungs: Clear to auscultation, Normal air movement Cardiovascular: Regular rate, Normal S1, Normal S2, No murmurs, Gallops, Rubs Abdomen: Normal bowel sounds, Soft, No tenderness Neuro: Cranial nerves 3-12 NL Psych/Mental Status: Mental status NL Medications Current Medications Medications Dose Ordered Sig/Rc Route Start Time Stop Time Status Last Admin Dose Admin Vancomycin HCl 0 ml @ 0 mls/hr UD IV 12/04/24 13:15 Cefepime HCl 50 ml @ 12.5 mls/hr Q8HR IV 12/04/24 14:00 12/09/24 06:18 12.5 MLS/HR Albuterol 2.5 mg Q4HR NEB 12/04/24 14:00 12/09/24 07:37 2.5 MG Ipratropium [place] 0.5 mg Q4HR NEB 12/04/24 14:00 12/09/24 07:37 0.5 MG Ondansetron HCl 4 mg Q4HP PRN IV 12/04/24 13:15 Acetaminophen 650 mg Q6HP PRN PO 12/04/24 13:15 Ergocalciferol 50,000 unit QWEEKLY PO 12/04/24 13:30 Finasteride 5 mg DAILY PO 12/05/24 10:00 12/09/24 10:54 5 MG Hydroxyurea 500 mg DAILY PO 12/05/24 10:00 12/09/24 10:54 500 MG Tamsulosin HCl 0.4 mg QPM PO 12/04/24 18:00 12/08/24 17:47 0.4 MG Patient Own Medication 1 Q24H OP 12/06/24 23:00 12/08/24 23:17 1 Timolol Maleate 1 drop BIDBRS EACHEYE 12/07/24 08:00 12/09/24 10:53 1 DROP Amiodarone HCl 200 mg DAILY PO 12/08/24 10:00 12/09/24 10:54 200 MG Polyethylene Glycol 17 gm DAILYPRN PRN PO 12/07/24 16:00 12/08/24 09:20 17 GM Docusate Sodium 100 mg BIDPRN PRN PO 12/07/24 16:00 12/08/24 17:47 100 MG Vancomycin HCl 250 ml @ 200 mls/hr Q12HR IV 12/07/24 22:00 12/09/24 10:54 200 MLS/HR Enoxaparin Sodium 100 mg Q12HR SC 12/08/24 22:00 12/09/24 10:54 100 MG Metoprolol Succinate 25 mg DAILY PO 12/09/24 10:00 12/09/24 10:57 25 MG Laboratory Results Laboratory Tests 12/08/24 05:33 Urinalysis Test 12/04/24 13:09 Urine Color Light-yellow (Yellow) Urine Clarity Clear (Clear) Urine pH 6.0 (5.0-9.0) Urine Specific [place] 1.013 (1.001-1.035) Urine Protein Negative (Negative) Urine Ketones 2+ (Negative) H Urine Blood 1+ /uL (Negative) H Urine Nitrite Negative (Negative) Urine Bilirubin Negative (Negative) Urine Urobilinogen Normal mg/dL (Negative) Urine Leukocyte Esterase Negative /uL (Negative) Urine RBC 5 /hpf (0 - 3) Urine Microscopic WBC 1 /HPF (0-3) Urine Squamous Epithelial Cells None seen /hpf (<5) Urine Bacteria None seen /hpf (None Seen) Urine Glucose Normal mg/dL (Normal) Microbiology Microbiology Date/Time Source Procedure Growth Status 12/04/24 10:05 Blood Blood Culture - Final NO GROWTH AFTER 5 DAYS OF INCUBATION. Complete Labs and/or images reviewed: Labs reviewed by me Assessment/Plan Assessment/Plan Acute hypoxic respiratory failure requiring Oxymizer oxygen to keep saturation oxygen above 92% Acute Gram-positive pneumonia Hemoptysis Complete collapse of the left lung with left-sided endobronchial impaction secondary to mass versus secretions. Superimposed suspected consolidation of the central aspect of the collapse left lung. Elevated D-dimer rule out PE History of right extracorporeal shockwave lithotripsy due to kidney stone History of tobacco use Continuing current management. Continuing with IV antibiotic. Continuing with Oxymizer. We will try to wean the patient off. Continuing with nebulizer. Appreciate Dr Appiah ,Pulmonology input. Status post bronchoscopy and biopsy. We will give cough drops PRN for cough Discussed with patient at bedside in length regarding to plan of care. This medical document was created using an electronic medical record system with [employer] direct computerized dictation system. Although this document has been carefully reviewed, there may still be some phonetic and typographical errors. These areas are purely typographical due to imperfections of the software programs, and do not reflect any compromise in the patient's medical care. Plan discussed with: Patient Date of Service: Dec 09, 2024 Billing Provider: MESHA FONG MD Common Visit Codes: [id number] INP/OBS CARE(HIGH) MESHA FONG MD Dec 09, 2024 11:26
--- NOTE | 2024-12-09 12:33 | DVHNC2 ---
Procedure - I administered moderate sedation throughout the 22 minutes of the procedure. An independent observer administered medications at my direction and monitored the patient's level of consciousness and physiological status throughout the procedure. CPT 87227 for the first 15 minutes. CPT 56843 for each additional 15 minutes of conscious sedation. CONSCIOUS SEDATION PROCEDURE NOTE: Procedural Sedation Performed by: Dr Mariya Appiah Indications: Bronchoscopy [place] Protocol: a time out was performed and the correct patient and site were verified Consent: The risks and benefits of monitored anesthesia care, including the risk of aspiration, deep sedation requiring airway management including possible intubation, nausea/vomiting and the risks of not performing the procedure, including severe pain and inability to complete the procedure, were all discussed with the patient. The alternatives of performing the procedure, including local anesthesia and IV analgesia, also discussed. The patient has a ride home available. ASA Class: II-mild systemic disease Mallampati Score: 2 Pre-anesthesia evaluation, including history, exam, and informed consent is documented in the note above. Monitoring: Continuous monitoring of heart rate, respiratory rate, pulse oximetry and ETCO2. Supplemental oxygen prior to and during procedure via nasal cannula. Resuscitation equipment available at the bedside during sedation. Intra-service start time: 0850 AM Intra-service stop time: 0912 AM The patient received VERSED 2 MG IV PUSH, FENTANYL 50 MCG IV PUSH, BENADRYL 50 MG IV PUSH, GLYCOPYRROLATE 0.2 MG IV PUSH and dosages were recorded on the sedation form. The patient was recovered from the sedation without complication or incident. Patient returned to pre-sedation level of awareness. The monitoring was discontinued at this time. Post-anesthesia evaluation: Respiratory function, cardiovascular function, temperature, and mental status did return to pre-anesthetic state. Pain was controlled. The patient did tolerate p.o. Visit Coding Pulmonary Billing Provider: LESLIE APPIAH MD Date of Service if different f: Dec 09, 2024 Common Visit Codes: [id number] INP/OBS CARE(HIGH) Procedure Codes: 19565-[id number] SEDATION INITIAL 15, 30503-[id number] SEDATION +15MIN LESLIE APPIAH MD Dec 09, 2024 12:33
--- NOTE | 2024-12-09 12:40 | DVHNC2 ---
Procedure - Bronchoscopy procedure note: Indications: Left lower lobe atelectasis, Possible mucous plugging vs endobronchial lesion. Medicines: See it project manager notes. Complications: None Procedure: Patient medications and allergies reviewed. The risks and benefits of the procedure and the sedation options and risk were discussed with the patient's healthcare proxy. All questions were answered and informed consent was obtained. Patient identification and proposed procedure were verified prior to the procedure by the physician, and a nurse, and the respiratory therapist in Endoscopy room. The heart rate, respiratory rate, oxygen saturations, blood pressure, adequacy of pulmonary ventilation, and response to care were monitored throughout the procedure. The physical status of the patient was reassessed after the procedure. After obtaining informed consent, the bronchoscope was introduced through the endotracheal tube and advanced into the trachea bronchial tree of both lungs. The procedure was accomplished without difficulty. The patient tolerated the procedure well. Findings: The trachea is in normal caliber. The tiffanie is sharp. The tracheobronchial tree of the right lung was examined to at least the first subsegmental level. The bronchial mucosa and anatomy in the right lung are normal. There are no endobronchial lesions. There were no secretions. The left upper lobe, lingula, and left lower lobe were examined to at least the first subsegmental level. Bronchial mucosa and anatomy in the left upper lobe and lingula are normal. There were endobronchial lesions occluding LLL. Left lower lobe (LLL) Bronchoalveolar lavage (BAL) obtained. LLL BAL sent for gram stain and culture, viral culture, fungal culture, and AFB smear and culture. LLL Brushings and biopsy were obtained from endobronchial lesion. There was no active bleeding at the completion of the procedure. Estimated blood loss: Less than 5 mL. Impression: Left lower lobe endobronchial lesion causing LLL collapse Mucous plugging from L6-L10 LLL BAL performed LLL Brushings and biopsy Recommendation: Follow-up LLL BAL, brushings, biopsy results. Procedure codes: 95249, bronchoscopy, rigid and flexible, including fluoroscopic guidance, one performed; with bronchial endobronchial biopsy, single or multiple sites Visit Coding Pulmonary Billing Provider: LESLIE PALMER MD Date of Service if different f: Dec 09, 2024 Common Visit Codes: [id number] INP/OBS CARE(HIGH) Procedure Codes: 02209-[id number] (14090) LESLIE PALMER MD Dec 09, 2024 12:40
[2024-12-09 13:51] LABS: Hematocrit 40.5 % (41.0-53.0); Hemoglobin 13.0 g/dL (13.5-17.5); Mean Corpuscular Hemoglobin 31.9 pg (28.0-32.0); Mean Corpuscular Volume 99.3 fL (80.0-100.0)
[2024-12-09 14:00] LABS: Anion Gap 10 (5-15); Carbon Dioxide 22 mmol/L (20-31); Potassium 4.3 mmol/L (3.5-5.1); Sodium 140 mmol/L (136-145)
[2024-12-09 14:06] LABS: BUN/Creatinine Ratio 12.4 (10.0-20.0); Blood Urea Nitrogen 11 mg/dL (9-23); Glucose 103 mg/dL (74-106)
[2024-12-09 14:11] LABS: Total Cells Counted 100.0 (100)
[2024-12-09 14:19] LABS: Calcium 8.1 mg/dL (8.7-10.4); Chloride 108 mmol/L (98-107)
[2024-12-09] MEDS: THROAT LOZENGES(CEPASTAT) MT PRN (16:15)
--- NOTE | 2024-12-09 19:45 | DVHPN2 ---
Subjective DOS: 12/09/2024 Patient seen and examined at bedside. On supplemental oxygen Overnight events reviewed. Reviewed: Care Plan, H&P, Labs, Medications, Previous Orders, Radiology Changes from previous H/P or p: No Changes Respiratory: Shortness of breath, Hemoptysis Objective Vitals Vital Signs Date Time Temp Pulse Resp B/P (MAP) Pulse Ox O2 Delivery O2 Flow Rate FiO2 12/09/24 16:44 98.3 77 17 156/92 (113) 95 98.3 12/09/24 13:40 Nasal Cannula 1.0 12/09/24 13:40 24 Intake/Output Intake and Output 12/09/24 07:00 Intake Total 1750 ml Output Total 1200 ml Balance 550 ml Intake Oral 1150 ml IV Total 600 ml Output Urine Total 1200 ml General Appearance: Alert, Cooperative, No acute distress HEENT: Atraumatic, PERRLA, EOMI, Mucous membr. moist/pink Neck: Supple Lungs: Clear to auscultation, Normal air movement Cardiovascular: Regular rate, Normal S1, Normal S2, No murmurs, Gallops, Rubs Abdomen: Normal bowel sounds, Soft, No tenderness Neuro: Cranial nerves 3-12 NL Psych/Mental Status: Mental status NL Medications Current Medications Medications Dose Ordered Sig/Rc Route Start Time Stop Time Status Last Admin Dose Admin Vancomycin HCl 0 ml @ 0 mls/hr UD IV 12/04/24 13:15 Cefepime HCl 50 ml @ 12.5 mls/hr Q8HR IV 12/04/24 14:00 12/09/24 13:29 12.5 MLS/HR Albuterol 2.5 mg Q4HR NEB 12/04/24 14:00 12/09/24 18:56 2.5 MG Ipratropium [place] 0.5 mg Q4HR NEB 12/04/24 14:00 12/09/24 18:55 0.5 MG Ondansetron HCl 4 mg Q4HP PRN IV 12/04/24 13:15 Acetaminophen 650 mg Q6HP PRN PO 12/04/24 13:15 Ergocalciferol 50,000 unit QWEEKLY PO 12/04/24 13:30 Finasteride 5 mg DAILY PO 12/05/24 10:00 12/09/24 10:54 5 MG Hydroxyurea 500 mg DAILY PO 12/05/24 10:00 12/09/24 10:54 500 MG Tamsulosin HCl 0.4 mg QPM PO 12/04/24 18:00 12/09/24 17:52 0.4 MG Patient Own Medication 1 Q24H OP 12/06/24 23:00 12/08/24 23:17 1 Timolol Maleate 1 drop BIDBRS EACHEYE 12/07/24 08:00 12/09/24 17:52 1 DROP Amiodarone HCl 200 mg DAILY PO 12/08/24 10:00 12/09/24 10:54 200 MG Polyethylene Glycol 17 gm DAILYPRN PRN PO 12/07/24 16:00 12/08/24 09:20 17 GM Docusate Sodium 100 mg BIDPRN PRN PO 12/07/24 16:00 12/08/24 17:47 100 MG Vancomycin HCl 250 ml @ 200 mls/hr Q12HR IV 12/07/24 22:00 12/09/24 10:54 200 MLS/HR Enoxaparin Sodium 100 mg Q12HR SC 12/08/24 22:00 12/09/24 10:54 100 MG Metoprolol Succinate 25 mg DAILY PO 12/09/24 10:00 12/09/24 10:57 25 MG Throat Lozenges 1 charly Q4HP PRN MT 12/09/24 14:15 12/09/24 16:15 1 CHARLY Laboratory Results Laboratory Tests 12/09/24 13:30 Chemistry Test 12/09/24 13:30 Calcium Level 8.1 mg/dL (8.7-10.4) L Urinalysis Test 12/04/24 13:09 Urine Color Light-yellow (Yellow) Urine Clarity Clear (Clear) Urine pH 6.0 (5.0-9.0) Urine Specific [place] 1.013 (1.001-1.035) Urine Protein Negative (Negative) Urine Ketones 2+ (Negative) H Urine Blood 1+ /uL (Negative) H Urine Nitrite Negative (Negative) Urine Bilirubin Negative (Negative) Urine Urobilinogen Normal mg/dL (Negative) Urine Leukocyte Esterase Negative /uL (Negative) Urine RBC 5 /hpf (0 - 3) Urine Microscopic WBC 1 /HPF (0-3) Urine Squamous Epithelial Cells None seen /hpf (<5) Urine Bacteria None seen /hpf (None Seen) Urine Glucose Normal mg/dL (Normal) Microbiology Microbiology Date/Time Source Procedure Growth Status 12/09/24 08:55 Lung Pending Resulted 12/09/24 08:55 Lung Pending Resulted 12/09/24 08:55 Lung Pending Resulted 12/09/24 08:55 Lung Pending Resulted 12/09/24 08:55 Lung - Final See Separate Report... Resulted 12/04/24 10:05 Blood Blood Culture - Final NO GROWTH AFTER 5 DAYS OF INCUBATION. Complete Assessment/Plan Assessment/Plan Impression: Acute hypoxic respiratory failure Dependence on supplemental oxygen Lung collapse, r/o cancer vs. mucous plugging Atelectasis Pneumonia, likely GNR Elevated D-dimer. Rule out PE. Hx of nicotine dependence Events: Remains on supplemental oxygen, 2 LPM NC Taper O2 as tolerated Patient is s/p bronchoscopy with biopsy; findings include occluding left lower lobe bronchus endobronchial lesion Follow up results of BAL cultures, brushings and biopsy Please see separate procedure note for details. Continue bronchodilators Continue antibiotics Continue antitussive Incentive spirometry Chest physiotherapy. Cardiology recs appreciated Labs and imaging reviewed. Rest of plan as noted below. Plan: Supplemental oxygen Titrate to keep O2 sats above 92%. CT angio on 12/04/24 showed No pulmonary embolism Complete collapse of the left lung with left-sided endobronchial impaction secondary to mass versus secretions. Superimposed suspected consolidation of the central aspect of the collapsed left lung. Inconspicuous area of centrilobular ground-glass without consolidation in the posterior basilar segment, right lower lobe. small area of possible pneumonitis. No measurable lymphadenopathy Continue bronchodilators. Continue antibiotics Incentive spirometry Plan for bronchoscopy with bronchoalveolar lavage to clear suspected mucous plugs, possible brushings, possible biopsy. Monitor renal function. Monitor electrolytes. Supplement as necessary. Monitor ins and outs. DVT prophylaxis. Prognosis: Poor given patient's multiple co-morbidities. Rest of plan per hospitalist and other consultants. Thank you, Dr. Borden, for allowing me to participate in this patient's care. Further recommendations will depend on the patient's clinical course. Please do not hesitate to contact me if you have any questions or concerns. This medical document was created using an electronic medical record system with [employer] system. Although these documentations are being carefully reviewed, there may still be some phonetic and typographical changes. The errors are purely typographical, due to imperfection on the software program, and do not reflect any compromise in the patient's medical care. Plan discussed with: Patient, Other (RN Candace) My Orders Orders - LESLIE PALMER MD Procedure Category Date Status Time Chest Portable XY 12/09/24 Resulted 09:26 Respiratory Culture RAVI 12/09/24 In Process W/ Gs 12:47 Fungus Culture With RAVI 12/09/24 In Process Stain 12:47 Cytology RAVI 12/09/24 Transmitted 12:47 AFB PATHOLOGY 12/09/24 Transmitted [id number] 12:47 Visit Coding Pulmonary Billing Provider: LESLIE PALMER MD Date of Service if different f: Dec 09, 2024 Common Visit Codes: [id number] INP/OBS CARE(HIGH) LESLIE PALMER MD Dec 09, 2024 19:45
[2024-12-10] VITALS (13 sets, daily range): BP systolic 137–146; BP diastolic 76–86; PULSE 63–80; RESP 14–20; TEMP 97.6–99.3; O2SAT 97–100
[2024-12-10 05:18] LABS: Hematocrit 37.6 % (41.0-53.0); Hemoglobin 12.5 g/dL (13.5-17.5); Mean Corpuscular Hemoglobin 32.2 pg (28.0-32.0); Mean Corpuscular Volume 97.1 fL (80.0-100.0)
[2024-12-10 05:29] LABS: Chloride 107 mmol/L (98-107); Potassium 3.7 mmol/L (3.5-5.1); Sodium 140 mmol/L (136-145)
[2024-12-10 05:30] LABS: Anion Gap 11 (5-15); Carbon Dioxide 22 mmol/L (20-31)
[2024-12-10 05:33] LABS: Calcium 8.5 mg/dL (8.7-10.4)
[2024-12-10 05:36] LABS: BUN/Creatinine Ratio 7.2 (10.0-20.0); Glucose 85 mg/dL (74-106)
[2024-12-10 05:38] LABS: Blood Urea Nitrogen 6 mg/dL (9-23)
[2024-12-10 06:50] LABS: Total Cells Counted 100.0 (100)
--- NOTE | 2024-12-10 13:30 | DVHPN2 ---
Reviewed: Care Plan, H&P, Labs, Medications, Previous Orders, Radiology Changes from previous H/P or p: No Changes General: Per HPI Respiratory: Shortness of breath, Hemoptysis Objective Vitals Vital Signs Date Time Temp Pulse Resp B/P (MAP) Pulse Ox O2 Delivery O2 Flow Rate FiO2 12/10/24 12:50 97.6 65 18 138/86 (103) 98 97.6 12/10/24 10:29 Room Air 0.0 12/10/24 10:29 21 Intake/Output Intake and Output 12/10/24 07:00 Intake Total 1860.0 ml Output Total 1580 ml Balance 280.0 ml Intake Oral 1360 ml IV Total 500.0 ml Output Urine Total 1580 ml General Appearance: Alert, Cooperative, No acute distress HEENT: Atraumatic, PERRLA, EOMI, Mucous membr. moist/pink Neck: Supple Lungs: Clear to auscultation, Normal air movement Cardiovascular: Regular rate, Normal S1, Normal S2, No murmurs, Gallops, Rubs Abdomen: Normal bowel sounds, Soft, No tenderness Neuro: Cranial nerves 3-12 NL Psych/Mental Status: Mental status NL Medications Current Medications Medications Dose Ordered Sig/Rc Route Start Time Stop Time Status Last Admin Dose Admin Vancomycin HCl 0 ml @ 0 mls/hr UD IV 12/04/24 13:15 Cefepime HCl 50 ml @ 12.5 mls/hr Q8HR IV 12/04/24 14:00 12/10/24 06:05 12.5 MLS/HR Albuterol 2.5 mg Q4HR NEB 12/04/24 14:00 12/10/24 10:29 2.5 MG Ipratropium [place] 0.5 mg Q4HR NEB 12/04/24 14:00 12/10/24 10:29 0.5 MG Ondansetron HCl 4 mg Q4HP PRN IV 12/04/24 13:15 Acetaminophen 650 mg Q6HP PRN PO 12/04/24 13:15 Ergocalciferol 50,000 unit QWEEKLY PO 12/04/24 13:30 Finasteride 5 mg DAILY PO 12/05/24 10:00 12/10/24 10:00 5 MG Hydroxyurea 500 mg DAILY PO 12/05/24 10:00 12/10/24 08:39 500 MG Tamsulosin HCl 0.4 mg QPM PO 12/04/24 18:00 12/09/24 17:52 0.4 MG Patient Own Medication 1 Q24H OP 12/06/24 23:00 12/09/24 22:43 1 Timolol Maleate 1 drop BIDBRS EACHEYE 12/07/24 08:00 12/10/24 08:38 1 DROP Amiodarone HCl 200 mg DAILY PO 12/08/24 10:00 12/10/24 08:44 200 MG Polyethylene Glycol 17 gm DAILYPRN PRN PO 12/07/24 16:00 12/08/24 09:20 17 GM Docusate Sodium 100 mg BIDPRN PRN PO 12/07/24 16:00 12/10/24 08:40 100 MG Vancomycin HCl 250 ml @ 200 mls/hr Q12HR IV 12/07/24 22:00 12/10/24 08:38 200 MLS/HR Enoxaparin Sodium 100 mg Q12HR SC 12/08/24 22:00 12/10/24 08:40 100 MG Metoprolol Succinate 25 mg DAILY PO 12/09/24 10:00 12/10/24 08:43 25 MG Throat Lozenges 1 charly Q4HP PRN MT 12/09/24 14:15 12/10/24 06:12 1 CHARLY Laboratory Results Laboratory Tests 12/10/24 05:02 Chemistry Test 12/10/24 05:02 Calcium Level 8.5 mg/dL (8.7-10.4) L Urinalysis Test 12/04/24 13:09 Urine Color Light-yellow (Yellow) Urine Clarity Clear (Clear) Urine pH 6.0 (5.0-9.0) Urine Specific [place] 1.013 (1.001-1.035) Urine Protein Negative (Negative) Urine Ketones 2+ (Negative) H Urine Blood 1+ /uL (Negative) H Urine Nitrite Negative (Negative) Urine Bilirubin Negative (Negative) Urine Urobilinogen Normal mg/dL (Negative) Urine Leukocyte Esterase Negative /uL (Negative) Urine RBC 5 /hpf (0 - 3) Urine Microscopic WBC 1 /HPF (0-3) Urine Squamous Epithelial Cells None seen /hpf (<5) Urine Bacteria None seen /hpf (None Seen) Urine Glucose Normal mg/dL (Normal) Microbiology Microbiology Date/Time Source Procedure Growth Status 12/09/24 08:55 Lung Pending Resulted 12/09/24 08:55 Lung Pending Resulted 12/09/24 08:55 Lung Pending Resulted 12/09/24 08:55 Lung Pending Resulted 12/09/24 08:55 Lung - Final See Separate Report... Resulted 12/09/24 08:55 Bronchial Washings Gram Stain Pending Resulted 12/09/24 08:55 Bronchial Washings Respiratory Culture - Preliminary Resulted 12/04/24 10:05 Blood Blood Culture - Final NO GROWTH AFTER 5 DAYS OF INCUBATION. Complete Assessment/Plan Assessment/Plan Acute hypoxic respiratory failure requiring Oxymizer oxygen to keep saturation oxygen above 92% Acute Gram-positive pneumonia Hemoptysis Complete collapse of the left lung with left-sided endobronchial impaction secondary to mass versus secretions. Superimposed suspected consolidation of the central aspect of the collapse left lung. Elevated D-dimer rule out PE History of right extracorporeal shockwave lithotripsy due to kidney stone History of tobacco use Continuing current management. Continuing with IV antibiotic. Continuing with Oxymizer. We will try to wean the patient off. Continuing with nebulizer. Appreciate Dr Appiah ,Pulmonology input. Status post bronchoscopy and biopsy. We will give cough drops PRN for cough Discussed with patient at bedside in length regarding to plan of care. This medical document was created using an electronic medical record system with [employer] direct computerized dictation system. Although this document has been carefully reviewed, there may still be some phonetic and typographical errors. These areas are purely typographical due to imperfections of the software programs, and do not reflect any compromise in the patient's medical care. Date of Service: Dec 10, 2024 Billing Provider: MAGALYS GORDON DO Common Visit Codes: [id number] INP/OBS CARE(HIGH) MAGALYS GORDON DO Dec 10, 2024 13:30
[2024-12-10] MEDS ORDERED: AMIO200T13 PO (14:10)
[2024-12-10] MEDS ORDERED: METO-6 PO (14:10)
--- NOTE | 2024-12-10 14:11 | DVHDS2 ---
Discharge Summary Date of Admission Dec 04, 2024 at 13:09 Date of Discharge: Dec 10, 2024 Labs/Diagnostic Data: Laboratory Results Test 12/10/24 05:02 12/09/24 20:59 12/08/24 12:45 12/08/24 05:33 White Blood Count 3.9 10^3/uL (4.4-10.8) Red Blood Count 3.87 10^6/uL (4.5-5.90) Hemoglobin 12.5 g/dL (13.5-17.5) Hematocrit 37.6 % (41.0-53.0) Mean Corpuscular Volume 97.1 fL (80.0-100.0) Mean Corpuscular Hemoglobin 32.2 pg (28.0-32.0) Mean Corpuscular Hemoglobin Concent 33.1 g/dL (32.0-36.0) Red Cell Distribution Width 18.3 % (11.8-14.3) Platelet Count 222 10^3/uL (140-450) Mean Platelet Volume 9.3 fL (6.9-10.8) Neutrophils (%) (Auto) % (37.0-80.0) Lymphocytes (%) (Auto) % (10.0-50.0) Monocytes (%) (Auto) % (0.0-12.0) Basophils (%) (Auto) % (0.0-2.0) Neutrophils # (Auto) 10 ^3/uL (1.6-8.6) Lymphocytes # (Auto) 10 ^3/uL (0.4-5.4) Monocytes # (Auto) 10 ^3/uL (0-1.3) Differential Total Cells Counted 100.0 (100) Neutrophils % (Manual) 58 (37.0-80.0) Band Neutrophils % (Manual) 0 Lymphocytes % (Manual) 12 (10.0-50.0) Monocytes % (Manual) 28 (0-12) Eosinophils % (Manual) 2 (0-7) Basophils % (Manual) 0 (0.0-2.0) Metamyelocytes % (manual) 0 Myelocytes % (Manual) 0 Promyelocytes % (Manual) 0 Blast Cells % (Manual) 0 Reactive Lymphocytes 0 Platelet Estimate Adequate Sodium Level 140 mmol/L (136-145) Potassium Level 3.7 mmol/L (3.5-5.1) Chloride Level 107 mmol/L (98-107) Carbon Dioxide Level 22 mmol/L (20-31) Anion Gap 11 (5-15) Blood Urea Nitrogen 6 mg/dL (9-23) Creatinine 0.83 mg/dL (0.700-1.30) Glomerular Filtration Rate Calc 90 mL/min (>90) BUN/Creatinine Ratio 7.2 (10.0-20.0) Serum Glucose 85 mg/dL (74-106) Calcium Level 8.5 mg/dL (8.7-10.4) Vancomycin Level Trough 17.1 ug/mL (5-10) Influenza Type A Antigen Negative (Negative) Influenza Type B Antigen Negative (Negative) SARS-CoV-2 Antigen (Rapid) Negative (NEGATIVE) Hemoglobin A1c 5.2 % A1C (<5.7) Magnesium Level 2.1 mg/dL (1.6-2.6) Thyroid Stimulating Hormone (TSH) 1.40 uIU/mL (0.55-4.78) Test 12/05/24 04:39 12/04/24 13:43 12/04/24 13:09 12/04/24 12:55 Ovalocytes Few Total Bilirubin 2.4 mg/dL (0.2-1.0) Aspartate Amino Transferase (AST) 18 U/L (13-40) Alanine Aminotransferase (ALT) 10 U/L (7-40) Alkaline Phosphatase 52 U/L (46-116) Total Protein 7.5 g/dL (5.7-8.2) Albumin 4.0 g/dL (3.2-4.8) D-Dimer, Quantitative 0.58 mg/L FEU (0.0-0.49) B-Type Natriuretic Peptide 62.75 pg/mL (0-100) Urine Color Light-yellow (Yellow) Urine Clarity Clear (Clear) Urine pH 6.0 (5.0-9.0) Urine Specific [place] 1.013 (1.001-1.035) Urine Protein Negative (Negative) Urine Ketones 2+ (Negative) Urine Blood 1+ /uL (Negative) Urine Nitrite Negative (Negative) Urine Bilirubin Negative (Negative) Urine Urobilinogen Normal mg/dL (Negative) Urine Leukocyte Esterase Negative /uL (Negative) Urine RBC 5 /hpf (0 - 3) Urine Microscopic WBC 1 /HPF (0-3) Urine Squamous Epithelial Cells None seen /hpf (<5) Urine Bacteria None seen /hpf (None Seen) Urine Glucose Normal mg/dL (Normal) Urine Opiates Screen Neg (NEGATIVE) Urine Fentanyl Screen Neg (NEGATIVE) Urine Barbiturates Screen Neg (NEGATIVE) Urine Phencyclidine Screen Neg (NEGATIVE) Urine Amphetamines Screen Neg (NEGATIVE) Urine Benzodiazepines Screen Neg (NEGATIVE) Urine Cocaine Screen Neg (NEGATIVE) Urine Cannabinoids Screen Neg (NEGATIVE) Troponin I High Sensitivity 23 ng/L (</=54) Test 12/04/24 11:13 12/04/24 10:09 Blood Gas Specimen Type Arterial Blood Gas Sample Site Right radial Blood Gas Patient Temperature 37.0 Arterial Blood Date Drawn [id number] Arterial Blood pH 7.463 (7.350-7.450) Arterial Blood Partial Pressure CO2 28.7 mmHg (35.0-48.0) Arterial Blood Partial Pressure O2 59.3 mmHg (83.0-108.0) Arterial Blood HCO3 20.1 mmol/L (21.0-28.0) Arterial Blood Oxygen Saturation 91.2 % (94.0-98.0) Arterial Blood Base Excess -2.3 mmol/L (-2.0-3.0) Arterial Blood Oxyhemoglobin 89.8 % (94.0-98.0) Arterial Blood Carboxyhemoglobin 0.9 % (0.5-1.5) Arterial Blood Methemoglobin 0.6 % (0.0-1.5) Gary Test Yes Blood Gas Total Hemoglobin 14.90 g/dL (13.5-17.5) Blood Gas Modality Mask - bipap Blood Gas Spontaneous Rate 19 FiO2 % 100.0 Blood Gas EPAP 6 Blood Gas IPAP 12 Eosinophils (%) (Auto) 0.5 % (0.0-7.0) Eosinophils # (Auto) 0 10 ^3/uL (0-0.8) Basophils # (Auto) 0 10 ^3/uL (0-0.2) Nucleated Red Blood Cells 0.2 % Lactic Acid Level 1.4 mmol/L (0.4-2.0) Other Laboratory Tests 12/10/24 05:02 Discharge Disposition: Home Discharge Instruct/Medications Diet: Cardiac 2g Na,low cholest Activity: No Restrictions, As Tolerated Scheduled Amiodarone HCl (Amiodarone HCl), 200 MG PO DAILY Aspirin (Aspir-Low), 81 MG PO DAILY, (Reported) Finasteride (Finasteride), 5 MG PO DAILY, (Reported) Hydroxyurea (Hydroxyurea), 500 MG PO DAILY, (Reported) Metoprolol Succinate (Toprol Xl), 25 MG PO DAILY Sildenafil Citrate (Viagra), 1 TAB PO DAILYP, (Reported) Tamsulosin Hcl (Tamsulosin Hcl), 0.4 MG PO QPM, (Reported) Miscellaneous Medications Albuterol Sulfate (Ventolin Mdi), Unknown Dose IN, (Reported) Bimatoprost (Lumigan), 0.01 % OP, (Reported) Ergocalciferol (Drisdol), 50,000 UNIT PO, (Reported) Timolol Maleate (Timolol Maleate Ophthalmi), 0.5 % OP, (Reported) Discharge Statement: "Patient was advised to return to the ER or call 911 if any headaches, dizziness, shortness of breath, chest pain, abdominal pain, bleeding, fevers, or worsening of medical condition. Patient was counseled about treatment plan, medications, possible side effects, patientverbalized understanding. All questions were answered to the best of my ability. This discharge took greater then 30 minutes in planning, reviewing documentation, counseling the patient, and discussing with other team members." ASSESSMENT ASSESSMENT Assessment MAGALYS GORDON DO Dec 10, 2024 14:11
--- NOTE | 2024-12-10 21:38 | DVHPN2 ---
Subjective DOS: 12/10/2024 Patient seen and examined at bedside. On room air. Overnight events reviewed. Reviewed: Care Plan, H&P, Labs, Medications, Previous Orders, Radiology Changes from previous H/P or p: Changes General: Per HPI Respiratory: Shortness of breath, Hemoptysis Objective Vitals Vital Signs Date Time Temp Pulse Resp B/P (MAP) Pulse Ox O2 Delivery O2 Flow Rate FiO2 12/10/24 14:58 72 18 100 12/10/24 14:50 Room Air* 0 21 12/10/24 12:50 97.6 138/86 (103) 97.6 Intake/Output Intake and Output 12/10/24 06:59 Intake Total 1860.0 ml Output Total 1580 ml Balance 280.0 ml Intake Oral 1360 ml IV Total 500.0 ml Output Urine Total 1580 ml General Appearance: Alert, Cooperative, No acute distress HEENT: Atraumatic, PERRLA, EOMI, Mucous membr. moist/pink Neck: Supple Lungs: Clear to auscultation, Normal air movement Cardiovascular: Regular rate, Normal S1, Normal S2, No murmurs, Gallops, Rubs Abdomen: Normal bowel sounds, Soft, No tenderness Neuro: Cranial nerves 3-12 NL Psych/Mental Status: Mental status NL Laboratory Results Laboratory Tests 12/10/24 05:02 Chemistry Test 12/10/24 05:02 Calcium Level 8.5 mg/dL (8.7-10.4) L Urinalysis Test 12/04/24 13:09 Urine Color Light-yellow (Yellow) Urine Clarity Clear (Clear) Urine pH 6.0 (5.0-9.0) Urine Specific [place] 1.013 (1.001-1.035) Urine Protein Negative (Negative) Urine Ketones 2+ (Negative) H Urine Blood 1+ /uL (Negative) H Urine Nitrite Negative (Negative) Urine Bilirubin Negative (Negative) Urine Urobilinogen Normal mg/dL (Negative) Urine Leukocyte Esterase Negative /uL (Negative) Urine RBC 5 /hpf (0 - 3) Urine Microscopic WBC 1 /HPF (0-3) Urine Squamous Epithelial Cells None seen /hpf (<5) Urine Bacteria None seen /hpf (None Seen) Urine Glucose Normal mg/dL (Normal) Microbiology Microbiology Date/Time Source Procedure Growth Status 12/09/24 08:55 Lung Pending Resulted 12/09/24 08:55 Lung Pending Resulted 12/09/24 08:55 Lung Pending Resulted 12/09/24 08:55 Lung Pending Resulted 12/09/24 08:55 Lung - Final See Separate Report... Resulted 12/09/24 08:55 Bronchial Washings Gram Stain - Final Resulted 12/09/24 08:55 Bronchial Washings Respiratory Culture - Preliminary Resulted 12/04/24 10:05 Blood Blood Culture - Final NO GROWTH AFTER 5 DAYS OF INCUBATION. Complete Assessment/Plan Assessment/Plan Impression: Acute hypoxic respiratory failure Dependence on supplemental oxygen Lung collapse, r/o cancer vs. mucous plugging Atelectasis Pneumonia, likely GNR Elevated D-dimer. Rule out PE. Hx of nicotine dependence Events: Breathing on room air Supplemental oxygen PRN Patient is s/p bronchoscopy with biopsy on 12/09/24; findings include occluding left lower lobe bronchus endobronchial lesion Follow up results of BAL cultures, brushings and biopsy Please see separate procedure note for details. Continue bronchodilators Continue antibiotics Continue antitussive Incentive spirometry Chest physiotherapy. Amiodarone PO Cardiology recs appreciated Lovenox for DVT ppx Patient is stable for discharge from the pulmonary standpoint Follow up in Pulmonary Clinic in 1 to 2 weeks to follow up on lung biopsy results. Labs and imaging reviewed. Rest of plan as noted below. Plan: Supplemental oxygen PRN. Titrate to keep O2 sats above 92%. CT angio on 12/04/24 showed No pulmonary embolism Complete collapse of the left lung with left-sided endobronchial impaction secondary to mass versus secretions. Superimposed suspected consolidation of the central aspect of the collapsed left lung. Inconspicuous area of centrilobular ground-glass without consolidation in the posterior basilar segment, right lower lobe. small area of possible pneumonitis. No measurable lymphadenopathy Continue bronchodilators. Continue antibiotics Incentive spirometry Monitor renal function. Monitor electrolytes. Supplement as necessary. Monitor ins and outs. DVT prophylaxis. Prognosis: Poor given patient's multiple co-morbidities. Rest of plan per hospitalist and other consultants. Thank you, Dr. Borden, for allowing me to participate in this patient's care. Further recommendations will depend on the patient's clinical course. Please do not hesitate to contact me if you have any questions or concerns. This medical document was created using an electronic medical record system with [employer] dictation system. Although these documentations are being carefully reviewed, there may still be some phonetic and typographical changes. The errors are purely typographical, due to imperfection on the software program, and do not reflect any compromise in the patient's medical care. Plan discussed with: Patient, Other (RN Sabrina) Visit Coding Pulmonary Billing Provider: LESLIE PALMER MD Date of Service if different f: Dec 10, 2024 Common Visit Codes: [id number] INP/OBS CARE(HIGH) LESLIE PALMER MD Dec 10, 2024 21:38
== END 2024-12-10 16:25 | disposition home or self-care (01) | DRG 177 ==
LOC: ER 09:05 → OVERFLOW 13:09 → TELE-WESTW 12-05 17:40
PROVIDERS: ADMIT Internal Medicine; ATTEND Internal Medicine
PROC: 5A09357 Assistance with Respiratory Ventilation, Less than 24 Consecutive Hours, Continuous Positive Airway Pressure (ICD-10-PCS; 2024-12-04)
PROC: 0BDB8ZX Extraction of Left Lower Lobe Bronchus, Via Natural or Artificial Opening Endoscopic, Diagnostic (ICD-10-PCS; 2024-12-09)
PROC: 0B9J8ZX Drainage of Left Lower Lung Lobe, Via Natural or Artificial Opening Endoscopic, Diagnostic (ICD-10-PCS; principal; 2024-12-09 08:35)
DX: J15.69 Pneumonia due to other Gram-negative bacteria (principal); J96.01 Acute respiratory failure with hypoxia; J90 Pleural effusion, not elsewhere classified; I48.0 Paroxysmal atrial fibrillation; J15.9 Unspecified bacterial pneumonia; N52.9 Male erectile dysfunction, unspecified; I70.0 Atherosclerosis of aorta; Z79.899 Other long term (current) drug therapy; Z88.8 Allergy status to other drugs, medicaments and biological substances; Z87.891 Personal history of nicotine dependence; Z79.82 Long term (current) use of aspirin; Z99.81 Dependence on supplemental oxygen; Z79.01 Long term (current) use of anticoagulants; Z87.442 Personal history of urinary calculi
CPT/HCPCS: 31624; 36415; 71045; 71250; 71275; 80048; 80053; 80202; 80307; 81001; 83036; 83605; 83735; 83880; 84443; 84484; 85007; 85025; 85027; 85379; 87040; 87070; 87205; 87426; 87804; 93005; 93306; 94640; 94660; 96365; 99291; 99292; G0378; J0169; J0692; J2250

== ENCOUNTER → 2025-03-10 | Outpatient (CLI) | payer OTHER, MEDICARE ==
[~2025-03-10] MED LIST changes: +AMIO200T13 PO; +METO-6 PO
== END | disposition home or self-care (01) ==
LOC: Rad HDHVI 09:45
PROVIDERS: ATTEND Internal Medicine Cardiovascular Disease
DX: Z01.810 Encounter for preprocedural cardiovascular examination (principal); I77.819 Aortic ectasia, unspecified site
CPT/HCPCS: 93306